=== PATIENT | female | born 1980 | race Caucasian/White ===

== ENCOUNTER → 2016-06-20 | Outpatient (CLI) | payer OTHER ==
--- NOTE | 2016-06-20 10:13 | ECHOS ---
DATE OF SERVICE: 06/20/2016 AGE: 35Y SEX: F HT: 65 WT: 220 lbs. Protocol Mt: X Others: Stress Echo Stage: IV Dur. of Exercise: 9:30 *Heart Rate Blood Pressure *Rest: 63 Rest: 116/68 * *Max. Achieved: 163 Maximum BP: 208/74 85% PMHR: ( ) 100% PMHR: 187 *METS: 10.9 INDICATIONS: CURRENT MEDICATIONS: None. CLINICAL INFORMATION: Screening for shortness of breath and family history of coronary artery disease, history of smoking 1/2 pack of cigarettes a day for 15 years. Allergic to BACTRIM and ERYTHROMYCIN. Resting ECG shows sinus rhythm, rate of 63 beats per minute, [place] interval 0.16, QRS of 0.08, normal ST-T waves. Utilizing a standard Mt protocol, a symptom limited treadmill test was performed. Patient exercised for total of 1-1/2 minutes, attained a peak heart rate of 163 beats per minute, which is approximately 87% of predicted maximum heart rate without any chest pain or pressure or ST segment deviations indicative of ischemia but the patient did have frequent PVCs at peak exertion without any symptoms. Baseline images show normal thickening and contractility. Post exercise images show improved contractility and thickening in all segments, consistent with normal study. 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 Normal stress echocardiogram. 2. Patient has average level of cardiopulmonary fitness as indicated by VO2 max and METs. 3. Patient did not report any symptoms throughout the study.
== END | disposition home or self-care (01) ==
LOC: RADNMMAIN 09:02
PROVIDERS: ATTEND Family Medicine
DX: R94.31 Abnormal electrocardiogram [ECG] [EKG] (principal)
CPT/HCPCS: 93017; 93350

== ENCOUNTER 2016-08-21 12:32 | Emergency (ER) | payer OTHER ==
[2016-08-21 13:40] VITALS: RESP 18
[2016-08-21] MEDS ORDERED: MORPHINE SULFATE 4 MG/ML SYRINGE IVP STA (14:45)
[2016-08-21] MEDS ORDERED: SODIUM CHLORIDE 0.9% 1,000 ML IV ONE (14:45)
[2016-08-21] MEDS ORDERED: KETOROLAC 30 MG/ML 1 ML VIAL IVP STA (14:45)
[2016-08-21] MEDS ORDERED: ONDANSETRON 4 MG/2 ML VIAL IVP STA (14:45)
--- NOTE | 2016-08-21 15:03 | ED ---
General Adult HPI - General Chief complaint: Abdominal Pain Stated complaint: Abd Pain Time Seen by Provider: 08/21/16 14:37 Source: patient, family, RN notes reviewed Mode of arrival: ambulatory Limitations: no limitations - History of Present Illness Initial comments: 36-year-old female with history of renal stones present in for left flank pain. Patient states left flank pain began 2 days ago and has been persistently worsening. She feels like there is some radiation to her left lower abdomen. She states pain feels similar to prior stones. She states her last kidney stone passed was about a year ago. She denies any other abdominal pain associated. She does have some nausea associated but no vomiting. She denies any diarrhea. She denies any fevers or chills. She denies any hematuria or dysuria at this time. - Related Data Home Medications Medication Instructions Recorded Confirmed HYDROcodone/APAP 7.5-325MG [[place] 1 tab PO DAILY PRN 08/21/16 08/21/16 7.5-325] Sertraline [Zoloft] 50 mg PO HS 08/21/16 08/21/16 Previous Rx's Medication Instructions Recorded HYDROcodone/APAP 5-325MG [[place] 1 tab PO Q6HR PRN #12 tab 08/21/16 5-325] Ibuprofen [Motrin] 800 mg PO Q8HR PRN #21 tab 08/21/16 Ondansetron Odt [Zofran Odt] 4 mg PO Q8HR PRN #12 tab 08/21/16 Tamsulosin HCl [Flomax] 0.4 mg PO DAILY #7 cap.er.24h 08/21/16 Allergies Allergy/AdvReac Type Severity Reaction Status Date / Time erythromycin base Allergy Unknown Verified 08/21/16 14:45 sulfamethoxazole Allergy Unknown Verified 08/21/16 14:45 [From Bactrim] trimethoprim [From Bactrim] Allergy Unknown Verified 08/21/16 14:45 Review of Systems ROS Statement: Those systems with pertinent positive or pertinent negative responses have been documented in the HPI. ROS Other: All systems not noted in ROS Statement are negative. Past Medical History Additional Past Medical History / Comment(s): KIDNEY STONES History of Any Multi-Drug Resistant Organisms: None Reported Past Surgical History: Section, Orthopedic Surgery, Tonsillectomy, Tubal Ligation Additional Past Surgical History / Comment(s): LEFT KNEE ARTHROSCOPY, CYSTOSCOPE , LITHOTRIPSY Past Psychological History: Depression Smoking Status: Current every day smoker Past Alcohol Use History: None Reported Past Drug Use History: Marijuana General Exam - General Exam Comments Initial Comments: General: Awake and Alert. No acute distress. Does not appear acutely ill. Obese.. Eyes: MONTEZ, EOM intact. No nystagmus. No scleral icterus. HENT: Atraumatic, normocephalic. Mucous membranes moist. Trachea midline. Neck: The neck is supple, there is no tenderness or JVD. Cardiovascular: Regular rate and rhythm. No murmur, rub, or gallop is appreciated. Distal pulses intact. Respiratory: Lungs are clear to auscultation bilaterally. No wheezes, rales, rhonchi. No respiratory distress. Gastrointestinal: Soft, Nontender. No rebound or guarding. Non-distended. No masses or organomegaly noted. Left CVA tenderness. Musculoskeletal: No tenderness. Normal ROM. No gross deformity. No strength deficits. Neurological: A&Ox3. CN II-XII grossly intact, There are no obvious motor or sensory deficits. Coordination appears grossly intact. Speech is normal. Skin: Skin is warm and dry and no rashes or lesions are noted. Psychiatric: Cooperative, appropriate mood & affect, normal judgment. Limitations: no limitations Course Vital Signs 08/21/16 08/21/16 13:37 16:47 Temperature 98.1 F 96.9 F L Pulse Rate 55 L 51 L Respiratory 18 18 Rate Blood Pressure 126/68 113/55 O2 Sat by Pulse 99 100 Oximetry Medical Decision Making - Medical Decision Making 36-year-old female presenting for left flank pain. History of renal stones. Start IV fluids and pain and nausea medication. CT results with small left nonobstructive ureteral stone. Lab work was stable CBC. Stable BMP. UA without evidence of infection Patient reevaluated and states she is feeling significantly improved after medications. Updated on results and imaging. Discussed plan for discharge home with urology follow-up. Rx for pain and nausea medication provided. Work note provided. Discussed concerning signs symptoms for immediate return to ED. Given follow-up information to Dr. Cullen upon request. Patient is agreeable with plan and discharge home. - Lab Data Result diagrams: 08/21/16 14:45 08/21/16 14:45 Lab Results 0308/21/16 08/21/16 Range/Units 14:45 14:45 14:45 WBC (3.8-10.6) k/uL RBC (3.80-5.40) m/uL Hgb (11.4-16.0) gm/dL Hct (34.0-46.0) % MCV (80.0-100.0) fL MCH (25.0-35.0) pg MCHC (31.0-37.0) g/dL RDW (11.5-15.5) % Plt Count (150-450) k/uL Neutrophils % % Lymphocytes % % Monocytes % % Eosinophils % % Basophils % % Neutrophils # (1.3-7.7) k/uL Lymphocytes # (1.0-4.8) k/uL Monocytes # (0-1.0) k/uL Eosinophils # (0-0.7) k/uL Basophils # (0-0.2) k/uL Sodium 140 (137-145) mmol/L Potassium 4.5 (3.5-5.1) mmol/L Chloride 109 H (98-107) mmol/L Carbon Dioxide 25 (22-30) mmol/L Anion Gap 6 mmol/L BUN 11 (7-17) mg/dL Creatinine 0.66 (0.52-1.04) mg/dL Est GFR (MDRD) Af Amer >60 (>60 ml/min/1.73 sqM) Est GFR (MDRD) Non-Af >60 (>60 ml/min/1.73 sqM) Glucose 88 (74-99) mg/dL Calcium 8.9 (8.4-10.2) mg/dL Urine Color Yellow Urine Appearance Clear (Clear) Urine pH 6.0 (5.0-8.0) Ur Specific [place] 1.016 (1.001-1.035) Urine Protein Negative (Negative) Urine Glucose (UA) Negative (Negative) Urine Ketones Negative (Negative) Urine Blood Moderate H (Negative) Urine Nitrite Negative (Negative) Urine Bilirubin Negative (Negative) Urine Urobilinogen <2.0 (<2.0) mg/dL Ur Leukocyte Esterase Negative (Negative) Urine RBC >182 H (0-5) /hpf Ur Squamous Epith Cells 1 (0-4) /hpf Urine HCG, Qual Not Detected (Not Detectd) 08/21/16 Range/Units 14:45 WBC 7.4 (3.8-10.6) k/uL RBC 4.99 (3.80-5.40) m/uL Hgb 14.8 (11.4-16.0) gm/dL Hct 44.1 (34.0-46.0) % MCV 88.4 (80.0-100.0) fL MCH 29.7 (25.0-35.0) pg MCHC 33.6 (31.0-37.0) g/dL RDW 13.7 (11.5-15.5) % Plt Count 185 (150-450) k/uL Neutrophils % 53 % Lymphocytes % 37 % Monocytes % 6 % Eosinophils % 2 % Basophils % 1 % Neutrophils # 3.9 (1.3-7.7) k/uL Lymphocytes # 2.7 (1.0-4.8) k/uL Monocytes # 0.4 (0-1.0) k/uL Eosinophils # 0.1 (0-0.7) k/uL Basophils # 0.0 (0-0.2) k/uL Sodium (137-145) mmol/L Potassium (3.5-5.1) mmol/L Chloride (98-107) mmol/L Carbon Dioxide (22-30) mmol/L Anion Gap mmol/L BUN (7-17) mg/dL Creatinine (0.52-1.04) mg/dL Est GFR (MDRD) Af Amer (>60 ml/min/1.73 sqM) Est GFR (MDRD) Non-Af (>60 ml/min/1.73 sqM) Glucose (74-99) mg/dL Calcium (8.4-10.2) mg/dL Urine Color Urine Appearance (Clear) Urine pH (5.0-8.0) Ur Specific [place] (1.001-1.035) Urine Protein (Negative) Urine Glucose (UA) (Negative) Urine Ketones (Negative) Urine Blood (Negative) Urine Nitrite (Negative) Urine Bilirubin (Negative) Urine Urobilinogen (<2.0) mg/dL Ur Leukocyte Esterase (Negative) Urine RBC (0-5) /hpf Ur Squamous Epith Cells (0-4) /hpf Urine HCG, Qual (Not Detectd) - Radiology Data Radiology results: report reviewed, image reviewed Disposition Clinical Impression: Flank pain, Left ureteral stone Disposition: HOME SELF-CARE Condition: Stable Instructions: Kidney Stones (ED), Abdominal Pain (ED) Prescriptions: HYDROcodone/APAP 5-325MG [[place] 5-325] 1 tab PO Q6HR PRN #12 tab PRN Reason: Pain Ibuprofen [Motrin] 800 mg PO Q8HR PRN #21 tab PRN Reason: Pain Ondansetron Odt [Zofran Odt] 4 mg PO Q8HR PRN #12 tab PRN Reason: Nausea Tamsulosin HCl [Flomax] 0.4 mg PO DAILY #7 cap.er.24h Referrals: Shawna Biswas MD [Primary Care Provider] - 1-2 days Luis Antonio Cullen MD [STAFF PHYSICIAN] - 1-2 days Time of Disposition: 16:09
[2016-08-21 15:11] LABS: Anion Gap 6 mmol/L; Blood Urea Nitrogen 11 mg/dL (7-17); Calcium 8.9 mg/dL (8.4-10.2); Carbon Dioxide 25 mmol/L (22-30); Chloride 109 mmol/L (98-107); Glucose 88 mg/dL (74-99); Non-African American GFR(MDRD) >60 (>60 ml/min/1.73 sqM); Potassium 4.5 mmol/L (3.5-5.1); Sodium 140 mmol/L (137-145)
[2016-08-21 15:13] LABS: Basophils % (A) 1 %; CH 29.2; CHCM 33.2; Eosinophils # (A) 0.1 k/uL (0-0.7); Eosinophils % (A) 2 %; HCT 44.1 % (34.0-46.0); HDW 2.43; HGB 14.8 gm/dL (11.4-16.0); Luc # (Auto) 0.16; Luc % (Auto) 2; Lymphocytes # (A) 2.7 k/uL (1.0-4.8); Lymphocytes % (A) 37 %; MCH 29.7 pg (25.0-35.0); MCHC 33.6 g/dL (31.0-37.0); MCV 88.4 fL (80.0-100.0); Mean Platelet Volume 6.6; Monocytes # (A) 0.4 k/uL (0-1.0); Monocytes % (A) 6 %; Neutrophils # (A) 3.9 k/uL (1.3-7.7); Neutrophils % (A) 53 %; RBC 4.99 m/uL (3.80-5.40); RDW 13.7 % (11.5-15.5); WBC 7.4 k/uL (3.8-10.6)
[2016-08-21 15:15] LABS: Appearance,Urine Clear (Clear); Bilirubin,Urine Negative (Negative); Glucose,Urine (UA) Negative (Negative); Ketones,Urine Negative (Negative); Leukocyte Esterase,Urine Negative (Negative); Nitrite,Urine Negative (Negative); Particle Count 1054; Protein,Urine Negative (Negative); RBC,Urine >182 /hpf (0-5); Specific Gravity,Urine 1.016 (1.001-1.035); Squamous Epithelial Cell,Urine 1 /hpf (0-4); UA Billing (MACRO vs. MICRO) MICRO; Urobilinogen,Urine <2.0 mg/dL (<2.0)
--- NOTE | 2016-08-21 15:54 | CT ---
EXAMINATION TYPE: CT abdomen pelvis wo con DATE OF EXAM: 08/21/2016 3:40 PM HISTORY: Left flank pain for couple days. CT DLP: 1040.20 mGycm. Automated Exposure Control for Dose Reduction was Utilized. TECHNIQUE: CT scan of the abdomen and pelvis is performed without oral or IV contrast. COMPARISON: CT abdomen and pelvis June 30, 2014 FINDINGS: Within the limitations of a non-contrast study, the following observations are made. LUNG BASES: No significant abnormality is appreciated. LIVER/GB: No significant abnormality is appreciated. PANCREAS: No significant abnormality is seen. SPLEEN: No significant abnormality is seen. ADRENALS: No significant abnormality is seen. KIDNEYS: There are 2-3 calculi measuring 2 mm scattered throughout the left kidney upper pole level s een best coronal images 67 through 69. No right-sided renal calculi are seen. There are stable pelvic phleboliths including 4 mm phlebolith on the left on axial image 139. No hydronephrosis or obstructi ng renal calculi are clearly seen bilaterally. No intraluminal calculi are seen in poorly distended b ladder. BOWEL: Low-lying cecum is present. There is no suspicious small or large bowel dilatation. Previously visualized nonopacified tubular structure in the right lower quadrant is not clearly identified on c urrent study. GENITAL ORGANS: No gross abnormality seen. LYMPH NODES: No greater than 1cm abdominal or pelvic lymph nodes are appreciated. OSSEOUS STRUCTURES: Bilateral pars defects L5 level redemonstrated without significant spondylolisthe sis. There is partially sacralized left L5 segment that shows some narrowing and sclerosis unchanged from prior. OTHER: No significant additional abnormality is seen. IMPRESSION: Tiny nonobstructing left-sided renal calculi. No hydronephrosis or obstructing renal calc alfreda clearly seen bilaterally. No significant new or acute finding is clearly seen to account for raquel ent's symptoms.
[2016-08-21 16:48] VITALS: BP 113/55; PULSE 51; TEMP 96.9
== END 2016-08-21 16:48 | disposition home or self-care (01) ==
LOC: EC 12:32
DX: N20.1 Calculus of ureter (principal); R11.0 Nausea; F17.200 Nicotine dependence, unspecified, uncomplicated; F32.9 Major depressive disorder, single episode, unspecified; Z79.899 Other long term (current) drug therapy; Z88.1 Allergy status to other antibiotic agents; Z88.2 Allergy status to sulfonamides; Z87.442 Personal history of urinary calculi
CPT/HCPCS: 99284; 96374; 96375 ×2; 96361; 36415; 80048; 85025; 81001; 81025; 74176; J2270; J2405; J1885

== ENCOUNTER 2016-08-23 12:50 | Emergency (ER) | payer OTHER ==
[2016-08-23] MEDS ORDERED: KETOROLAC 30 MG/ML 1 ML VIAL IVP STA (14:06)
[2016-08-23] MEDS ORDERED: SODIUM CHLORIDE 0.9% 1,000 ML IV ONE (14:06)
[2016-08-23] MEDS ORDERED: ONDANSETRON 4 MG/2 ML VIAL IVP STA (14:06)
[2016-08-23] MEDS ORDERED: MORPHINE SULFATE 4 MG/ML SYRINGE IVP STA (14:06)
[2016-08-23 14:17] LABS: Basophils % (A) 0 %; CH 29.2; CHCM 33.2; Eosinophils # (A) 0.1 k/uL (0-0.7); Eosinophils % (A) 2 %; HCT 40.8 % (34.0-46.0); HDW 2.44; HGB 13.5 gm/dL (11.4-16.0); Luc % (Auto) 2; Lymphocytes # (A) 2.1 k/uL (1.0-4.8); Lymphocytes % (A) 35 %; MCH 29.2 pg (25.0-35.0); MCHC 33.1 g/dL (31.0-37.0); MCV 88.3 fL (80.0-100.0); Mean Platelet Volume 6.9; Monocytes # (A) 0.4 k/uL (0-1.0); Monocytes % (A) 6 %; Neutrophils # (A) 3.3 k/uL (1.3-7.7); Neutrophils % (A) 55 %; RBC 4.62 m/uL (3.80-5.40); RDW 13.5 % (11.5-15.5); WBC 5.9 k/uL (3.8-10.6); WBC (Perox) 5.79
[2016-08-23 14:28] LABS: HCG,Qualitative Serum Not Detected
[2016-08-23 14:31] LABS: ALT 35 U/L (9-52); AST 20 U/L (14-36); Alkaline Phosphatase 46 U/L (38-126); Anion Gap 7 mmol/L; Blood Urea Nitrogen 12 mg/dL (7-17); Calcium 8.5 mg/dL (8.4-10.2); Carbon Dioxide 23 mmol/L (22-30); Chloride 112 mmol/L (98-107); Glucose 87 mg/dL (74-99); Non-African American GFR(MDRD) >60 (>60 ml/min/1.73 sqM); Potassium 4.2 mmol/L (3.5-5.1); Sodium 142 mmol/L (137-145); Total Bilirubin 0.4 mg/dL (0.2-1.3); Total Protein 6.2 g/dL (6.3-8.2)
[2016-08-23 14:46] LABS: Appearance,Urine Clear (Clear); Bacteria,Urine Rare /hpf; Bilirubin,Urine Negative (Negative); Glucose,Urine (UA) Negative (Negative); Ketones,Urine Negative (Negative); Leukocyte Esterase,Urine Trace (Negative); Mucus,Urine Rare /hpf; Nitrite,Urine Negative (Negative); Particle Count 1551; Protein,Urine Negative (Negative); RBC,Urine 4 /hpf (0-5); Specific Gravity,Urine 1.021 (1.001-1.035); Squamous Epithelial Cell,Urine 1 /hpf (0-4); UA Billing (MACRO vs. MICRO) MICRO; Urobilinogen,Urine <2.0 mg/dL (<2.0); WBC,Urine 5 /hpf (0-5)
--- NOTE | 2016-08-23 14:48 | US ---
EXAMINATION TYPE: US abdomen limited DATE OF EXAM: 08/23/2016 2:36 PM COMPARISON: CT in pacs CLINICAL HISTORY: Pain. Left kidney stones seen on recent CT, left flank pain EXAM MEASUREMENTS: Spleen: wnl Left Kidney: multiple small echogenic foci scattered throughout with largest measuring 0.5cm IMPRESSION: NONOBSTRUCTING LEFT-SIDED NEPHROLITHIASIS.
[2016-08-23] MEDS ORDERED: HYDROmorphone 1 MG/ML 1 ML SYRINGE IM STA (15:36)
[2016-08-23] MEDS ORDERED: HYDROmorphone 1 MG/ML 1 ML SYRINGE IVP STA (15:51)
--- NOTE | 2016-08-23 16:45 | ED ---
General Adult HPI - General Chief complaint: Abdominal Pain Stated complaint: revisit Kidney Stone Time Seen by Provider: 08/23/16 13:33 Source: patient Mode of arrival: ambulatory Limitations: no limitations - History of Present Illness Initial comments: 36-year-old female presented for evaluation of left flank pain radiating around to her left abdomen. She was seen at this facility 2 days ago and had a computed tomography scan that showed a nonobstructing kidney stones without hydronephrosis or hydroureter. Her pain is continued since then and she contacted her urologist who recommended that she come to this facility for further evaluation and management. She admits to vague urinary symptoms but denies any vaginal pain, bleeding, discharge. Mild associated nausea. Further denies shortness of breath chest pain fevers chills. - Related Data Home Medications Medication Instructions Recorded Confirmed Sertraline [Zoloft] 50 mg PO HS 08/21/16 08/23/16 Previous Rx's Medication Instructions Recorded HYDROcodone/APAP 5-325MG [[place] 1 tab PO Q6HR PRN #12 tab 08/21/16 5-325] Ibuprofen [Motrin] 800 mg PO Q8HR PRN #21 tab 08/21/16 Ondansetron Odt [Zofran Odt] 4 mg PO Q8HR PRN #12 tab 08/21/16 Tamsulosin HCl [Flomax] 0.4 mg PO DAILY #7 cap.er.24h 08/21/16 HYDROcodone/APAP 5-325MG [[place] 1 - 2 tab PO Q6HR PRN #14 tab 08/23/16 5-325] Ibuprofen [Motrin] 800 mg PO Q8HR PRN #20 tab 08/23/16 Allergies Allergy/AdvReac Type Severity Reaction Status Date / Time erythromycin base Allergy Unknown Verified 08/21/16 14:45 sulfamethoxazole Allergy Unknown Verified 08/21/16 14:45 [From Bactrim] trimethoprim [From Bactrim] Allergy Unknown Verified 08/21/16 14:45 Review of Systems ROS Statement: Those systems with pertinent positive or pertinent negative responses have been documented in the HPI. ROS Other: All systems not noted in ROS Statement are negative. Constitutional: Denies: fever, chills Eyes: Denies: eye pain, eye discharge, vision change ENT: Denies: ear pain, throat pain, dental pain Respiratory: Denies: cough, dyspnea, wheezes, hemoptysis Cardiovascular: Denies: chest pain, palpitations, dyspnea on exertion, orthopnea Endocrine: Denies: fatigue, polydipsia, polyuria Gastrointestinal: Reports: abdominal pain, nausea. Denies: vomiting, diarrhea, constipation, hematemesis, melena, hematochezia Genitourinary: Reports: urgency, frequency. Denies: dysuria, hematuria, discharge, abnormal menses, dyspareunia Musculoskeletal: Reports: back pain (Flank pain). Denies: myalgia Skin: Denies: rash, lesions Neurological: Denies: headache, weakness Psychiatric: Denies: anxiety, depression Past Medical History Additional Past Medical History / Comment(s): KIDNEY STONES History of Any Multi-Drug Resistant Organisms: None Reported Past Surgical History: Section, Orthopedic Surgery, Tonsillectomy, Tubal Ligation Additional Past Surgical History / Comment(s): LEFT KNEE ARTHROSCOPY, CYSTOSCOPE , LITHOTRIPSY Past Psychological History: Depression Smoking Status: Current every day smoker Past Alcohol Use History: None Reported Past Drug Use History: Marijuana General Exam Limitations: no limitations General appearance: alert, in distress Head exam: Present: atraumatic, normocephalic Eye exam: Present: normal appearance, PERRL, EOMI ENT exam: Present: normal exam, normal oropharynx Neck exam: Present: normal inspection, full ROM Respiratory exam: Present: normal lung sounds bilaterally. Absent: respiratory distress Cardiovascular Exam: Present: regular rate, normal rhythm GI/Abdominal exam: Present: soft. Absent: distended, tenderness Rectal exam: Present: deferred Extremities exam: Present: normal inspection, full ROM Back exam: Present: tenderness, CVA tenderness (L). Absent: normal inspection, full ROM, CVA tenderness (R) Neurological exam: Present: alert, oriented X3, CN II-XII intact, normal gait. Absent: altered Psychiatric exam: Present: normal affect, normal mood Skin exam: Present: warm, dry, intact Course Vital Signs 08/23/16 08/23/16 08/23/16 12:52 15:57 17:03 Temperature 98.1 F 97.8 F Pulse Rate 68 56 L 55 L Respiratory 17 20 16 Rate Blood Pressure 144/86 138/72 133/84 O2 Sat by Pulse 98 98 97 Oximetry Medical Decision Making - Medical Decision Making 36-year-old female with past medical history of kidney stones presenting for evaluation of left flank pain. She was evaluated at this facility 2 days ago and had nonobstructing left renal calculi without hydronephrosis or hydroureter. On physical examination the patient does seem mildly distressed and is holding her left side and states the pain radiates to her left lower quadrant abdomen. Abdomen is soft without peritoneal signs of rigidity, guarding, or rebound. There is left-sided CVA tenderness. Given her recent computed tomography scan will obtain a left-sided ultrasound for further evaluation. There is no pelvic pain and at this time there is no indication for a pelvic ultrasound. Labs revealed hematuria but otherwise no significant abnormalities. Ultrasound showed left renal calculi without hydronephrosis or hydroureter. The patient was reevaluated and had improvement in her pain. She was informed of these results and through shared decision making it was decided that she would be discharged with instructions to follow-up with her primary care physician and Dr. Grant her urologist. She is further advised to return to this facility if her symptoms should worsen or persist. She acknowledged an understanding of this information and agreed with this plan of care - Lab Data Result diagrams: 08/23/16 13:58 08/23/16 13:58 Lab Results 08/23/16 08/23/16 08/23/16 Range/Units 13:58 13:58 13:58 WBC 5.9 (3.8-10.6) k/uL RBC 4.62 (3.80-5.40) m/uL Hgb 13.5 (11.4-16.0) gm/dL Hct 40.8 (34.0-46.0) % MCV 88.3 (80.0-100.0) fL MCH 29.2 (25.0-35.0) pg MCHC 33.1 (31.0-37.0) g/dL RDW 13.5 (11.5-15.5) % Plt Count 170 (150-450) k/uL Neutrophils % 55 % Lymphocytes % 35 % Monocytes % 6 % Eosinophils % 2 % Basophils % 0 % Neutrophils # 3.3 (1.3-7.7) k/uL Lymphocytes # 2.1 (1.0-4.8) k/uL Monocytes # 0.4 (0-1.0) k/uL Eosinophils # 0.1 (0-0.7) k/uL Basophils # 0.0 (0-0.2) k/uL Sodium 142 (137-145) mmol/L Potassium 4.2 (3.5-5.1) mmol/L Chloride 112 H (98-107) mmol/L Carbon Dioxide 23 (22-30) mmol/L Anion Gap 7 mmol/L BUN 12 (7-17) mg/dL Creatinine 0.60 (0.52-1.04) mg/dL Est GFR (MDRD) Af Amer >60 (>60 ml/min/1.73 sqM) Est GFR (MDRD) Non-Af >60 (>60 ml/min/1.73 sqM) Glucose 87 (74-99) mg/dL Calcium 8.5 (8.4-10.2) mg/dL Total Bilirubin 0.4 (0.2-1.3) mg/dL AST 20 (14-36) U/L ALT 35 (9-52) U/L Alkaline Phosphatase 46 (38-126) U/L Total Protein 6.2 L (6.3-8.2) g/dL Albumin 3.5 (3.5-5.0) g/dL Lipase 65 (23-300) U/L HCG, Qual Not Detected Urine Color Yellow Urine Appearance Clear (Clear) Urine pH 6.0 (5.0-8.0) Ur Specific [place] 1.021 (1.001-1.035) Urine Protein Negative (Negative) Urine Glucose (UA) Negative (Negative) Urine Ketones Negative (Negative) Urine Blood Large H (Negative) Urine Nitrite Negative (Negative) Urine Bilirubin Negative (Negative) Urine Urobilinogen <2.0 (<2.0) mg/dL Ur Leukocyte Esterase Trace H (Negative) Urine RBC 4 (0-5) /hpf Urine WBC 5 (0-5) /hpf Ur Squamous Epith Cells 1 (0-4) /hpf Urine Bacteria Rare H (None) /hpf Urine Mucus Rare H (None) /hpf Disposition Clinical Impression: Flank pain, Hematuria Disposition: HOME SELF-CARE Condition: Stable Instructions: Abdominal Pain (ED), Kidney Stones (ED) Additional Instructions: Please use medication as discussed. Please follow up with family doctor if symptoms have not improved over the next two days. Please return to the emergency room if your symptoms increase or worsen or for any other concerns. Prescriptions: HYDROcodone/APAP 5-325MG [[place] 5-325] 1 - 2 tab PO Q6HR PRN #14 tab PRN Reason: Analgesia Ibuprofen [Motrin] 800 mg PO Q8HR PRN #20 tab PRN Reason: Analgesia Referrals: Shawna Biswas MD [Primary Care Provider] - 1-2 days Time of Disposition: 16:44
[2016-08-23 17:03] VITALS: BP 133/84; PULSE 55; RESP 16; TEMP 97.8
== END 2016-08-23 17:00 | disposition home or self-care (01) ==
LOC: EC 12:50
DX: R10.32 Left lower quadrant pain (principal); R31.9 Hematuria, unspecified; R11.0 Nausea; N20.0 Calculus of kidney; F32.9 Major depressive disorder, single episode, unspecified; F17.200 Nicotine dependence, unspecified, uncomplicated; Z98.51 Tubal ligation status; Z98.890 Other specified postprocedural states; Z79.899 Other long term (current) drug therapy; Z88.1 Allergy status to other antibiotic agents; Z88.2 Allergy status to sulfonamides
CPT/HCPCS: 99284; 96374; 96375 ×3; 96361; 36415; 80053; 83690; 85025; 81001; 84703; 76705; J2270; J2405; J1885; J1170

== ENCOUNTER 2016-10-13 21:07 | Emergency (ER) | payer OTHER ==
[2016-10-13] MEDS ORDERED: HYDROmorphone 1 MG/ML 1 ML SYRINGE IVP STA ×2 (22:31→23:40)
[2016-10-13] MEDS ORDERED: SODIUM CHLORIDE 0.9% 1,000 ML IV STA (22:31)
[2016-10-13] MEDS ORDERED: ONDANSETRON 4 MG/2 ML VIAL IVP STA (22:31)
[2016-10-13 22:51] LABS: Basophils # (A) 0.1 k/uL (0-0.2); Basophils % (A) 1 %; CH 29.5; CHCM 33.5; Eosinophils # (A) 0.2 k/uL (0-0.7); Eosinophils % (A) 2 %; HCT 43.1 % (34.0-46.0); HDW 2.37; HGB 14.5 gm/dL (11.4-16.0); Luc # (Auto) 0.18; Luc % (Auto) 2; Lymphocytes # (A) 3.1 k/uL (1.0-4.8); Lymphocytes % (A) 33 %; MCH 29.8 pg (25.0-35.0); MCHC 33.6 g/dL (31.0-37.0); MCV 88.5 fL (80.0-100.0); Mean Platelet Volume 7.1; Monocytes # (A) 0.7 k/uL (0-1.0); Monocytes % (A) 7 %; Neutrophils % (A) 55 %; RBC 4.87 m/uL (3.80-5.40); RDW 13.4 % (11.5-15.5); WBC 9.2 k/uL (3.8-10.6); WBC (Perox) 9.05
[2016-10-13 22:55] LABS: Appearance,Urine Cloudy (Clear); Bacteria,Urine Rare /hpf; Bilirubin,Urine Negative (Negative); Glucose,Urine (UA) Negative (Negative); Ketones,Urine Negative (Negative); Leukocyte Esterase,Urine Small (Negative); Mucus,Urine Rare /hpf; Nitrite,Urine Negative (Negative); PH, Urine 7.5 (5.0-8.0); Particle Count 1963; Protein,Urine Negative (Negative); RBC,Urine 2 /hpf (0-5); Specific Gravity,Urine 1.013 (1.001-1.035); Squamous Epithelial Cell,Urine 3 /hpf (0-4); UA Billing (MACRO vs. MICRO) MICRO; Urobilinogen,Urine <2.0 mg/dL (<2.0); WBC,Urine 2 /hpf (0-5)
[2016-10-13 23:03] LABS: ALT 32 U/L (9-52); AST 21 U/L (14-36); Alkaline Phosphatase 51 U/L (38-126); Amylase 62 U/L (30-110); Anion Gap 9 mmol/L; Blood Urea Nitrogen 14 mg/dL (7-17); Carbon Dioxide 21 mmol/L (22-30); Chloride 111 mmol/L (98-107); Glucose 82 mg/dL (74-99); Non-African American GFR(MDRD) >60 (>60 ml/min/1.73 sqM); Potassium 4.4 mmol/L (3.5-5.1); Sodium 141 mmol/L (137-145); Total Bilirubin 0.3 mg/dL (0.2-1.3); Total Protein 6.7 g/dL (6.3-8.2)
--- NOTE | 2016-10-13 23:15 | ED ---
Back Pain HPI - General Chief Complaint: Back Pain/Injury Stated Complaint: poss kidney stone Time Seen by Provider: 10/13/16 22:20 Source: patient, RN notes reviewed, old records reviewed - History of Present Illness Initial Comments: This is a 36-year-old female presents emergency Department with chief complaint of right flank pain. Patient reports that she has a history of kidney stones. She reports that she's had this pain for the past 3 days. Patient states she's been taking Motrin with little help. Denies any fever or chills. States the pain occasionally will radiate towards her right lower quadrant. Patient denies any diarrhea, nausea or vomiting. She states that she had a kidney stone 2 months ago on the left side. She reports that this pain feels similar to her previous ones. Patient states she's had no recent CAT scans. Patient denies any shortness breath or chest pain. - Related Data Home Medications Medication Instructions Recorded Confirmed Sertraline [Zoloft] 50 mg PO HS 08/21/16 10/13/16 rOPINIRole HCL [Requip] 0.5 mg PO HS 10/13/16 10/13/16 Previous Rx's Medication Instructions Recorded HYDROcodone/APAP 5-325MG [[place] 1 - 2 tab PO Q6HR PRN #14 tab 08/23/16 5-325] HYDROcodone/APAP 10-325MG [[place] 1 tab PO Q6H PRN #12 tab 10/14/16 10-325] Allergies Allergy/AdvReac Type Severity Reaction Status Date / Time erythromycin base Allergy Rash/Hives Verified 10/13/16 22:04 sulfamethoxazole Allergy Rash/Hives Verified 10/13/16 22:04 [From Bactrim] trimethoprim [From Bactrim] Allergy Rash/Hives Verified 10/13/16 22:04 Review of Systems ROS Statement: Those systems with pertinent positive or pertinent negative responses have been documented in the HPI. ROS Other: All systems not noted in ROS Statement are negative. Past Medical History Additional Past Medical History / Comment(s): KIDNEY STONES History of Any Multi-Drug Resistant Organisms: None Reported Past Surgical History: Section, Orthopedic Surgery, Tonsillectomy, Tubal Ligation Additional Past Surgical History / Comment(s): LEFT KNEE ARTHROSCOPY, CYSTOSCOPE , LITHOTRIPSY Past Psychological History: Depression Smoking Status: Current every day smoker Past Alcohol Use History: None Reported Past Drug Use History: Marijuana General Exam - General Exam Comments Initial Comments: Pleasant 36-year-old female. No distress. General appearance: alert, in no apparent distress Head exam: Present: atraumatic, normocephalic, normal inspection Eye exam: Present: normal appearance, PERRL, EOMI. Absent: scleral icterus, conjunctival injection, periorbital swelling ENT exam: Present: normal exam, mucous membranes moist Neck exam: Present: normal inspection. Absent: tenderness, meningismus, lymphadenopathy Respiratory exam: Present: normal lung sounds bilaterally. Absent: respiratory distress, wheezes, rales, rhonchi, stridor Cardiovascular Exam: Present: regular rate, normal rhythm, normal heart sounds. Absent: systolic murmur, diastolic murmur, rubs, gallop, clicks GI/Abdominal exam: Present: soft, tenderness ( RLQ and RUQ tenderness), normal bowel sounds. Absent: distended, guarding, rebound, rigid Extremities exam: Present: normal inspection, full ROM, normal capillary refill. Absent: tenderness, pedal edema, joint swelling, calf tenderness Back exam: Present: CVA tenderness (R) Neurological exam: Present: alert, oriented X3, CN II-XII intact Psychiatric exam: Present: normal affect, normal mood Skin exam: Present: warm, dry, intact, normal color. Absent: rash Course Vital Signs 10/13/16 10/13/16 10/14/16 21:43 23:52 02:12 Temperature 97.4 F L 98.3 F 97.2 F L Pulse Rate 54 L 57 L 55 L Respiratory 20 18 18 Rate Blood Pressure 128/71 140/89 155/81 O2 Sat by Pulse 99 97 98 Oximetry Medical Decision Making - Medical Decision Making This is a 36-year-old female presents emergency Department with chief complaint of right flank pain. Patient reports that she has a history of kidney stones. She reports that she's had this pain for the past 3 days. Patient states she's been taking Motrin with little help. Denies any fever or chills. Patient does have significant right upper quadrant right lower quadrant and right CVA tenderness. Patient reports that her pain feels very similar to her kidney stones. Lab work was reviewed urinalysis negative for any signs of blood or infection. Liver enzymes and white count were all normal. Patient continues to have significant tenderness despite pain medication. Patient will receive a CT abdomen and pelvis without contrast rule out appendicitis or kidney stone. CT abdomen and pelvis is negative for any acute process. Discussed the findings with the patient. Discussed that she may have to follow-up with GI for possible HIDA scan. Patient also advised to follow-up with her primary care provider tomorrow. Patient understands treatment plan will comply. Return parameters were discussed. - Lab Data Result diagrams: 10/13/16 22:10 10/13/16 22:10 Lab Results 10/13/16 10/13/16 10/13/16 Range/Units 22:10 22:10 22:10 WBC 9.2 (3.8-10.6) k/uL RBC 4.87 (3.80-5.40) m/uL Hgb 14.5 (11.4-16.0) gm/dL Hct 43.1 (34.0-46.0) % MCV 88.5 (80.0-100.0) fL MCH 29.8 (25.0-35.0) pg MCHC 33.6 (31.0-37.0) g/dL RDW 13.4 (11.5-15.5) % Plt Count 196 (150-450) k/uL Neutrophils % 55 % Lymphocytes % 33 % Monocytes % 7 % Eosinophils % 2 % Basophils % 1 % Neutrophils # 5.0 (1.3-7.7) k/uL Lymphocytes # 3.1 (1.0-4.8) k/uL Monocytes # 0.7 (0-1.0) k/uL Eosinophils # 0.2 (0-0.7) k/uL Basophils # 0.1 (0-0.2) k/uL Sodium 141 (137-145) mmol/L Potassium 4.4 (3.5-5.1) mmol/L Chloride 111 H (98-107) mmol/L Carbon Dioxide 21 L (22-30) mmol/L Anion Gap 9 mmol/L BUN 14 (7-17) mg/dL Creatinine 0.70 (0.52-1.04) mg/dL Est GFR (MDRD) Af Amer >60 (>60 ml/min/1.73 sqM) Est GFR (MDRD) Non-Af >60 (>60 ml/min/1.73 sqM) Glucose 82 (74-99) mg/dL Calcium 9.0 (8.4-10.2) mg/dL Total Bilirubin 0.3 (0.2-1.3) mg/dL AST 21 (14-36) U/L ALT 32 (9-52) U/L Alkaline Phosphatase 51 (38-126) U/L Total Protein 6.7 (6.3-8.2) g/dL Albumin 3.8 (3.5-5.0) g/dL Amylase 62 (30-110) U/L Lipase 156 (23-300) U/L Urine Color Light Yellow Urine Appearance Cloudy H (Clear) Urine pH 7.5 (5.0-8.0) Ur Specific [place] 1.013 (1.001-1.035) Urine Protein Negative (Negative) Urine Glucose (UA) Negative (Negative) Urine Ketones Negative (Negative) Urine Blood Negative (Negative) Urine Nitrite Negative (Negative) Urine Bilirubin Negative (Negative) Urine Urobilinogen <2.0 (<2.0) mg/dL Ur Leukocyte Esterase Small H (Negative) Urine RBC 2 (0-5) /hpf Urine WBC 2 (0-5) /hpf Ur Squamous Epith Cells 3 (0-4) /hpf Urine Bacteria Rare H (None) /hpf Urine Mucus Rare H (None) /hpf Urine Yeast (Budding) Rare H (None) /hpf - Radiology Data Radiology results: report reviewed [facility] x-rays negative for any acute process. CT abdomen and pelvis is negative for any significant acute process. Evidence of left renal colliculi. No evidence of any right-sided colliculi or hydronephrosis. Very small nonobstructing left renal comply. No evidence of acute abdominal pelvic disease. No evidence of appendicitis. No evidence of inflammatory changes or fluid collections identified. There are a few scattered colonic diverticula. No evidence of diverticulitis. Disposition Clinical Impression: Abdominal pain, Flank pain Disposition: HOME SELF-CARE Condition: Good Instructions: Abdominal Pain (ED), Flank Pain (ED) Additional Instructions: Patient is to rest, increase fluids. Take pain medication as described. Patient should follow up with your primary care provider tomorrow as well as GI specialist if symptoms continue to persist. Prescriptions: HYDROcodone/APAP 10-325MG [[place] 10-325] 1 tab PO Q6H PRN #12 tab PRN Reason: Pain Referrals: Shawna Biswas MD [Primary Care Provider] - 1-2 days Siomara Escoto MD [STAFF PHYSICIAN] - 1-2 days Time of Disposition: 01:48
--- NOTE | 2016-10-13 23:18 | XR ---
EXAM: XR Abdomen, 1 View CLINICAL HISTORY: Reason: abdominal pain TECHNIQUE: Frontal supine view of the abdomen/pelvis. COMPARISON: No relevant prior studies available. FINDINGS: Limitations: Limited Single erect abdominal radiograph includes the upper and mid abdomen. Lower abdomen and pelvis not included on current examination. Intraperitoneal space: Imaged bowel gas is unremarkable. No evidence of bowel obstruction or pneumoperitoneum. Gastrointestinal tract: No evidence of bowel obstruction. Organs: No radiopaque renal calculi or abnormal abdominal Secretions identified. Bones/joints: Imaged bony structures are unremarkable IMPRESSION: Limited abdominal radiograph. No radiographic evidence of acute abdominal disease or bowel obstruction.
[2016-10-13 23:53] VITALS: RESP 18
--- NOTE | 2016-10-14 01:22 | CT ---
EXAM: CT Abdomen and Pelvis Without Intravenous Contrast CLINICAL HISTORY: Reason: Pain TECHNIQUE: Axial computed tomography images of the abdomen and pelvis without intravenous contrast. CTDI is 21.5 mGy and DLP is 1022.4 mGy-cm This CT exam was performed using one or more of the following dose reduction techniques: automated exposure control, adjustment of the mA and/or kV according to patient size, and/or use of iterative reconstruction technique. COMPARISON: CT abdomen-pelvis 08/21/2016 FINDINGS: Lower thorax: Imaged lung bases are unremarkable. ABDOMEN: Liver: Liver is unremarkable. Gallbladder and bile ducts: Gallbladder is incompletely distended. No radiopaque gallstones or pericholecystic inflammatory changes. No ductal dilation. Pancreas: Pancreas is unremarkable. No ductal dilation. Spleen: Spleen is unremarkable. Adrenals: No adrenal masses Kidneys and ureters: Kidneys are normal size bilaterally. There are 2 small approximately 2 mm nonobstructing calculi mid zone left kidney. No evidence of hydronephrosis. No obstructing ureteral calculi identified. Stomach and bowel: No evidence of bowel obstruction or pneumoperitoneum. Appendix not clearly identified. No evidence of appendicitis. No abnormal inflammatory changes or fluid collections identified. There are a few scattered colonic diverticula. No evidence of diverticulitis. Appendix: See above. PELVIS: Bladder: Unremarkable. No stones. Reproductive: Unremarkable as visualized. ABDOMEN and PELVIS: Intraperitoneal space: See above. Bones/joints: No acute bony abnormalities identified. Soft tissues: Minimal fat-containing umbilical hernia. Vasculature: No abdominal aortic aneurysm. Lymph nodes: No abnormal masses or pathologically enlarged lymphadenopathy. IMPRESSION: Very small nonobstructing left renal calculi. No evidence of acute abdominal-pelvic disease.
[2016-10-14 02:14] VITALS: BP 155/81; PULSE 55; TEMP 97.2
== END 2016-10-14 02:12 | disposition home or self-care (01) ==
LOC: EC 21:07
DX: R10.31 Right lower quadrant pain (principal); R10.11 Right upper quadrant pain; F32.9 Major depressive disorder, single episode, unspecified; F17.200 Nicotine dependence, unspecified, uncomplicated; Z79.899 Other long term (current) drug therapy; Z88.1 Allergy status to other antibiotic agents; Z88.2 Allergy status to sulfonamides; Z87.442 Personal history of urinary calculi; Z98.890 Other specified postprocedural states
CPT/HCPCS: 36415; 80053; 82150; 83690; 85025; 81001; 74000; 74176; 99284; 96374; 96375; 96376; 96361; J2405; J1170

== ENCOUNTER 2016-10-18 19:53 | Emergency (ER) | payer OTHER ==
[2016-10-18 20:43] VITALS: RESP 18
[2016-10-18] MEDS ORDERED: SODIUM CHLORIDE 0.9% 1,000 ML IV ONE (22:43)
[2016-10-18] MEDS ORDERED: HYDROmorphone 1 MG/ML 1 ML SYRINGE IVP STA (23:10)
[2016-10-18] MEDS ORDERED: ONDANSETRON 4 MG/2 ML VIAL IVP STA (23:11)
[2016-10-18 23:19] LABS: Basophils # (A) 0.1 k/uL (0-0.2); Basophils % (A) 1 %; CH 29.7; CHCM 33.5; Eosinophils # (A) 0.3 k/uL (0-0.7); Eosinophils % (A) 3 %; HCT 45.4 % (34.0-46.0); HGB 15.3 gm/dL (11.4-16.0); Luc # (Auto) 0.16; Luc % (Auto) 2; Lymphocytes # (A) 3.4 k/uL (1.0-4.8); Lymphocytes % (A) 39 %; MCHC 33.8 g/dL (31.0-37.0); MCV 88.8 fL (80.0-100.0); Monocytes # (A) 0.5 k/uL (0-1.0); Monocytes % (A) 6 %; Neutrophils # (A) 4.3 k/uL (1.3-7.7); Neutrophils % (A) 49 %; RBC 5.12 m/uL (3.80-5.40); RDW 13.4 % (11.5-15.5); WBC 8.7 k/uL (3.8-10.6); WBC (Perox) 8.79
[2016-10-18 23:27] LABS: Appearance,Urine Cloudy (Clear); Bilirubin,Urine Negative (Negative); Glucose,Urine (UA) Negative (Negative); Ketones,Urine Negative (Negative); Leukocyte Esterase,Urine Moderate (Negative); Mucus,Urine Rare /hpf; Nitrite,Urine Negative (Negative); PH, Urine 5.5 (5.0-8.0); Particle Count 3086; Protein,Urine Trace (Negative); RBC,Urine >182 /hpf (0-5); Specific Gravity,Urine 1.021 (1.001-1.035); Squamous Epithelial Cell,Urine 2 /hpf (0-4); UA Billing (MACRO vs. MICRO) MICRO; Urobilinogen,Urine <2.0 mg/dL (<2.0); WBC,Urine 25 /hpf (0-5)
--- NOTE | 2016-10-18 23:30 | ED ---
Abdominal Pain HPI - General Chief Complaint: Abdominal Pain Stated Complaint: gall bladder issues Time Seen by Provider: 10/18/16 22:15 Source: patient, RN notes reviewed Mode of arrival: ambulatory Limitations: no limitations - History of Present Illness Initial Comments: patient is a 36-year-old female presents emergency room for evaluation abdominal pain. Patient states she was here a few days ago for what she thought was kidney stone pain. Patient states she had a CT done no kidney stones were found. patient states that she followed-up with a general surgeon this morning. patient states she was given a script to have ultrasound for her gallbladder today. patient states that she has not scheduled an appointment for an ultrasound yet. patient states that she had a chicken mariama earlier today and had increasing right upper quadrant pain. patient states the pain has not subsided. patient states she is having 10 out of 10 pain. patient states the pain is worse whenever she moves. patient is nauseous but denies vomiting. patient denies constipation or diarrhea. patient denies headache or dizziness. patient denies chest pain or shortness of breath. - Related Data Home Medications Medication Instructions Recorded Confirmed Sertraline [Zoloft] 50 mg PO HS 08/21/16 10/18/16 clonazePAM [KlonoPIN] 0.5 mg PO HS PRN 10/18/16 10/18/16 rOPINIRole HCL [Requip] 0.25 mg PO HS 10/18/16 10/18/16 Previous Rx's Medication Instructions Recorded HYDROcodone/APAP 5-325MG [[place] 1 tab PO Q6HR PRN #10 tab 10/19/16 5-325] Allergies Allergy/AdvReac Type Severity Reaction Status Date / Time erythromycin base Allergy Rash/Hives Verified 10/18/16 22:40 sulfamethoxazole Allergy Rash/Hives Verified 10/18/16 22:40 [From Bactrim] trimethoprim [From Bactrim] Allergy Rash/Hives Verified 10/18/16 22:40 Review of Systems ROS Statement: Those systems with pertinent positive or pertinent negative responses have been documented in the HPI. ROS Other: All systems not noted in ROS Statement are negative. Past Medical History Additional Past Medical History / Comment(s): KIDNEY STONES History of Any Multi-Drug Resistant Organisms: None Reported Past Surgical History: Section, Orthopedic Surgery, Tonsillectomy, Tubal Ligation Additional Past Surgical History / Comment(s): LEFT KNEE ARTHROSCOPY, CYSTOSCOPE , LITHOTRIPSY Past Psychological History: Depression Smoking Status: Current every day smoker Past Alcohol Use History: None Reported Past Drug Use History: Marijuana General Exam - General Exam Comments Initial Comments: sitting in exam room, no acute distress. Limitations: no limitations General appearance: alert, in no apparent distress Head exam: Present: atraumatic, normocephalic, normal inspection Eye exam: Present: normal appearance ENT exam: Present: normal exam Neck exam: Present: normal inspection Respiratory exam: Present: normal lung sounds bilaterally. Absent: respiratory distress Cardiovascular Exam: Present: regular rate, normal rhythm, normal heart sounds GI/Abdominal exam: Present: soft, tenderness (right upper quadrant), normal bowel sounds. Absent: distended, guarding, rebound, rigid Extremities exam: Present: normal inspection Back exam: Present: normal inspection Neurological exam: Present: alert, oriented X3, CN II-XII intact, normal gait Psychiatric exam: Present: normal affect, normal mood Skin exam: Present: warm, dry, intact, normal color. Absent: rash Course Vital Signs 10/18/16 20:40 Temperature 98.6 F Pulse Rate 55 L Respiratory 18 Rate Blood Pressure 126/71 O2 Sat by Pulse 99 Oximetry Medical Decision Making - Medical Decision Making patient is a 36-year-old female presents emergency room for reevaluation right upper quadrant pain. Labs show no concerning findings. Ultrasound significant for cholelithiasis. Advised patient to refrain from fatty foods. Will have patient follow-up with general surgeon. Patient states she understands everything that was discussed with her. Return parameters discussed. Case discussed with Dr. Burnett. - Lab Data Result diagrams: 10/18/16 23:00 10/18/16 23:00 Lab Results 10/18/16 10/18/16 10/18/16 Range/Units 22:50 22:50 23:00 WBC (3.8-10.6) k/uL RBC (3.80-5.40) m/uL Hgb (11.4-16.0) gm/dL Hct (34.0-46.0) % MCV (80.0-100.0) fL MCH (25.0-35.0) pg MCHC (31.0-37.0) g/dL RDW (11.5-15.5) % Plt Count (150-450) k/uL Neutrophils % % Lymphocytes % % Monocytes % % Eosinophils % % Basophils % % Neutrophils # (1.3-7.7) k/uL Lymphocytes # (1.0-4.8) k/uL Monocytes # (0-1.0) k/uL Eosinophils # (0-0.7) k/uL Basophils # (0-0.2) k/uL Sodium 140 (137-145) mmol/L Potassium 4.8 (3.5-5.1) mmol/L Chloride 110 H (98-107) mmol/L Carbon Dioxide 20 L (22-30) mmol/L Anion Gap 10 mmol/L BUN 12 (7-17) mg/dL Creatinine 0.60 (0.52-1.04) mg/dL Est GFR (MDRD) Af Amer >60 (>60 ml/min/1.73 sqM) Est GFR (MDRD) Non-Af >60 (>60 ml/min/1.73 sqM) Glucose 98 (74-99) mg/dL Calcium 9.3 (8.4-10.2) mg/dL Total Bilirubin 0.6 (0.2-1.3) mg/dL AST 33 (14-36) U/L ALT 29 (9-52) U/L Alkaline Phosphatase 47 (38-126) U/L Total Protein 7.5 (6.3-8.2) g/dL Albumin 4.4 (3.5-5.0) g/dL Amylase 75 (30-110) U/L Lipase 138 (23-300) U/L Urine Color Light Red Urine Appearance Cloudy H (Clear) Urine pH 5.5 (5.0-8.0) Ur Specific [place] 1.021 (1.001-1.035) Urine Protein Trace H (Negative) Urine Glucose (UA) Negative (Negative) Urine Ketones Negative (Negative) Urine Blood Large H (Negative) Urine Nitrite Negative (Negative) Urine Bilirubin Negative (Negative) Urine Urobilinogen <2.0 (<2.0) mg/dL Ur Leukocyte Esterase Moderate H (Negative) Urine RBC >182 H (0-5) /hpf Urine WBC 25 H (0-5) /hpf Ur Squamous Epith Cells 2 (0-4) /hpf Urine Mucus Rare H (None) /hpf Urine HCG, Qual Not Detected (Not Detectd) 10/18/16 Range/Units 23:00 WBC 8.7 (3.8-10.6) k/uL RBC 5.12 (3.80-5.40) m/uL Hgb 15.3 (11.4-16.0) gm/dL Hct 45.4 (34.0-46.0) % MCV 88.8 (80.0-100.0) fL MCH 30.0 (25.0-35.0) pg MCHC 33.8 (31.0-37.0) g/dL RDW 13.4 (11.5-15.5) % Plt Count 227 (150-450) k/uL Neutrophils % 49 % Lymphocytes % 39 % Monocytes % 6 % Eosinophils % 3 % Basophils % 1 % Neutrophils # 4.3 (1.3-7.7) k/uL Lymphocytes # 3.4 (1.0-4.8) k/uL Monocytes # 0.5 (0-1.0) k/uL Eosinophils # 0.3 (0-0.7) k/uL Basophils # 0.1 (0-0.2) k/uL Sodium (137-145) mmol/L Potassium (3.5-5.1) mmol/L Chloride (98-107) mmol/L Carbon Dioxide (22-30) mmol/L Anion Gap mmol/L BUN (7-17) mg/dL Creatinine (0.52-1.04) mg/dL Est GFR (MDRD) Af Amer (>60 ml/min/1.73 sqM) Est GFR (MDRD) Non-Af (>60 ml/min/1.73 sqM) Glucose (74-99) mg/dL Calcium (8.4-10.2) mg/dL Total Bilirubin (0.2-1.3) mg/dL AST (14-36) U/L ALT (9-52) U/L Alkaline Phosphatase (38-126) U/L Total Protein (6.3-8.2) g/dL Albumin (3.5-5.0) g/dL Amylase (30-110) U/L Lipase (23-300) U/L Urine Color Urine Appearance (Clear) Urine pH (5.0-8.0) Ur Specific [place] (1.001-1.035) Urine Protein (Negative) Urine Glucose (UA) (Negative) Urine Ketones (Negative) Urine Blood (Negative) Urine Nitrite (Negative) Urine Bilirubin (Negative) Urine Urobilinogen (<2.0) mg/dL Ur Leukocyte Esterase (Negative) Urine RBC (0-5) /hpf Urine WBC (0-5) /hpf Ur Squamous Epith Cells (0-4) /hpf Urine Mucus (None) /hpf Urine HCG, Qual (Not Detectd) - Radiology Data Radiology results: report reviewed, image reviewed Disposition Clinical Impression: Cholelithiasis Disposition: HOME SELF-CARE Condition: Good Instructions: Biliary Colic (ED), Gallstones (ED) Additional Instructions: Please follow up with general surgeon. Refrain from fatty foods. If any new symptom arises or symptoms worsen, return to ER as soon as possible. Prescriptions: HYDROcodone/APAP 5-325MG [[place] 5-325] 1 tab PO Q6HR PRN #10 tab PRN Reason: Pain Referrals: Shawna Biswas MD [Primary Care Provider] - 1-2 days Lindsay Law MD [STAFF PHYSICIAN] - 1-2 days Time of Disposition: 00:28
[2016-10-18 23:45] LABS: Amylase 75 U/L (30-110); Anion Gap 10 mmol/L; Calcium 9.3 mg/dL (8.4-10.2); Carbon Dioxide 20 mmol/L (22-30); Chloride 110 mmol/L (98-107); Glucose 98 mg/dL (74-99); Non-African American GFR(MDRD) >60 (>60 ml/min/1.73 sqM); Sodium 140 mmol/L (137-145); Total Bilirubin 0.6 mg/dL (0.2-1.3)
[2016-10-18 23:46] LABS: ALT 29 U/L (9-52); AST 33 U/L (14-36); Alkaline Phosphatase 47 U/L (38-126); Blood Urea Nitrogen 12 mg/dL (7-17); Potassium 4.8 mmol/L (3.5-5.1); Total Protein 7.5 g/dL (6.3-8.2)
--- NOTE | 2016-10-19 00:15 | US ---
EXAM: US ABDOMEN INDICATION: 36-year-old female with pain. TECHNIQUE: Real-time imaging of the abdomen is performed in transverse and longitudinal projections. COMPARISON: CT of the abdomen pelvis 10/13/2016.. FINDINGS: The liver is normal in size and echotexture. No focal mass lesions are seen. The gallbladder contains subcentimeter non-shadowing gallstone. No gallbladder wall thickening or pericholecystic fluid is present. The common bile duct is normal in caliber. The visualized portions of the pancreas are unremarkable. Right kidney is unremarkable. No free fluid is identified. Visualized segments of the aorta are unremarkable. IMPRESSION: Cholelithiasis with no sonographic evidence of acute cholecystitis.
[2016-10-19] MEDS ORDERED: HYDROmorphone 1 MG/ML 1 ML SYRINGE IVP STA (01:16)
[2016-10-19 01:31] VITALS: BP 121/67; PULSE 61; TEMP 98.1
== END 2016-10-19 01:45 | disposition home or self-care (01) ==
LOC: EC 19:53
DX: K80.20 Calculus of gallbladder without cholecystitis without obstruction (principal); R11.0 Nausea; F32.9 Major depressive disorder, single episode, unspecified; F17.200 Nicotine dependence, unspecified, uncomplicated; Z79.899 Other long term (current) drug therapy; Z88.2 Allergy status to sulfonamides; Z88.1 Allergy status to other antibiotic agents; Z87.442 Personal history of urinary calculi
CPT/HCPCS: 99284; 96374; 96375; 96376; 96361; 36415; 80053; 82150; 83690; 85025; 81001; 81025; 87086; 76705; J2405; J1170 ×2

== ENCOUNTER 2016-11-07 09:03 | Day surgery (SDC) | payer OTHER ==
[2016-11-04 15:59] VITALS: BMI 36.6
[~2016-11-07 09:03] MED LIST: DEXAMETHASONE SOD PHOSPHATE 10 MG/ML 1 ML VIAL IV ONE; HEPARIN SODIUM,PORCINE 5,000 UNIT/ML 1 ML VIAL SQ ONE; LACTATED RINGERS 1,000 ML IV SCH; MIDAZOLAM 2 MG/2 ML VIAL IV PRN; ONDANSETRON 4 MG/2 ML VIAL IVP ONE; ceFAZolin 2 GM in SODIUM CHLORIDE 0.9% 100 ML IVPB ONE
[2016-11-07] MEDS ORDERED: LIDOCAINE 1% 20 ML VIAL (10MG/ML) FOR IV START INTRADERMA ONE (09:55)
[2016-11-07] MEDS ORDERED: HYDROmorphone (PF) 1 MG/ML ONE (10:16)
[2016-11-07] MEDS ORDERED: fentaNYL (PF) 50 MCG/ML 2 ML AMP ONE (10:16)
[2016-11-07] MEDS ORDERED: SUCCINYLCHOLINE CHLORIDE 100 MG/5 ML SYR IV ONE (10:16)
[2016-11-07] MEDS ORDERED: KETOROLAC 30 MG/ML 1 ML VIAL ONE (10:16)
[2016-11-07] MEDS ORDERED: MEPERIDINE 50 MG/ML SYRINGE ONE (10:16)
[2016-11-07] MEDS ORDERED: LIDOCAINE 1% INJ 10MG/ML (20 ML MDV) ONE (10:16)
[2016-11-07] MEDS ORDERED: MIDAZOLAM 2 MG/2 ML VIAL ONE (10:16)
[2016-11-07] MEDS ORDERED: NEOSTIGMINE 1 MG/ML 10 ML VIAL ONE (10:16)
[2016-11-07] MEDS ORDERED: ROCURONIUM BROMIDE 10 MG/ML 10 ML VIAL IV ONE (10:16)
[2016-11-07] MEDS ORDERED: GLYCOPYRROLATE 0.2 MG/ML 2 ML VIAL ONE (10:16)
[2016-11-07] MEDS ORDERED: PROPOFOL 10 MG/ML 20 ML VIAL IV ONE (10:16)
[2016-11-07] MEDS ORDERED: diphenhydrAMINE 50 MG/ML 1 ML VIAL ONE (10:16)
[2016-11-07] MEDS ORDERED: BUPIVACAIN-EPI 0.25%-1:200,000 30 ML VIAL SQ ONE (10:37)
[2016-11-07 12:01] VITALS: TEMP 97
--- NOTE | 2016-11-07 12:03 | P.OP ---
Date of Procedure: 11/07/16 Preoperative Diagnosis: Chronic choelcystitis Postoperative Diagnosis: Chronic choelcystitis Procedure(s) Performed: Robot assisted laparoscopic choelcystectomy Implants: Anesthesia: ADAMA Surgeon: Ousmane Dao Estimated Blood Loss (ml): 5 Pathology: other Condition: stable Disposition: PACU Indications for Procedure: Pain in RUQ , food intolerance, cholithiaisis Operative Findings: CHronic inflammatory adhesions with the gall bladder Fatty liver with large left lobe of the live Description of Procedure: Patient is a 36-year-old female who presented with right upper quadrant pain and a clinical diagnosis of chronic cholecystitis was made. After appropriate informed consent and answering all the patient's questions patient taken the operating placement position and given general anesthesia with endotracheal intubation. After prepping and draping the patient in the usual sterile surgical fashion appropriate timeout was called. Left upper quadrant was identified and using the Optiview technique abdomen was entered and abdomen was insufflated to 15 mmHg. The camera was introduced was noted that the port itself was underneath the omentum and obscuring the view of the gallbladder was then withdrawn a bit blind omentum to fall down and giving including view of the gallbladder. Three 8 mm ports were then placed for the robot in the left upper quadrant and right upper quadrant. 12 mm port was placed supraumbilically and a 5 mm assist port was placed in the left lower quadrant. Once ports were then placed the patient was placed in appropriate position of left side down and reverse Trendelenburg. The robot was docked and Prograsp was taken in arm 3, cardiere in arm 2. Camera was through the 12 mm umbilical port site. And a hook cautery was taken in the arm 1. Gallbladder was retracted cephalad and superiorly. Inflammatory adhesions were taken down with the help of electrocautery. Appropriate critical view was obtained in cystic duct and artery were isolated. 2 clips proximally and 1 distally were plced in the artery and cystic duct and then and transected sharply with the help of scissors. The gallbladder was then taken off the gallbladder fossa with the help of electrocautery. Gallbladder was then placed in Endo Catch bag and removed through 12 port site after undocking the robot. Abdomen was then again visualized and completely irrigated and sucked dry. 12 mm port site was closed with the help of a Emerson Doll under direct laparoscopic view using 0 Vicryl. At this point the procedure was terminated and all ports were removed. Local anesthesia infiltrated into the incisions skin was closed with 4-0 Monocryl and Dermabond was applied. Patient is tolerated the porcedure well with no complications. She was extubated and taken to recovery room in stable condition.
[2016-11-07] MEDS: HYDROmorphone 1 MG/ML 1 ML SYRINGE IVP PRN ×2 (12:30→12:40)
[2016-11-07 13:42] VITALS: RESP 18
[2016-11-07] MEDS ORDERED: LACTATED RINGERS 1,000 ML IV ONE (13:55)
[2016-11-07 14:20] VITALS: BP 114/77; PULSE 53
== END 2016-11-07 14:56 | disposition home or self-care (01) ==
LOC: OR 09:03
PROVIDERS: ATTEND Surgery
DX: K80.10 Calculus of gallbladder with chronic cholecystitis without obstruction (principal); K82.8 Other specified diseases of gallbladder; K76.0 Fatty (change of) liver, not elsewhere classified; J45.909 Unspecified asthma, uncomplicated; E66.9 Obesity, unspecified; Z68.37 Body mass index [BMI] 37.0-37.9, adult; F17.200 Nicotine dependence, unspecified, uncomplicated; Z79.899 Other long term (current) drug therapy; Z88.1 Allergy status to other antibiotic agents; Z88.2 Allergy status to sulfonamides
CPT/HCPCS: 81025; 88304; 47562; J2250; J1200; J1644; J1100; J2710; J2175; J0690; J2405; J2001; J3010; J1885; J1170; J0330; J2704

== ENCOUNTER → 2017-02-04 | Outpatient (CLI) | payer OTHER ==
--- NOTE | 2017-02-04 12:46 | P.CNPUL ---
History of Present Illness Consult date: 02/04/17 Reason for consult: obstructive sleep apnea, other (insomnia) History of present illness: This is a pleasant 36-year-old female patient who is coming in to the sleep center with chief complaint of difficulties in falling sleep along with sleep fragmentation and frequent nocturnal arousals that has been affecting her quality of life. The patient tells that she had chronic problems with insomnia since the age of 17. Currently she is living with her boyfriend. She is working at [employer] in [place]. The patient goes to bed at around 1 AM and she gets out of bed at around 9 AM. Sometimes takes it up to 2 hours to fall asleep. She gets racing thoughts, worries a lot, yet stressed-out, thinks about her family, friends, work, financial issues and all this things with affect her ability to initiate sleep. After falling sleep, she wakes up frequently and the exact reason for that is unknown. Her boyfriend who sleeps in the same room tells me that she snores and at times she quits breathing. The patient gets to work at around 9 AM and she works still 5 PM. She feels very fatigued. She does not fall asleep however. She doesn't fall asleep was driving a car. She has never fall asleep while talking to somebody. She has no nocturia. No grinding of the teeth. No sleepwalking or sleep talking. She has chronic depression for which she was given Zoloft and she's been taken 100 mg of Zoloft for the past several years. She has tried various sleep medications [id number] without much help. No panic attack. No palpitations. No nocturnal heartburn. She was suspected to have some restless leg syndrome for which she was started on Requip by her primary care physician. Her weight has been stable over the past 1 year however she has gained more than 35-40 pounds over the past 5 years. She drinks 3 cans of Coke throughout the day and sometimes more. She smokes cigarettes. No substance abuse. No alcoholism. No head trauma. Her current [place] scores of 0. No body aches. No respiratory distress. No seizure activity. Review of Systems A 12 point review of system was done and the positive findings are almost above in history of present illness Constitutional: Reports fatigue, Reports weight gain Eyes: denies blurred vision, denies bulging eye, denies decreased vision Ears: deny: decreased hearing, ear discharge, earache Ears, nose, mouth and throat: Denies headache, Denies sore throat Cardiovascular: Denies chest pain, Denies shortness of breath Respiratory: Denies cough Gastrointestinal: Denies abdominal pain, Denies diarrhea, Denies nausea, Denies vomiting Genitourinary: Denies dysuria, Denies hematuria Musculoskeletal: Denies myalgias Musculoskeletal: absent: ankle pain, ankle stiffness, ankle swelling Neurological: Denies numbness, Denies weakness Psychiatric: Reports anxiety, Reports sleep disturbances Past Medical History Additional Past Medical History / Comment(s): Depression, history of nephrolithiasis, obesity, questionable restlessness in the lower extremities History of Any Multi-Drug Resistant Organisms: None Reported Past Surgical History: Section, Orthopedic Surgery, Tonsillectomy, Tubal Ligation Additional Past Surgical History / Comment(s): LEFT KNEE ARTHROSCOPY, CYSTOSCOPE , LITHOTRIPSY Past Anesthesia/Blood Transfusion Reactions: Postoperative Nausea & Vomiting ( PONV) Smoking Status: Current every day smoker - Past Family History Mother Family Medical History: No Reported History Medications and Allergies Home Medications Medication Instructions Recorded Confirmed Type Sertraline [Zoloft] 50 mg PO HS 08/21/16 11/07/16 History rOPINIRole HCL [Requip] 0.25 mg PO HS 10/18/16 11/07/16 History Hydrocodone/Acetaminophen [[place] 1 each PO Q4H PRN #15 tablet 11/07/16 Rx 5-325 Tablet] Ondansetron Odt [Zofran Odt] 8 mg PO Q12HR PRN #5 tab 11/07/16 Rx Allergies Allergy/AdvReac Type Severity Reaction Status Date / Time erythromycin base Allergy Rash/Hives Verified 11/07/16 09:37 sulfamethoxazole Allergy Rash/Hives Verified 11/07/16 09:37 [From Bactrim] trimethoprim [From Bactrim] Allergy Rash/Hives Verified 11/07/16 09:37 Physical Exam Vitals: Left pressure is 118/76, pulse is 49, respirations 16, temperature 97.7, saturation 96% on room air, weight is 240, height is 65 inches, Neck 16 inches, [place] score is 0 and BMI 39.9. Head exam was generally normal. There was no scleral icterus or corneal arcus. Mucous membranes were moist. Neck is short and supple and the patient has a Mallampati class IV and there is no goiter or neck masses.Lungs were clear to auscultation and percussion, and with normal diaphragmatic excursion. No wheezes or rales were noted. Cardiac exam revealed the PMI to be normally situated and sized. The rhythm was regular and no extrasystoles were noted during several minutes of auscultation. The first and second heart sounds were normal and physiologic splitting of the second heart sound was noted. There were no murmurs, rubs, clicks, or gallops.Abdominal exam revealed normal bowel sounds. The abdomen was soft, non-tender, and without masses, organomegaly, or appreciable enlargement of the abdominal aorta.Examination of the extremities revealed easily palpable radial, femoral and pedal pulses. There was no cyanosis , clubbing or edema. Assessment and Plan Plan: Assessment 1 excessive daytime fatigue with limited sleepiness 2 chronic insomnia with difficulties in sleep induction and maintenance. This seems to be a chronic chronic problem, partly related to poor sleep hygiene measures and partly related to chronic anxiety/depression. At the same time, the possibility of sleep apnea needs to be entertained knowing that the patient has the typical anatomic features and sleep apnea could be potentially exacerbating this patient's chronic insomnia. 3 obesity BMI of 39.9 4 depression maintained on Zoloft Plan We will encourage weight loss. We will encourage improving sleep hygiene measures and this has been explained at length to the patient. Obviously caffeine drinking in any form needs to be eliminated. The patient is to go to bed at scheduled times awake up at the scheduled time and she needs to the greater sleep-wake cycle. To help her with sleep induction, I gave her a trial of Xanax 1 mg to be taken at bedtime and this should help her elevated anxiety and promote sleep. We'll try to avoid any hypnotic agents for now. Continue Zoloft. Sleep study at a later stage was the patient is able to initiate sleep more effectively. We'll continue to follow. I already scheduled this patient underwent sleep study and April. Meanwhile she'll see him back in a month time to discuss the results and the response to Xanax at bedtime along with the conservative measures that were given to help with her sleep quality.
== END ==
LOC: SLEEP 10:44
PROVIDERS: ATTEND Internal Medicine Critical Care Medicine
DX: G47.00 Insomnia, unspecified (principal); G47.10 Hypersomnia, unspecified; E66.9 Obesity, unspecified; F32.9 Major depressive disorder, single episode, unspecified; F17.200 Nicotine dependence, unspecified, uncomplicated; Z68.39 Body mass index [BMI] 39.0-39.9, adult; Z79.899 Other long term (current) drug therapy; Z88.1 Allergy status to other antibiotic agents; Z88.2 Allergy status to sulfonamides
CPT/HCPCS: 99211

== ENCOUNTER 2017-03-06 17:31 | Emergency (ER) | payer OTHER ==
[2017-03-06 17:42] VITALS: TEMP 97.9
[2017-03-06] MEDS ORDERED: ONDANSETRON 4 MG/2 ML VIAL IVP STA (17:51)
[2017-03-06] MEDS ORDERED: SODIUM CHLORIDE 0.9% 1,000 ML IV STA ×2 (17:51)
[2017-03-06] MEDS ORDERED: KETOROLAC 30 MG/ML 1 ML VIAL IVP STA (17:51)
--- NOTE | 2017-03-06 17:57 | ED ---
Abdominal Pain HPI - General Chief Complaint: Abdominal Pain Stated Complaint: Abd Pain Time Seen by Provider: 03/06/17 17:43 Source: patient, RN notes reviewed, old records reviewed Mode of arrival: ambulatory Limitations: no limitations - History of Present Illness Initial Comments: This is a 36-year-old female presents emergency Department chief complaint of abdominal pain of the right lower quadrant abdominal pain for the past 3 days. Patient reports it started in the umbilicus patient started to radiate towards the right side towards her back as well. She has a history of kidney stones. She states this pain feels somewhat different to her kidney stone pain. Patient states that she's had no blood in her urine. Denies any dysuria. She states she's had diarrhea but she reports that that is been frequent since her gallbladder removed 3 months ago. Patient states she's had chills but denies any fever. - Related Data Home Medications Medication Instructions Recorded Confirmed Sertraline [Zoloft] 50 mg PO HS 08/21/16 03/06/17 ALPRAZolam [Xanax] 1 mg PO HS 03/06/17 03/06/17 Ibuprofen [Motrin] 1,200 mg PO DAILY PRN 03/06/17 03/06/17 rOPINIRole HCL [Requip] 0.5 mg PO HS 03/06/17 03/06/17 Previous Rx's Medication Instructions Recorded Ciprofloxacin HCl [Cipro] 500 mg PO Q12HR 10 Days 03/06/17 HYDROcodone/APAP 5-325MG [[place] 1 tab PO Q6HR PRN #10 tab 03/06/17 5-325] metroNIDAZOLE [Flagyl] 500 mg PO TID #10 tab 03/06/17 Allergies Allergy/AdvReac Type Severity Reaction Status Date / Time erythromycin base Allergy Rash/Hives Verified 03/06/17 18:54 sulfamethoxazole Allergy Rash/Hives Verified 03/06/17 18:54 [From Bactrim] trimethoprim [From Bactrim] Allergy Rash/Hives Verified 03/06/17 18:54 Review of Systems ROS Statement: Those systems with pertinent positive or pertinent negative responses have been documented in the HPI. ROS Other: All systems not noted in ROS Statement are negative. Past Medical History Additional Past Medical History / Comment(s): Depression, history of nephrolithiasis, obesity, questionable restlessness in the lower extremities History of Any Multi-Drug Resistant Organisms: None Reported Past Surgical History: Section, Orthopedic Surgery, Tonsillectomy, Tubal Ligation Additional Past Surgical History / Comment(s): LEFT KNEE ARTHROSCOPY, CYSTOSCOPE , LITHOTRIPSY Past Anesthesia/Blood Transfusion Reactions: Postoperative Nausea & Vomiting ( PONV) Past Psychological History: Anxiety, Depression Smoking Status: Current every day smoker Past Alcohol Use History: None Reported Past Drug Use History: Marijuana - Past Family History Mother Family Medical History: No Reported History General Exam - General Exam Comments Initial Comments: This is a 36-year-old female. No acute distress. Limitations: no limitations General appearance: alert, in no apparent distress Head exam: Present: atraumatic, normocephalic, normal inspection Eye exam: Present: normal appearance, PERRL, EOMI. Absent: scleral icterus, conjunctival injection, periorbital swelling ENT exam: Present: normal exam, mucous membranes moist Neck exam: Present: normal inspection. Absent: tenderness, meningismus, lymphadenopathy Respiratory exam: Present: normal lung sounds bilaterally. Absent: respiratory distress, wheezes, rales, rhonchi, stridor Cardiovascular Exam: Present: regular rate, normal rhythm, normal heart sounds. Absent: systolic murmur, diastolic murmur, rubs, gallop, clicks GI/Abdominal exam: Present: soft, tenderness (RLQ tenderness ), normal bowel sounds. Absent: distended, rebound, rigid Extremities exam: Present: normal inspection, full ROM, normal capillary refill. Absent: tenderness, pedal edema, joint swelling, calf tenderness Back exam: Present: normal inspection Neurological exam: Present: alert, oriented X3, CN II-XII intact Psychiatric exam: Present: normal affect, normal mood Skin exam: Present: warm, dry, intact, normal color. Absent: rash Course Vital Signs 03/06/17 03/06/17 17:39 19:00 Temperature 97.9 F Pulse Rate 62 48 L Respiratory 18 20 Rate Blood Pressure 120/82 131/79 O2 Sat by Pulse 97 97 Oximetry - Reevaluation(s) Reevaluation #1: 03/06/17 18:48 Patient is reevaluated this time. She reports that she still having some right lower quadrant abdominal pain. Discussed that although it is appearing relatively normal since a few red blood cells at this time. Patient continues to complain of some right lower quadrant tenderness. CT abdomen and pelvis addresses ordered with contrast to CARINA zavala Medical Decision Making - Medical Decision Making Review a chief complaint of 3 days of abdominal pain rating from her umbilicus towards her right lower quadrant. Patient reports she's had no nausea or vomiting. No changes in bowel movements besides diarrhea. Reported diarrhea has been chronic since she had her call her removed 3 months ago. This time patient is rolled over in pain. Patient was given IV fluids lab work obtained. Patient's labwork was reviewed and unremarkable. She still complaining significant tenderness. CT abdomen and pelvis with contrast performed. There is evidence of colitis. Patient will be started on Cipro and Flagyl. Discussed that she needs to follow-up with a GI specialist. Discussed return to emergency department if any alarming signs or symptoms occur. Patient understands treatment plan will comply. - Lab Data Result diagrams: 03/06/17 18:11 03/06/17 18:11 Lab Results 03/06/17 03/06/17 03/06/17 Range/Units 18:11 18:11 18:11 WBC 9.0 (3.8-10.6) k/uL RBC 4.73 (3.80-5.40) m/uL Hgb 14.0 (11.4-16.0) gm/dL Hct 43.3 (34.0-46.0) % MCV 91.6 (80.0-100.0) fL MCH 29.7 (25.0-35.0) pg MCHC 32.4 (31.0-37.0) g/dL RDW 13.7 (11.5-15.5) % Plt Count 242 (150-450) k/uL Neutrophils % 56 % Lymphocytes % 34 % Monocytes % 7 % Eosinophils % 2 % Basophils % 1 % Neutrophils # 5.0 (1.3-7.7) k/uL Lymphocytes # 3.1 (1.0-4.8) k/uL Monocytes # 0.6 (0-1.0) k/uL Eosinophils # 0.2 (0-0.7) k/uL Basophils # 0.1 (0-0.2) k/uL PT 10.4 (9.0-12.0) sec INR 1.0 (<1.2) APTT 23.3 (22.0-30.0) sec Sodium 141 (137-145) mmol/L Potassium 3.9 (3.5-5.1) mmol/L Chloride 110 H (98-107) mmol/L Carbon Dioxide 20 L (22-30) mmol/L Anion Gap 11 mmol/L BUN 9 (7-17) mg/dL Creatinine 0.70 (0.52-1.04) mg/dL Est GFR (MDRD) Af Amer >60 (>60 ml/min/1.73 sqM) Est GFR (MDRD) Non-Af >60 (>60 ml/min/1.73 sqM) Glucose 104 H (74-99) mg/dL Calcium 9.1 (8.4-10.2) mg/dL Total Bilirubin 0.4 (0.2-1.3) mg/dL AST 24 (14-36) U/L ALT 36 (9-52) U/L Alkaline Phosphatase 58 (38-126) U/L Total Protein 6.8 (6.3-8.2) g/dL Albumin 3.9 (3.5-5.0) g/dL Amylase 53 (30-110) U/L Lipase 72 (23-300) U/L Urine Color Urine Appearance (Clear) Urine pH (5.0-8.0) Ur Specific [place] (1.001-1.035) Urine Protein (Negative) Urine Glucose (UA) (Negative) Urine Ketones (Negative) Urine Blood (Negative) Urine Nitrite (Negative) Urine Bilirubin (Negative) Urine Urobilinogen (<2.0) mg/dL Ur Leukocyte Esterase (Negative) Urine RBC (0-5) /hpf Urine WBC (0-5) /hpf Ur Squamous Epith Cells (0-4) /hpf Urine Bacteria (None) /hpf Urine Mucus (None) /hpf Urine Yeast (Budding) (None) /hpf Urine HCG, Qual (Not Detectd) 03/06/17 03/06/17 Range/Units 18:20 18:20 WBC (3.8-10.6) k/uL RBC (3.80-5.40) m/uL Hgb (11.4-16.0) gm/dL Hct (34.0-46.0) % MCV (80.0-100.0) fL MCH (25.0-35.0) pg MCHC (31.0-37.0) g/dL RDW (11.5-15.5) % Plt Count (150-450) k/uL Neutrophils % % Lymphocytes % % Monocytes % % Eosinophils % % Basophils % % Neutrophils # (1.3-7.7) k/uL Lymphocytes # (1.0-4.8) k/uL Monocytes # (0-1.0) k/uL Eosinophils # (0-0.7) k/uL Basophils # (0-0.2) k/uL PT (9.0-12.0) sec INR (<1.2) APTT (22.0-30.0) sec Sodium (137-145) mmol/L Potassium (3.5-5.1) mmol/L Chloride (98-107) mmol/L Carbon Dioxide (22-30) mmol/L Anion Gap mmol/L BUN (7-17) mg/dL Creatinine (0.52-1.04) mg/dL Est GFR (MDRD) Af Amer (>60 ml/min/1.73 sqM) Est GFR (MDRD) Non-Af (>60 ml/min/1.73 sqM) Glucose (74-99) mg/dL Calcium (8.4-10.2) mg/dL Total Bilirubin (0.2-1.3) mg/dL AST (14-36) U/L ALT (9-52) U/L Alkaline Phosphatase (38-126) U/L Total Protein (6.3-8.2) g/dL Albumin (3.5-5.0) g/dL Amylase (30-110) U/L Lipase (23-300) U/L Urine Color Yellow Urine Appearance Cloudy H (Clear) Urine pH 5.5 (5.0-8.0) Ur Specific [place] 1.020 (1.001-1.035) Urine Protein Trace H (Negative) Urine Glucose (UA) Negative (Negative) Urine Ketones Negative (Negative) Urine Blood Negative (Negative) Urine Nitrite Negative (Negative) Urine Bilirubin Negative (Negative) Urine Urobilinogen <2.0 (<2.0) mg/dL Ur Leukocyte Esterase Large H (Negative) Urine RBC 7 H (0-5) /hpf Urine WBC 5 (0-5) /hpf Ur Squamous Epith Cells 8 H (0-4) /hpf Urine Bacteria Occasional H (None) /hpf Urine Mucus Rare H (None) /hpf Urine Yeast (Budding) Occasional H (None) /hpf Urine HCG, Qual Not Detected (Not Detectd) - Radiology Data Radiology results: report reviewed Thickening of the left side of the colon please correlate for colitis. Nonvisualization of the next. There is no pericecal inflammatory change. Tiny nonobstructing left renal Cyst. Family. Simple appearing left renal cyst. Disposition Clinical Impression: Colitis Disposition: HOME SELF-CARE Condition: Good Instructions: Colitis (ED) Additional Instructions: Patient is to rest, increase fluids. Complete her antibiotic prescription. Follow-up with her primary care provider within the next 1-2 days. Return to the emergency department if any alarming signs or symptoms occur. Prescriptions: Ciprofloxacin HCl [Cipro] 500 mg PO Q12HR 10 Days HYDROcodone/APAP 5-325MG [[place] 5-325] 1 tab PO Q6HR PRN #10 tab PRN Reason: Pain metroNIDAZOLE [Flagyl] 500 mg PO TID #10 tab Referrals: Shawna Biswas MD [Primary Care Provider] - 1-2 days Time of Disposition: 19:49
[2017-03-06] MEDS ORDERED: DICYCLOMINE 10 MG/ML 2 ML AMP IM STA (18:09)
[2017-03-06 18:24] LABS: Basophils # (A) 0.1 k/uL (0-0.2); Basophils % (A) 1 %; Eosinophils # (A) 0.2 k/uL (0-0.7); Eosinophils % (A) 2 %; HCT 43.3 % (34.0-46.0); HDW 2.38; Luc # (Auto) 0.09; Luc % (Auto) 1; Lymphocytes # (A) 3.1 k/uL (1.0-4.8); Lymphocytes % (A) 34 %; MCH 29.7 pg (25.0-35.0); MCHC 32.4 g/dL (31.0-37.0); MCV 91.6 fL (80.0-100.0); Mean Platelet Volume 7.6; Monocytes # (A) 0.6 k/uL (0-1.0); Monocytes % (A) 7 %; Neutrophils % (A) 56 %; RBC 4.73 m/uL (3.80-5.40); RDW 13.7 % (11.5-15.5); WBC (Perox) 8.95
[2017-03-06 18:32] LABS: Partial Thromboplastin Time 23.3 sec (22.0-30.0); Prothrombin Time 10.4 sec (9.0-12.0)
[2017-03-06 18:36] LABS: ALT 36 U/L (9-52); AST 24 U/L (14-36); Alkaline Phosphatase 58 U/L (38-126); Amylase 53 U/L (30-110); Anion Gap 11 mmol/L; Blood Urea Nitrogen 9 mg/dL (7-17); Calcium 9.1 mg/dL (8.4-10.2); Carbon Dioxide 20 mmol/L (22-30); Chloride 110 mmol/L (98-107); Glucose 104 mg/dL (74-99); Non-African American GFR(MDRD) >60 (>60 ml/min/1.73 sqM); Potassium 3.9 mmol/L (3.5-5.1); Sodium 141 mmol/L (137-145); Total Bilirubin 0.4 mg/dL (0.2-1.3); Total Protein 6.8 g/dL (6.3-8.2)
[2017-03-06] MEDS ORDERED: RX INFO: IV CONTRAST WAS GIVEN 1 EACH MISC MISCELLANE PRN (18:41)
[2017-03-06 18:46] LABS: Appearance,Urine Cloudy (Clear); Bacteria,Urine Occasional /hpf; Bilirubin,Urine Negative (Negative); Glucose,Urine (UA) Negative (Negative); Ketones,Urine Negative (Negative); Leukocyte Esterase,Urine Large (Negative); Mucus,Urine Rare /hpf; Nitrite,Urine Negative (Negative); PH, Urine 5.5 (5.0-8.0); Particle Count 16646; Protein,Urine Trace (Negative); RBC,Urine 7 /hpf (0-5); Squamous Epithelial Cell,Urine 8 /hpf (0-4); UA Billing (MACRO vs. MICRO) MICRO; Urobilinogen,Urine <2.0 mg/dL (<2.0); WBC,Urine 5 /hpf (0-5)
[2017-03-06] MEDS ORDERED: MORPHINE SULFATE 4 MG/ML SYRINGE IVP STA (18:48)
[2017-03-06 19:18] VITALS: BP 131/79
--- NOTE | 2017-03-06 19:25 | CT ---
EXAMINATION TYPE: CT abdomen pelvis w con DATE OF EXAM: 03/06/2017 REFERENCE: Previous study dated 10/13/2016 HISTORY: RLQ pain HISTORY: RLQ pain with chills and nausea for 3 days. REFERENCE: NONE CT DLP: 1731.6 mGy Automated exposure control for dose reduction was used. TECHNIQUE: Helical acquisition through the abdomen and pelvis was obtained following the oral ingesti on of without Oral Contrast and following intravenous administration of 100 mL of Omnipaque 300. The data was reformatted in axial, coronal and sagittal projections. FINDINGS: Visualized portions of the lungs are clear. There is no pleural or pericardial fluid. The heart is upper limits of normal in size. Within the abdomen, the liver is enlarged measuring 20 cm. The spleen is unremarkable. The gallbladde r is not identified. Both adrenal glands are normal. There is a 1 to 2 mm, nonobstructing calculus in the anterior middle pole calyx of the left kidney. T here is a simple appearing 8.1 mm cyst in the mid polar region of the left kidney. The right kidney i s unremarkable. The pancreas is unremarkable. There is no significant retroperitoneal, iliac or inguinal adenopathy. The bladder is not distended. The uterus and ovaries appear normal. There is mucosal thickening throughout the left side of the colon. The appendix is not visualized. Th ere is no pericecal inflammatory change. There is no free fluid and no free air. No bony destructive lesion is seen. IMPRESSION: 1. THICKENING OF THE LEFT SIDE OF THE COLON. PLEASE CORRELATE FOR COLITIS. 2. NONVISUALIZATION OF THE APPENDIX. THERE IS NO PERICECAL INFLAMMATORY CHANGE. 3. TINY, NONOBSTRUCTING LEFT RENAL CALCULUS. 4. HEPATOMEGALY. 5. SIMPLE APPEARING LEFT RENAL CYST.
[2017-03-06] MEDS ORDERED: CIPROFLOXACIN HCL 500 MG TAB PO STA (19:51)
[2017-03-06] MEDS ORDERED: metroNIDAZOLE 500 MG TAB PO STA (19:51)
[2017-03-06 20:17] VITALS: PULSE 64; RESP 16
[2017-03-06] MEDS ORDERED: ACET/COD 300 MG/30 MG STARTER PACK 6 TAB BTL PO STA (20:17)
== END 2017-03-06 20:25 | disposition home or self-care (01) ==
LOC: EC 17:31
DX: K52.9 Noninfective gastroenteritis and colitis, unspecified (principal); N28.1 Cyst of kidney, acquired; M54.9 Dorsalgia, unspecified; F32.9 Major depressive disorder, single episode, unspecified; F41.9 Anxiety disorder, unspecified; E66.9 Obesity, unspecified; F17.200 Nicotine dependence, unspecified, uncomplicated; Z79.899 Other long term (current) drug therapy; Z88.1 Allergy status to other antibiotic agents; Z90.49 Acquired absence of other specified parts of digestive tract; Z68.35 Body mass index [BMI] 35.0-35.9, adult
CPT/HCPCS: 99285 ×2; 96374 ×2; 96375 ×3; 96361 ×3; 96372 ×2; 36415; 80053; 82150; 83690; 85025; 85610; 85730; 81001; 81025; 74177; J2270; J0500; J2405; J1885; Q9967

== ENCOUNTER 2017-03-07 17:17 | Emergency (ER) | payer OTHER ==
[2017-03-07] MEDS ORDERED: ONDANSETRON 4 MG/2 ML VIAL IVP STA ×2 (18:14→20:42)
[2017-03-07] MEDS ORDERED: DICYCLOMINE 10 MG/ML 2 ML AMP IM STA (18:14)
[2017-03-07] MEDS ORDERED: SODIUM CHLORIDE 0.9% 1,000 ML IV STA (18:14)
[2017-03-07] MEDS ORDERED: FAMOTIDINE 20 MG/2 ML VIAL IV STA (18:15)
--- NOTE | 2017-03-07 18:22 | ED ---
General Adult HPI - General Chief complaint: Abdominal Pain Stated complaint: colitis/pain Time Seen by Provider: 03/07/17 17:55 Source: patient, RN notes reviewed Mode of arrival: ambulatory Limitations: no limitations - History of Present Illness Initial comments: 36 yo female presents to the ER with abdominal pain. Patient states she was seen here last and diagnosed with colitis and was told if her pain got worse return. Patient states she is continuing to have the cramping than she had nausea vomiting she was concerned. Patient does admit to history of a cholecystectomy. Patient denies increased urination. Patient states that her abdominal pain does seem to worsen so she thought that she should be reevaluated. Patient states that she is not currently having any other symptoms at this time. Patient denies any significant health history. Patient denies any significant history of this similar episode. Patient denies any recent fever, chills, shortness of breath, chest pain, back pain, numbness or tingling, dysuria or hematuria, constipation or diarrhea, headaches or visual changes, or any other current symptoms. - Related Data Home Medications Medication Instructions Recorded Confirmed Sertraline [Zoloft] 50 mg PO HS 08/21/16 03/07/17 ALPRAZolam [Xanax] 1 mg PO HS 03/06/17 03/07/17 Ibuprofen [Motrin] 1,200 mg PO DAILY PRN 03/06/17 03/07/17 rOPINIRole HCL [Requip] 0.5 mg PO HS 03/06/17 03/07/17 Previous Rx's Medication Instructions Recorded Ciprofloxacin HCl [Cipro] 500 mg PO Q12HR 10 Days 03/06/17 HYDROcodone/APAP 5-325MG [[place] 1 tab PO Q6HR PRN #10 tab 03/06/17 5-325] metroNIDAZOLE [Flagyl] 500 mg PO TID #10 tab 03/06/17 Allergies Allergy/AdvReac Type Severity Reaction Status Date / Time erythromycin base Allergy Rash/Hives Verified 03/07/17 19:07 sulfamethoxazole Allergy Rash/Hives Verified 03/07/17 19:07 [From Bactrim] trimethoprim [From Bactrim] Allergy Rash/Hives Verified 03/07/17 19:07 Review of Systems ROS Statement: Those systems with pertinent positive or pertinent negative responses have been documented in the HPI. ROS Other: All systems not noted in ROS Statement are negative. Past Medical History Additional Past Medical History / Comment(s): Depression, history of nephrolithiasis, obesity, questionable restlessness in the lower extremities History of Any Multi-Drug Resistant Organisms: None Reported Past Surgical History: Section, Orthopedic Surgery, Tonsillectomy, Tubal Ligation Additional Past Surgical History / Comment(s): LEFT KNEE ARTHROSCOPY, CYSTOSCOPE , LITHOTRIPSY Past Anesthesia/Blood Transfusion Reactions: Postoperative Nausea & Vomiting ( PONV) Past Psychological History: Anxiety, Depression Smoking Status: Current every day smoker Past Alcohol Use History: None Reported Past Drug Use History: Marijuana - Past Family History Mother Family Medical History: No Reported History General Exam - General Exam Comments Initial Comments: General: The patient is awake and alert, in no distress, and does not appear acutely ill. Eye: Pupils are equal, round and reactive to light, extra-ocular movements are intact; there is normal conjunctiva bilaterally. No signs of icterus. Ears, nose, mouth and throat: There are moist mucous membranes and no oral lesions. Neck: The neck is supple, there is no tenderness. Cardiovascular: There is a regular rate and rhythm. No murmur, rub or gallop is appreciated. Respiratory: Lungs are clear to auscultation, respirations are non-labored, breath sounds are equal. No wheezes, stridor, rales, or rhonchi. Gastrointestinal: Soft, non-distended, non-tender abdomen without masses or organomegaly noted. There is no rebound or guarding present. No CVA tenderness. Bowel sounds are unremarkable. Back: There is no tenderness to palpation in the midline. There is no obvious deformity. No rashes noted. Musculoskeletal: Normal ROM, no tenderness, There is no pedal edema. There is no calf tenderness or swelling. Sensation intact. Pulses equal bilaterally 2+. Neurological: CN II-XII intact, There are no obvious motor or sensory deficits. Coordination appears grossly intact. Speech is normal. Skin: Skin is warm and dry and no rashes or lesions are noted. Psychiatric: Cooperative, appropriate mood & affect, normal judgment. Limitations: no limitations Course Vital Signs 03/07/17 03/07/17 17:48 19:57 Temperature 97 F L Pulse Rate 55 L 82 Respiratory 18 16 Rate Blood Pressure 127/86 128/79 O2 Sat by Pulse 100 99 Oximetry Medical Decision Making - Medical Decision Making 36-year-old female presents with chief complaint abdominal pain. At this time patient's liver enzymes were mildly elevated ultrasound of the liver does show an enlarged liver. At this time, stable vital signs are stable. The patient does appear to be UTI however she is early on Cipro but she is only taken 1 dose thus far. This and we discussed custodial. We discussed follow-up return parameters. Patient stated she understood her pain has improved. She will be discharged. - Lab Data Result diagrams: 03/07/17 18:30 03/07/17 18:30 Lab Results 03/07/17 03/07/17 03/07/17 Range/Units 18:30 18:30 18:30 WBC 6.9 (3.8-10.6) k/uL RBC 4.83 (3.80-5.40) m/uL Hgb 14.6 (11.4-16.0) gm/dL Hct 44.7 (34.0-46.0) % MCV 92.5 (80.0-100.0) fL MCH 30.1 (25.0-35.0) pg MCHC 32.5 (31.0-37.0) g/dL RDW 12.9 (11.5-15.5) % Plt Count 218 (150-450) k/uL Neutrophils % 66 % Lymphocytes % 25 % Monocytes % 6 % Eosinophils % 2 % Basophils % 0 % Neutrophils # 4.5 (1.3-7.7) k/uL Lymphocytes # 1.7 (1.0-4.8) k/uL Monocytes # 0.4 (0-1.0) k/uL Eosinophils # 0.1 (0-0.7) k/uL Basophils # 0.0 (0-0.2) k/uL Sodium 139 (137-145) mmol/L Potassium 4.3 (3.5-5.1) mmol/L Chloride 108 H (98-107) mmol/L Carbon Dioxide 23 (22-30) mmol/L Anion Gap 8 mmol/L BUN 6 L (7-17) mg/dL Creatinine 0.70 (0.52-1.04) mg/dL Est GFR (MDRD) Af Amer >60 (>60 ml/min/1.73 sqM) Est GFR (MDRD) Non-Af >60 (>60 ml/min/1.73 sqM) Glucose 81 (74-99) mg/dL Calcium 8.7 (8.4-10.2) mg/dL Total Bilirubin 0.6 (0.2-1.3) mg/dL AST 142 H (14-36) U/L ALT 220 H (9-52) U/L Alkaline Phosphatase 90 (38-126) U/L Total Protein 6.6 (6.3-8.2) g/dL Albumin 3.9 (3.5-5.0) g/dL Amylase 42 (30-110) U/L Lipase 72 (23-300) U/L Urine Color Yellow Urine Appearance Cloudy H (Clear) Urine pH 5.5 (5.0-8.0) Ur Specific [place] 1.014 (1.001-1.035) Urine Protein Negative (Negative) Urine Glucose (UA) Negative (Negative) Urine Ketones Trace H (Negative) Urine Blood Negative (Negative) Urine Nitrite Negative (Negative) Urine Bilirubin Negative (Negative) Urine Urobilinogen <2.0 (<2.0) mg/dL Ur Leukocyte Esterase Large H (Negative) Urine RBC 4 (0-5) /hpf Urine WBC 10 H (0-5) /hpf Ur Squamous Epith Cells 13 H (0-4) /hpf Urine Bacteria Rare H (None) /hpf Urine Mucus Rare H (None) /hpf Disposition Clinical Impression: Abdominal pain, Elevated liver enzymes Disposition: HOME SELF-CARE Condition: Stable Instructions: Abdominal Pain (ED) Additional Instructions: Please use medication as discussed. Please follow up with family doctor if symptoms have not improved over the next two days. Please return to the emergency room if your symptoms increase or worsen or for any other concerns. Referrals: Shawna Biswas MD [Primary Care Provider] - 1-2 days Time of Disposition: 20:00
[2017-03-07 18:48] LABS: Basophils % (A) 0 %; CH 30.1; CHCM 32.6; Eosinophils # (A) 0.1 k/uL (0-0.7); Eosinophils % (A) 2 %; HCT 44.7 % (34.0-46.0); HDW 2.37; HGB 14.6 gm/dL (11.4-16.0); Luc # (Auto) 0.09; Luc % (Auto) 1; Lymphocytes # (A) 1.7 k/uL (1.0-4.8); Lymphocytes % (A) 25 %; MCH 30.1 pg (25.0-35.0); MCHC 32.5 g/dL (31.0-37.0); MCV 92.5 fL (80.0-100.0); Mean Platelet Volume 7.5; Monocytes # (A) 0.4 k/uL (0-1.0); Monocytes % (A) 6 %; Neutrophils # (A) 4.5 k/uL (1.3-7.7); Neutrophils % (A) 66 %; RBC 4.83 m/uL (3.80-5.40); RDW 12.9 % (11.5-15.5); WBC 6.9 k/uL (3.8-10.6); WBC (Perox) 6.91
[2017-03-07 18:50] LABS: Appearance,Urine Cloudy (Clear); Bacteria,Urine Rare /hpf; Bilirubin,Urine Negative (Negative); Glucose,Urine (UA) Negative (Negative); Ketones,Urine Trace (Negative); Leukocyte Esterase,Urine Large (Negative); Mucus,Urine Rare /hpf; Nitrite,Urine Negative (Negative); PH, Urine 5.5 (5.0-8.0); Particle Count 5852; Protein,Urine Negative (Negative); RBC,Urine 4 /hpf (0-5); Specific Gravity,Urine 1.014 (1.001-1.035); Squamous Epithelial Cell,Urine 13 /hpf (0-4); UA Billing (MACRO vs. MICRO) MICRO; Urobilinogen,Urine <2.0 mg/dL (<2.0); WBC,Urine 10 /hpf (0-5)
[2017-03-07 19:06] LABS: ALT 220 U/L (9-52); AST 142 U/L (14-36); Alkaline Phosphatase 90 U/L (38-126); Amylase 42 U/L (30-110); Anion Gap 8 mmol/L; Blood Urea Nitrogen 6 mg/dL (7-17); Calcium 8.7 mg/dL (8.4-10.2); Carbon Dioxide 23 mmol/L (22-30); Chloride 108 mmol/L (98-107); Glucose 81 mg/dL (74-99); Non-African American GFR(MDRD) >60 (>60 ml/min/1.73 sqM); Potassium 4.3 mmol/L (3.5-5.1); Sodium 139 mmol/L (137-145); Total Bilirubin 0.6 mg/dL (0.2-1.3); Total Protein 6.6 g/dL (6.3-8.2)
[2017-03-07] MEDS ORDERED: HYDROmorphone 1 MG/ML 1 ML SYRINGE IVP STA ×2 (19:14→20:00)
--- NOTE | 2017-03-07 19:50 | US ---
EXAMINATION TYPE: US abdomen limited DATE OF EXAM: 03/07/2017 COMPARISON: CLINICAL HISTORY: RUQ . ML lower pain, GB removed 3 months ago EXAM MEASUREMENTS: Liver Length: 19.1 cm CBD: 0.7 cm Right Kidney: 10.9 x 5.0 x 4.6 cm Pancreas: Appears slightly hyperechoic, Tail obscured by overlying bowel gas Liver: enlarged Gallbladder: Surgically absent Evidence for sonographic Bhatt's sign: neg CHD: wnl Right Kidney: wnl IMPRESSION: Cholecystectomy. No dilated ducts.
[2017-03-07 19:57] VITALS: RESP 16
[2017-03-07 20:50] VITALS: BP 125/70; PULSE 68; TEMP 98.1
== END 2017-03-07 20:49 | disposition home or self-care (01) ==
LOC: EC 17:17
DX: R94.5 Abnormal results of liver function studies (principal); R10.9 Unspecified abdominal pain; F32.9 Major depressive disorder, single episode, unspecified; F41.9 Anxiety disorder, unspecified; F17.200 Nicotine dependence, unspecified, uncomplicated; E66.9 Obesity, unspecified; Z68.35 Body mass index [BMI] 35.0-35.9, adult; Z98.51 Tubal ligation status; Z90.49 Acquired absence of other specified parts of digestive tract; Z79.899 Other long term (current) drug therapy; Z88.1 Allergy status to other antibiotic agents; Z88.2 Allergy status to sulfonamides; Z53.20 Procedure and treatment not carried out because of patient's decision for unspecified reasons
CPT/HCPCS: 99284 ×2; 96374 ×2; 96375 ×3; 96376 ×3; 96361 ×3; 36415; 80053; 80074; 82150; 83690; 85025; 81001; 76705; J2405; J1170

== ENCOUNTER 2017-07-31 16:26 | Emergency (ER) | payer OTHER ==
[2017-07-31 16:31] VITALS: RESP 18
[2017-07-31] MEDS ORDERED: KETOROLAC 30 MG/ML 1 ML VIAL IVP STA (16:42)
[2017-07-31] MEDS ORDERED: ONDANSETRON 4 MG/2 ML VIAL IVP STA (16:42)
[2017-07-31] MEDS ORDERED: SODIUM CHLORIDE 0.9% 1,000 ML IV STA (16:42)
--- NOTE | 2017-07-31 16:45 | ED ---
General Adult HPI - General Chief complaint: Abdominal Pain Stated complaint: Abd Pain Time Seen by Provider: 07/31/17 16:32 Source: patient, RN notes reviewed Mode of arrival: ambulatory Limitations: no limitations - History of Present Illness Initial comments: 37 yo female presents to the ER with cc of left flank pain. Patient admits to history of kidney stones in the past. She denies any burning or stinging with urination. She states the pain started last night this morning it's in the left side wrapping around her left abdomen. She hasn't had a nausea vomiting. She states she does a lot of discomfort. Dr. Rascon has been her urologist in the past. She has had stones removed in the past. She states that no other symptoms at this time.Patient denies any recent fever, chills, shortness of breath, chest pain, nausea vomiting, numbness or tingling, dysuria or hematuria , constipation or diarrhea, headaches or visual changes, or any other current symptoms. - Related Data Home Medications Medication Instructions Recorded Confirmed rOPINIRole HCL [Requip] 0.5 mg PO HS 03/06/17 07/31/17 Sertraline [Zoloft] 50 mg PO HS 07/31/17 07/31/17 clonazePAM [KlonoPIN] 0.5 mg PO HS 07/31/17 07/31/17 Previous Rx's Medication Instructions Recorded Hydrocodone/Acetaminophen [[place] 1 each PO Q6HR PRN #20 tab 07/31/17 5-325] Ketorolac [Toradol] 10 mg PO Q6HR #20 tab 07/31/17 Ondansetron Odt [Zofran ODT] 4 mg PO Q8HR PRN #20 tab 07/31/17 Tamsulosin [Flomax] 0.4 mg PO DAILY #5 cap 07/31/17 Allergies Allergy/AdvReac Type Severity Reaction Status Date / Time erythromycin base Allergy Rash/Hives Verified 07/31/17 17:02 sulfamethoxazole Allergy Rash/Hives Verified 07/31/17 17:02 [From Bactrim] trimethoprim [From Bactrim] Allergy Rash/Hives Verified 07/31/17 17:02 Review of Systems ROS Statement: Those systems with pertinent positive or pertinent negative responses have been documented in the HPI. ROS Other: All systems not noted in ROS Statement are negative. Past Medical History Additional Past Medical History / Comment(s): Depression, history of nephrolithiasis, obesity, questionable restlessness in the lower extremities History of Any Multi-Drug Resistant Organisms: None Reported Past Surgical History: Section, Orthopedic Surgery, Tonsillectomy, Tubal Ligation Additional Past Surgical History / Comment(s): LEFT KNEE ARTHROSCOPY, CYSTOSCOPE , LITHOTRIPSY Past Anesthesia/Blood Transfusion Reactions: Postoperative Nausea & Vomiting ( PONV) Past Psychological History: Anxiety, Depression Smoking Status: Current every day smoker Past Alcohol Use History: None Reported Past Drug Use History: Marijuana - Past Family History Mother Family Medical History: No Reported History General Exam - General Exam Comments Initial Comments: General: The patient is awake and alert, in no distress, and does not appear acutely ill. Eye: Pupils are equal, round and reactive to light, extra-ocular movements are intact; there is normal conjunctiva bilaterally. No signs of icterus. Ears, nose, mouth and throat: There are moist mucous membranes. Neck: The neck is supple, there is no tenderness. Cardiovascular: There is a regular rate and rhythm. No murmur, rub or gallop is appreciated. Respiratory: Lungs are clear to auscultation, respirations are non-labored, breath sounds are equal. No wheezes, stridor, rales, or rhonchi. Gastrointestinal: Soft, non-distended, non-tender abdomen without masses or organomegaly noted. There is no rebound or guarding present. No CVA tenderness. Bowel sounds are unremarkable. Back: There is no tenderness to palpation in the midline. There is no obvious deformity. No rashes noted. Musculoskeletal: Normal ROM, no tenderness, There is no pedal edema. There is no calf tenderness or swelling. Sensation intact. Pulses equal bilaterally 2+. Neurological: CN II-XII intact, There are no obvious motor or sensory deficits. Coordination appears grossly intact. Speech is normal. Skin: Skin is warm and dry and no rashes or lesions are noted. Psychiatric: Cooperative, appropriate mood & affect, normal judgment. Limitations: no limitations Course Vital Signs 07/31/17 16:29 Temperature 96.8 F L Pulse Rate 55 L Respiratory 18 Rate Blood Pressure 128/88 O2 Sat by Pulse 99 Oximetry Medical Decision Making - Medical Decision Making 37-year-old female presents emergency department with a chief complaint of left flank pain. This time CT is reviewed. At this time there does not appear to be a stone. This time there is blood in the urine however there is suspicion for stone. We will treat accordingly. We did discuss follow-up with urology. We discussed return parameters all questions. Patient stated that she understood and she is. This plan. She'll be discharged home. - Lab Data Result diagrams: 07/31/17 17:00 07/31/17 17:00 Lab Results 07/31/17 07/31/17 07/31/17 Range/Units 17:00 17:00 17:00 WBC 8.6 (3.8-10.6) k/uL RBC 4.82 (3.80-5.40) m/uL Hgb 14.0 (11.4-16.0) gm/dL Hct 43.0 (34.0-46.0) % MCV 89.2 (80.0-100.0) fL MCH 29.0 (25.0-35.0) pg MCHC 32.6 (31.0-37.0) g/dL RDW 13.1 (11.5-15.5) % Plt Count 228 (150-450) k/uL Neutrophils % 56 % Lymphocytes % 35 % Monocytes % 5 % Eosinophils % 2 % Basophils % 1 % Neutrophils # 4.8 (1.3-7.7) k/uL Lymphocytes # 3.0 (1.0-4.8) k/uL Monocytes # 0.5 (0-1.0) k/uL Eosinophils # 0.2 (0-0.7) k/uL Basophils # 0.1 (0-0.2) k/uL Sodium 142 (137-145) mmol/L Potassium 4.2 (3.5-5.1) mmol/L Chloride 109 H (98-107) mmol/L Carbon Dioxide 23 (22-30) mmol/L Anion Gap 10 mmol/L BUN 12 (7-17) mg/dL Creatinine 0.62 (0.52-1.04) mg/dL Est GFR (MDRD) Af Amer >60 (>60 ml/min/1.73 sqM) Est GFR (MDRD) Non-Af >60 (>60 ml/min/1.73 sqM) Glucose 78 (74-99) mg/dL Calcium 9.1 (8.4-10.2) mg/dL Total Bilirubin 0.2 (0.2-1.3) mg/dL AST 24 (14-36) U/L ALT 33 (9-52) U/L Alkaline Phosphatase 59 (38-126) U/L Total Protein 6.7 (6.3-8.2) g/dL Albumin 3.8 (3.5-5.0) g/dL HCG, Quant <2.4 mIU/mL Urine Color Yellow Urine Appearance Clear (Clear) Urine pH 6.0 (5.0-8.0) Ur Specific [place] 1.029 (1.001-1.035) Urine Protein 1+ H (Negative) Urine Glucose (UA) Negative (Negative) Urine Ketones Negative (Negative) Urine Blood Large H (Negative) Urine Nitrite Negative (Negative) Urine Bilirubin Negative (Negative) Urine Urobilinogen <2.0 (<2.0) mg/dL Ur Leukocyte Esterase Negative (Negative) Urine RBC 119 H (0-5) /hpf Urine WBC 3 (0-5) /hpf Ur Squamous Epith Cells 2 (0-4) /hpf Urine Bacteria Rare H (None) /hpf Urine Mucus Occasional H (None) /hpf - Radiology Data Radiology results: report reviewed, image reviewed Disposition Clinical Impression: Hematuria, Left flank pain Disposition: HOME SELF-CARE Condition: Stable Instructions: Flank Pain (ED) Additional Instructions: Please use medication as discussed. Please follow up with family doctor if symptoms have not improved over the next two days. Please return to the emergency room if your symptoms increase or worsen or for any other concerns. Prescriptions: Hydrocodone/Acetaminophen [[place] 5-325] 1 each PO Q6HR PRN #20 tab PRN Reason: Pain Ketorolac [Toradol] 10 mg PO Q6HR #20 tab Ondansetron Odt [Zofran ODT] 4 mg PO Q8HR PRN #20 tab PRN Reason: Nausea Tamsulosin [Flomax] 0.4 mg PO DAILY #5 cap Referrals: Shawna Biswas MD [Primary Care Provider] - 1-2 days Time of Disposition: 17:56
[2017-07-31 17:10] LABS: Basophils # (A) 0.1 k/uL (0-0.2); Basophils % (A) 1 %; Eosinophils # (A) 0.2 k/uL (0-0.7); Eosinophils % (A) 2 %; Lymphocytes % (A) 35 %; MCHC 32.6 g/dL (31.0-37.0); MCV 89.2 fL (80.0-100.0); Mean Platelet Volume 6.9; Monocytes # (A) 0.5 k/uL (0-1.0); Monocytes % (A) 5 %; Neutrophils # (A) 4.8 k/uL (1.3-7.7); Neutrophils % (A) 56 %; Platelet Count 228 k/uL (150-450); RBC 4.82 m/uL (3.80-5.40); RDW 13.1 % (11.5-15.5); WBC 8.6 k/uL (3.8-10.6)
[2017-07-31 17:19] LABS: Appearance,Urine Clear (Clear); Bacteria,Urine Rare /hpf; Bilirubin,Urine Negative (Negative); Blood,Urine Large (Negative); Color,Urine Yellow; Glucose,Urine (UA) Negative (Negative); Ketones,Urine Negative (Negative); Leukocyte Esterase,Urine Negative (Negative); Mucus,Urine Occasional /hpf; Protein,Urine 1+ (Negative); RBC,Urine 119 /hpf (0-5); Specific Gravity,Urine 1.029 (1.001-1.035); Squamous Epithelial Cell,Urine 2 /hpf (0-4); Urobilinogen,Urine <2.0 mg/dL (<2.0); WBC,Urine 3 /hpf (0-5)
[2017-07-31] MEDS ORDERED: MORPHINE SULFATE 4 MG/ML SYRINGE IV STA (17:25)
[2017-07-31 17:26] LABS: ALT 33 U/L (9-52); AST 24 U/L (14-36); Albumin 3.8 g/dL (3.5-5.0); Alkaline Phosphatase 59 U/L (38-126); Anion Gap 10 mmol/L; Blood Urea Nitrogen 12 mg/dL (7-17); Calcium 9.1 mg/dL (8.4-10.2); Carbon Dioxide 23 mmol/L (22-30); Chloride 109 mmol/L (98-107); Glucose 78 mg/dL (74-99); Potassium 4.2 mmol/L (3.5-5.1); Sodium 142 mmol/L (137-145); Total Bilirubin 0.2 mg/dL (0.2-1.3); Total Protein 6.7 g/dL (6.3-8.2)
[2017-07-31 17:42] LABS: HCG,Quantitative Serum <2.4 mIU/mL
--- NOTE | 2017-07-31 17:54 | CT ---
EXAMINATION TYPE: CT abdomen pelvis wo con DATE OF EXAM: 07/31/2017 COMPARISON: 03/06/2017 HISTORY: Left side abdominal pain. CT DLP: 1748 mGycm Automated exposure control for dose reduction was used. TECHNIQUE: Helical acquisition of images was performed from the lung bases through the pelvis. The IV contrast was Omnipaque 100 mL. FINDINGS: Lung bases are clear of infiltrate. There is no pleural effusion. There is no pericardial effusion. T here is probably a 7 mm cyst in the superior right lobe of the liver. Spleen appears normal. There is no pancreatic mass. Gallbladder is not seen. Bile ducts are not dilat ed. There is no adrenal mass. Kidneys show satisfactory contrast opacification. There is no hydronephrosi s. There is no retroperitoneal adenopathy. There is no ascites. There is a 4 cm thin-walled cyst in the right adnexal region. Uterus appears normal. Bladder is almost empty. There is no free fluid in the p paxton. I see no intestinal wall thickening. There are no dilated loops. The bony structures appear in tact. IMPRESSION: NEGATIVE CT SCAN OF THE ABDOMEN AND PELVIS. I DO NOT SEE A CAUSE FOR LEFT SIDE ABDOMINAL PAIN. THERE IS A NEW CYST ON THE RIGHT OVARY COMPARED TO OLD EXAM. APPENDIX IS NOT SEEN. CHOLECYSTECTOMY NOTED.
[2017-07-31] MEDS ORDERED: MORPHINE SULFATE 4 MG/ML SYRINGE IVP STA (18:12)
[2017-07-31 18:45] VITALS: BP 166/85; PULSE 98; TEMP 98.6
== END 2017-07-31 18:42 | disposition home or self-care (01) ==
LOC: EC 16:26
DX: R10.9 Unspecified abdominal pain (principal); R31.9 Hematuria, unspecified; F32.9 Major depressive disorder, single episode, unspecified; F41.9 Anxiety disorder, unspecified; F17.200 Nicotine dependence, unspecified, uncomplicated; E66.9 Obesity, unspecified; Z68.38 Body mass index [BMI] 38.0-38.9, adult; Z87.442 Personal history of urinary calculi; Z98.51 Tubal ligation status; Z79.899 Other long term (current) drug therapy; Z88.1 Allergy status to other antibiotic agents; Z88.2 Allergy status to sulfonamides
CPT/HCPCS: 36415; 80053; 85025; 81001; 84702; 87086; 74176; 99284; 96374; 96375 ×2; 96376; 96361; J2270; J2405; J1885; Q9967

== ENCOUNTER → 2017-08-19 | Outpatient (CLI) | payer OTHER ==
--- NOTE | 2017-08-19 17:56 | PN ---
PROGRESS NOTE A 37-year-old female patient coming in for a followup. The patient initially was referred to me for symptoms of chronic insomnia. The patient underwent a screening polysomnogram and she was not found to have any significant sleep breathing disorder. Insomnia was not fully supported and the patient had a component of sleep misconception. Nevertheless, she had sleep fragmentation and she also had diminished REM and over-representation of stage II sleep. She was quite anxious and she had a stressful job. She is out on chronic anxiety and panic. She was on a combination of Zoloft and Xanax. Based on that, I increased her Zoloft to 100 mg. I switched her from Xanax to Klonopin 0.5 mg p.o. daily. Currently, she is doing much better. She is able to initiate and maintain sleep without any major difficulty. She goes to bed around midnight and she wakes up at 6:45 am in the morning. During the day, she is able to function and work without any major hypersomnia or sleepiness. Her weight is stable. She is working between 9:00 a.m. and 7:00 p.m. She is quite tired during after she comes back from work, yet her symptoms of fatigue and sleepiness have pretty much recovered. No side effects to the above-mentioned treatment. On a separate note, the patient was complaining of sore throat and cough and congestion. She has a kid with flu and another kid with soft strep throat. On examination, she has erythema of the posterior pharynx. She is post tonsillectomy. BP is 112/69, pulse 74, respirations 16, temperature 97.6, saturation 95% on room air. Weight is 248. Height is 5 feet 5 inches, BMI is 41.2. GENERAL APPEARANCE: Calm, comfortable. Head is atraumatic, normocephalic. There is crowding of posterior pharynx bilaterally. There is also some erythema of the posterior pharynx. LUNGS: Clear to auscultation. Heart sounds regular rhythm. Normal S1, S2. No murmurs. ABDOMEN: Soft, nontender. No organomegaly. EXTREMITIES: No edema. No cyanosis or clubbing. NEUROLOGIC: Alert and oriented x3. There are no focal neurological deficits. Psychiatric is positive for increased anxiety which is well-treated. For now, no history of depression. IMPRESSION: 1. There is chronic anxiety with a mild component of insomnia. 2. Insomnia versus sleep misconception. 3. Sleep fragmentation improved with the above-mentioned treatment, which includes a combination of Zoloft and Klonopin. 4. Restless leg syndrome, currently on Requip, well-treated. PLAN: 1. Continue Zoloft and Klonopin and 6 months' supply will be given at the same doses, which will be Zoloft 100 mg Klonopin 0.5 mg. 2. Encourage weight loss. 3. Smoking cessation. 4. The patient has some sore throat and possibly some acute streptococcal infection. She will be given Augmentin 875 mg for the next 5 days. 5. See me back in 6 months' time in followup. MMODL / IJN: [id number] /
== END | disposition home or self-care (01) ==
LOC: SLEEP 16:52
PROVIDERS: ATTEND Internal Medicine Critical Care Medicine
DX: G47.00 Insomnia, unspecified (principal); F41.9 Anxiety disorder, unspecified; G89.29 Other chronic pain; G47.8 Other sleep disorders; G25.81 Restless legs syndrome; Z79.899 Other long term (current) drug therapy

== ENCOUNTER 2017-09-04 22:50 | Emergency (ER) | payer OTHER ==
[2017-09-05] MEDS ORDERED: CLINDAMYCIN 150 MG CAP PO STA (00:08)
[2017-09-05] MEDS ORDERED: predniSONE 20 MG TAB PO STA (00:08)
--- NOTE | 2017-09-05 00:11 | ED ---
ENT HPI - General Chief complaint: ENT Stated complaint: ear ache Time Seen by Provider: 09/04/17 23:01 Source: patient Mode of arrival: ambulatory Limitations: no limitations - History of Present Illness Initial comments: 37-year-old female presenting for evaluation of right earache. She states that for the last 3 weeks she's been having pharyngitis symptoms which is now progressed into her right ear. This is acutely worsened over the last 2- 3 days and she states feels like a fullness between her ear and her oropharynx. She was initially diagnosed at her primary care physician's office and given a prescription for Augmentin. Since then she is followed up in medical rest 2 times and each time turned away been told that she has a viral pharyngitis that will resolve on its own. She states the sore throat may have improved slightly however the worsening of her pain to her ear has caused her discomfort. She denies any discharge from the ear, fevers, chills, nausea, vomiting. There is no oropharyngeal swelling that she states that there is no neck swelling however she does have tender lymphadenopathy. - Related Data Home Medications Medication Instructions Recorded Confirmed rOPINIRole HCL [Requip] 0.5 mg PO HS 03/06/17 09/04/17 clonazePAM [KlonoPIN] 0.5 mg PO HS 07/31/17 09/04/17 Sertraline [Zoloft] 100 mg PO HS 09/04/17 09/04/17 Previous Rx's Medication Instructions Recorded Clindamycin HCl [Cleocin] 300 mg PO Q8H #29 cap 09/05/17 predniSONE 50 mg PO DAILY #4 tablet 09/05/17 Allergies Allergy/AdvReac Type Severity Reaction Status Date / Time erythromycin base Allergy Rash/Hives Verified 09/04/17 23:13 sulfamethoxazole Allergy Rash/Hives Verified 09/04/17 23:13 [From Bactrim] trimethoprim [From Bactrim] Allergy Rash/Hives Verified 09/04/17 23:13 Review of Systems ROS Statement: Those systems with pertinent positive or pertinent negative responses have been documented in the HPI. ROS Other: All systems not noted in ROS Statement are negative. Constitutional: Denies: fever, chills Eyes: Denies: eye pain, eye discharge, vision change ENT: Reports: ear pain, throat pain. Denies: dental pain, congestion Respiratory: Denies: cough, dyspnea Cardiovascular: Denies: chest pain, palpitations Endocrine: Denies: fatigue, polydipsia, polyuria Skin: Denies: rash, lesions Past Medical History Additional Past Medical History / Comment(s): Depression, history of nephrolithiasis, obesity, questionable restlessness in the lower extremities History of Any Multi-Drug Resistant Organisms: None Reported Past Surgical History: Section, Orthopedic Surgery, Tonsillectomy, Tubal Ligation Additional Past Surgical History / Comment(s): LEFT KNEE ARTHROSCOPY, CYSTOSCOPE , LITHOTRIPSY Past Anesthesia/Blood Transfusion Reactions: Postoperative Nausea & Vomiting ( PONV) Past Psychological History: Anxiety, Depression Smoking Status: Current every day smoker Past Alcohol Use History: None Reported Past Drug Use History: Marijuana - Past Family History Mother Family Medical History: No Reported History General Exam Limitations: no limitations General appearance: alert, in no apparent distress Head exam: Present: atraumatic, normocephalic Eye exam: Present: normal appearance, PERRL, EOMI. Absent: scleral icterus, conjunctival injection ENT exam: Present: mucous membranes moist, other (Posterior oropharynx mildly erythematous without petechia or tonsillar exudate. There is no enlarged peritonsillar soft tissue swelling. Tympanic membrane on the right mildly erythematous and slightly bulging without effusion.) Neck exam: Present: tenderness, full ROM, lymphadenopathy Respiratory exam: Present: normal lung sounds bilaterally. Absent: respiratory distress, wheezes, rales, rhonchi, stridor Cardiovascular Exam: Present: regular rate, normal rhythm GI/Abdominal exam: Present: soft. Absent: distended, tenderness, guarding, rebound, rigid Rectal exam: Present: deferred Neurological exam: Present: alert, oriented X3 Psychiatric exam: Present: normal affect, normal mood Skin exam: Present: warm, dry, intact Course Vital Signs 09/04/17 09/05/17 22:52 00:22 Temperature 98.5 F 98.6 F Pulse Rate 78 81 Respiratory 18 16 Rate Blood Pressure 144/86 129/80 O2 Sat by Pulse 98 98 Oximetry Medical Decision Making - Medical Decision Making 37-year-old female with 3 weeks of pharyngitis symptoms and a completed course of Augmentin presented for evaluation of continued throat pain as well as discomfort to the right ear. Physical examination she appears to be in no apparent distress and vitals signs are stable. Right ear is mild avulsion and she continues to have erythema in the posterior oropharynx. There is tender lymphadenopathy to the right submandibular lymph nodes however there is no neck masses or peritonsillar swelling to indicate peritonsillar abscess. Discussed potential treatment therapies and patient agreed to trial a course of clindamycin with prednisone and a follow-up as an outpatient. She was given strict return instructions and advised to make an appointment with her primary care physician for next week but to return to this ED over the weekend if her symptoms should worsen or persist. The patient acknowledged an understanding of all information provided and agreed with this plan of care. Disposition Clinical Impression: Pharyngitis, Lymphadenitis Disposition: HOME SELF-CARE Condition: Stable Instructions: Earache (ED) Additional Instructions: Please use medication as discussed. Please follow up with family doctor if symptoms have not improved over the next two days. Please return to the emergency room if your symptoms increase or worsen or for any other concerns. Prescriptions: Clindamycin HCl [Cleocin] 300 mg PO Q8H #29 cap predniSONE 50 mg PO DAILY #4 tablet Referrals: Shawna Biswas MD [Primary Care Provider] - 1-2 days Time of Disposition: 00:11
[2017-09-05 00:23] VITALS: BP 129/80; PULSE 81; RESP 16; TEMP 98.6
== END 2017-09-05 00:22 | disposition home or self-care (01) ==
LOC: EC 22:50
DX: J02.9 Acute pharyngitis, unspecified (principal); I88.9 Nonspecific lymphadenitis, unspecified; H92.01 Otalgia, right ear; F32.9 Major depressive disorder, single episode, unspecified; F41.9 Anxiety disorder, unspecified; E66.9 Obesity, unspecified; Z68.39 Body mass index [BMI] 39.0-39.9, adult; F17.200 Nicotine dependence, unspecified, uncomplicated; Z79.899 Other long term (current) drug therapy; Z88.1 Allergy status to other antibiotic agents; Z88.2 Allergy status to sulfonamides
CPT/HCPCS: 99282; J7512

== ENCOUNTER 2018-01-20 18:45 | Emergency (ER) | payer OTHER ==
[2018-01-20 19:28] VITALS: RESP 18
[2018-01-20 20:28] LABS: Appearance,Urine Cloudy (Clear); Bacteria,Urine Rare /hpf; Bilirubin,Urine Negative (Negative); Blood,Urine Small (Negative); Color,Urine Yellow; Glucose,Urine (UA) Negative (Negative); Hyaline Casts,Urine 3 /lpf (0-2); Ketones,Urine Trace (Negative); Leukocyte Esterase,Urine Small (Negative); Mucus,Urine Few /hpf; Nitrite,Urine Negative (Negative); Protein,Urine 1+ (Negative); RBC,Urine 2 /hpf (0-5); Squamous Epithelial Cell,Urine 20 /hpf (0-4); Urobilinogen,Urine <2.0 mg/dL (<2.0); WBC,Urine 3 /hpf (0-5)
[2018-01-20 20:29] LABS: ALT 50 U/L (9-52); AST 31 U/L (14-36); Alkaline Phosphatase 59 U/L (38-126); Amylase 51 U/L (30-110); Anion Gap 9 mmol/L; Blood Urea Nitrogen 10 mg/dL (7-17); Calcium 9.4 mg/dL (8.4-10.2); Carbon Dioxide 22 mmol/L (22-30); Chloride 109 mmol/L (98-107); Glucose 96 mg/dL (74-99); Lipase 56 U/L (23-300); Potassium 4.3 mmol/L (3.5-5.1); Sodium 140 mmol/L (137-145); Total Bilirubin 0.3 mg/dL (0.2-1.3)
[2018-01-20 20:37] LABS: Basophils % (A) 0 %; Eosinophils # (A) 0.2 k/uL (0-0.7); Eosinophils % (A) 2 %; HCT 47.7 % (34.0-46.0); HGB 15.3 gm/dL (11.4-16.0); Lymphocytes # (A) 2.3 k/uL (1.0-4.8); Lymphocytes % (A) 25 %; MCH 28.4 pg (25.0-35.0); MCHC 32.1 g/dL (31.0-37.0); MCV 88.4 fL (80.0-100.0); Mean Platelet Volume 6.8; Monocytes # (A) 0.4 k/uL (0-1.0); Monocytes % (A) 5 %; Neutrophils # (A) 6.1 k/uL (1.3-7.7); Neutrophils % (A) 67 %; Platelet Count 227 k/uL (150-450); RBC 5.39 m/uL (3.80-5.40); RDW 12.9 % (11.5-15.5)
[2018-01-20] MEDS ORDERED: MAG HYDROX/AL HYDROX/SIMETH 30 ML, HYOSCYAMINE ELIXIR 10 ML, CIMETIDINE HCL 300 MG, LID... PO STA ×4 (21:15)
[2018-01-20] MEDS ORDERED: ONDANSETRON 4 MG/2 ML VIAL IVP STA (21:15)
[2018-01-20] MEDS ORDERED: SODIUM CHLORIDE 0.9% 1,000 ML IV ONE (21:15)
[2018-01-20] MEDS ORDERED: FAMOTIDINE 20 MG/2 ML VIAL IV STA (21:15)
--- NOTE | 2018-01-20 21:18 | ED ---
Abdominal Pain HPI - General Chief Complaint: Abdominal Pain Stated Complaint: Stomach/rib pain Time Seen by Provider: 01/20/18 21:09 Source: patient Mode of arrival: ambulatory Limitations: no limitations - History of Present Illness Initial Comments: 37-year-old female patient presents to the emergency department today for complaints of midepigastric abdominal pain that radiates to both the right and left upper quadrants beneath her ribs. Patient states the pain does radiate through to her back. She describes the pain as an aching cramping pain. States that she has been nauseated for the last 2 days and did have an episode of vomiting yesterday. Denies any fevers or chills. States that she has had diarrhea since having her gallbladder out over a year ago. Denies any hematochezia or melena. Denies any chance of . Denies any ingestion of questionable foods, recent travel, or sick contacts. Denies any hematuria, dysuria, urinary frequency, urinary urgency. Patient denies any recent rash, shortness breath, chest pain, numbness, tingling, dizziness, weakness, headache , visual changes, or any other complaints. - Related Data Home Medications Medication Instructions Recorded Confirmed rOPINIRole HCL [Requip] 0.5 mg PO HS 03/06/17 09/04/17 clonazePAM [KlonoPIN] 0.5 mg PO HS 07/31/17 09/04/17 Sertraline [Zoloft] 100 mg PO HS 09/04/17 09/04/17 Previous Rx's Medication Instructions Recorded Clindamycin HCl [Cleocin] 300 mg PO Q8H #29 cap 09/05/17 predniSONE 50 mg PO DAILY #4 tablet 09/05/17 Famotidine [Pepcid] 20 mg PO DAILY #5 tablet 01/21/18 Allergies Allergy/AdvReac Type Severity Reaction Status Date / Time erythromycin base Allergy Rash/Hives Verified 01/20/18 19:28 sulfamethoxazole Allergy Rash/Hives Verified 01/20/18 19:28 [From Bactrim] trimethoprim [From Bactrim] Allergy Rash/Hives Verified 01/20/18 19:28 Review of Systems ROS Statement: Those systems with pertinent positive or pertinent negative responses have been documented in the HPI. ROS Other: All systems not noted in ROS Statement are negative. Past Medical History Past Medical History: No Reported History Additional Past Medical History / Comment(s): Depression, history of nephrolithiasis, obesity, questionable restlessness in the lower extremities History of Any Multi-Drug Resistant Organisms: None Reported Past Surgical History: Section, Orthopedic Surgery, Tonsillectomy, Tubal Ligation Additional Past Surgical History / Comment(s): LEFT KNEE ARTHROSCOPY, CYSTOSCOPE , LITHOTRIPSY Past Anesthesia/Blood Transfusion Reactions: Postoperative Nausea & Vomiting ( PONV) Past Psychological History: Anxiety, Depression Smoking Status: Former smoker Past Alcohol Use History: None Reported Past Drug Use History: Marijuana - Past Family History Mother Family Medical History: No Reported History General Exam Limitations: no limitations General appearance: alert, in no apparent distress, other (This is a well- developed, well-nourished adult female patient in no acute distress. Vital signs upon presentation are temperature 97.8F, pulse 59, respirations 18, blood pressure 144/93, pulse ox 98% on room air.) Eye exam: Present: normal appearance, PERRL, EOMI. Absent: scleral icterus, conjunctival injection, periorbital swelling ENT exam: Present: normal exam, normal oropharynx, mucous membranes moist Respiratory exam: Present: normal lung sounds bilaterally. Absent: respiratory distress, wheezes, rales, rhonchi, stridor Cardiovascular Exam: Present: regular rate, normal rhythm, normal heart sounds. Absent: systolic murmur, diastolic murmur, rubs, gallop, clicks GI/Abdominal exam: Present: soft, tenderness (Midepigastric tenderness), normal bowel sounds. Absent: distended, guarding, rebound, rigid Back exam: Present: normal inspection. Absent: CVA tenderness (R), CVA tenderness (L) Neurological exam: Present: alert, oriented X3, CN II-XII intact Psychiatric exam: Present: normal affect, normal mood Skin exam: Present: warm, dry, intact, normal color. Absent: rash Course Vital Signs 01/20/18 01/20/18 01/21/18 19:25 22:35 00:42 Temperature 97.8 F 98.0 F 98.4 F Pulse Rate 59 L 49 L 55 L Respiratory 18 18 18 Rate Blood Pressure 144/93 158/78 130/69 O2 Sat by Pulse 98 99 98 Oximetry Medical Decision Making - Medical Decision Making 37-year-old female patient presented to the emergency department today for evaluation of midepigastric abdominal pain and nausea. Physical examination did reveal midepigastric tenderness. Labs reviewed and were unremarkable. Amylase and lipase were normal. Normal bilirubin. Patient is status post cholecystectomy. Did give patient GI cocktail and Pepcid, no relief in symptoms I did add morphine. Patient continued to have abdominal pains I did perform computed tomography scan of the abdomen and pelvis, this is normal. I did discuss findings and results with the patient. We did discuss gastritis versus peptic ulcer disease as a cause for her symptoms. She is instructed to take Pepcid as directed. She is instructed to follow-up with her primary care physician and to make an appointment with Dr. Escoto. Return parameters were discussed in detail. She verbalizes understanding and agrees with this plan. - Lab Data Result diagrams: 01/20/18 20:09 01/20/18 20:09 Lab Results 01/20/18 01/20/18 01/20/18 Range/Units 20:09 20:09 20:09 WBC 9.0 (3.8-10.6) k/uL RBC 5.39 (3.80-5.40) m/uL Hgb 15.3 (11.4-16.0) gm/dL Hct 47.7 H (34.0-46.0) % MCV 88.4 (80.0-100.0) fL MCH 28.4 (25.0-35.0) pg MCHC 32.1 (31.0-37.0) g/dL RDW 12.9 (11.5-15.5) % Plt Count 227 (150-450) k/uL Neutrophils % 67 % Lymphocytes % 25 % Monocytes % 5 % Eosinophils % 2 % Basophils % 0 % Neutrophils # 6.1 (1.3-7.7) k/uL Lymphocytes # 2.3 (1.0-4.8) k/uL Monocytes # 0.4 (0-1.0) k/uL Eosinophils # 0.2 (0-0.7) k/uL Basophils # 0.0 (0-0.2) k/uL Sodium 140 (137-145) mmol/L Potassium 4.3 (3.5-5.1) mmol/L Chloride 109 H (98-107) mmol/L Carbon Dioxide 22 (22-30) mmol/L Anion Gap 9 mmol/L BUN 10 (7-17) mg/dL Creatinine 0.70 (0.52-1.04) mg/dL Est GFR (CKD-EPI)AfAm >90 (>60 ml/min/1.73 sqM) Est GFR (CKD-EPI)NonAf >90 (>60 ml/min/1.73 sqM) Glucose 96 (74-99) mg/dL Calcium 9.4 (8.4-10.2) mg/dL Total Bilirubin 0.3 (0.2-1.3) mg/dL AST 31 (14-36) U/L ALT 50 (9-52) U/L Alkaline Phosphatase 59 (38-126) U/L Total Protein 7.0 (6.3-8.2) g/dL Albumin 4.0 (3.5-5.0) g/dL Amylase 51 (30-110) U/L Lipase 56 (23-300) U/L Urine Color Urine Appearance (Clear) Urine pH (5.0-8.0) Ur Specific Heber (1.001-1.035) Urine Protein (Negative) Urine Glucose (UA) (Negative) Urine Ketones (Negative) Urine Blood (Negative) Urine Nitrite (Negative) Urine Bilirubin (Negative) Urine Urobilinogen (<2.0) mg/dL Ur Leukocyte Esterase (Negative) Urine RBC (0-5) /hpf Urine WBC (0-5) /hpf Ur Squamous Epith Cells (0-4) /hpf Urine Bacteria (None) /hpf Hyaline Casts (0-2) /lpf Urine Mucus (None) /hpf Urine HCG, Qual Not Detected (Not Detectd) 01/20/18 Range/Units 20:09 WBC (3.8-10.6) k/uL RBC (3.80-5.40) m/uL Hgb (11.4-16.0) gm/dL Hct (34.0-46.0) % MCV (80.0-100.0) fL MCH (25.0-35.0) pg MCHC (31.0-37.0) g/dL RDW (11.5-15.5) % Plt Count (150-450) k/uL Neutrophils % % Lymphocytes % % Monocytes % % Eosinophils % % Basophils % % Neutrophils # (1.3-7.7) k/uL Lymphocytes # (1.0-4.8) k/uL Monocytes # (0-1.0) k/uL Eosinophils # (0-0.7) k/uL Basophils # (0-0.2) k/uL Sodium (137-145) mmol/L Potassium (3.5-5.1) mmol/L Chloride (98-107) mmol/L Carbon Dioxide (22-30) mmol/L Anion Gap mmol/L BUN (7-17) mg/dL Creatinine (0.52-1.04) mg/dL Est GFR (CKD-EPI)AfAm (>60 ml/min/1.73 sqM) Est GFR (CKD-EPI)NonAf (>60 ml/min/1.73 sqM) Glucose (74-99) mg/dL Calcium (8.4-10.2) mg/dL Total Bilirubin (0.2-1.3) mg/dL AST (14-36) U/L ALT (9-52) U/L Alkaline Phosphatase (38-126) U/L Total Protein (6.3-8.2) g/dL Albumin (3.5-5.0) g/dL Amylase (30-110) U/L Lipase (23-300) U/L Urine Color Yellow Urine Appearance Cloudy H (Clear) Urine pH 6.0 (5.0-8.0) Ur Specific Heber 1.030 (1.001-1.035) Urine Protein 1+ H (Negative) Urine Glucose (UA) Negative (Negative) Urine Ketones Trace H (Negative) Urine Blood Small H (Negative) Urine Nitrite Negative (Negative) Urine Bilirubin Negative (Negative) Urine Urobilinogen <2.0 (<2.0) mg/dL Ur Leukocyte Esterase Small H (Negative) Urine RBC 2 (0-5) /hpf Urine WBC 3 (0-5) /hpf Ur Squamous Epith Cells 20 H (0-4) /hpf Urine Bacteria Rare H (None) /hpf Hyaline Casts 3 H (0-2) /lpf Urine Mucus Few H (None) /hpf Urine HCG, Qual (Not Detectd) - EKG Data -: EKG Interpreted by Ga EKG Comments: EKG obtained at 2235 shows sinus bradycardia with sinus arrhythmia. Ventricular rate is 47, TX interval 180, QR adventist 100, QTC 462, QTc 408. No evidence of ST elevation or depression. - Radiology Data Radiology results: report reviewed, image reviewed Two-view x-ray of the abdomen is obtained. There is no sign of intestinal obstruction or pneumoperitoneum. Fecal pattern is normal. Lung bases are clear. There are no pathologic calcifications over the kidneys. Impression by Dr. Mackenzie shows nonacute abdomen no change. CT abdomen and pelvis with contrast was obtained. Report was reviewed in its entirety. Impression by Dr. Mackenzie shows negative computed tomography scan of the abdomen and pelvis. No adverse change compared to old exam. Appendix is not seen. There is clearing of right ovary and cyst compared to old exam. Do not see across her epigastric pain. Disposition Clinical Impression: Midepigastric pain, Gastritis Disposition: ADMITTED IP TO THIS HOSP Condition: Good Instructions: Gastritis (ED), Diet for Stomach Ulcers and Gastritis (ED), Abdominal Pain (ED) Additional Instructions: Follow diet instructions in the discharge instructions. Avoid fatty or greasy foods. Avoid spicy foods. Take medications as directed. Follow-up with your primary care physician as well as Dr. Escoto reevaluation as soon as possible. Return here immediately for any new, worsening, or concerning symptoms. Prescriptions: Famotidine [Pepcid] 20 mg PO DAILY #5 tablet Is patient prescribed a controlled substance at d/c from ED?: No Referrals: Shawna Biswas MD [Primary Care Provider] - 1-2 days Siomara Escoto MD [STAFF PHYSICIAN] - 1-2 days
[2018-01-20] MEDS ORDERED: MORPHINE SULFATE 4 MG/ML SYRINGE IVP STA (21:58)
--- NOTE | 2018-01-20 22:12 | XR ---
EXAMINATION TYPE: XR KUB DATE OF EXAM: 01/20/2018 COMPARISON: 10/13/2016 HISTORY: Abdominal pain TECHNIQUE: 2 views FINDINGS: There is no sign of intestinal obstruction or pneumoperitoneum. Fecal pattern is normal. Jodee ng bases are clear. There are no pathologic ossifications over the kidneys. IMPRESSION: Nonacute abdomen. No change.
--- NOTE | 2018-01-21 00:05 | CT ---
EXAMINATION TYPE: CT abdomen pelvis w con DATE OF EXAM: 01/20/2018 COMPARISON: 07/31/2017 HISTORY: Epigastric pain. CT DLP: 1752.3 mGycm Automated exposure control for dose reduction was used. TECHNIQUE: Helical acquisition of images was performed from the lung bases through the pelvis. CONTRAST: Performed without Oral Contrast and with IV Contrast, patient injected with 100ml mL of Isovue 300. FINDINGS: Lung bases are clear. There is no pleural effusion. There is no pericardial effusion. Liver spleen pancreas appear normal. Bile ducts are not dilated. Gallbladder is absent. There is no adrenal mass. Kidneys show satisfactory contrast opacification. There is no hydronephrosi s. Bladder distends smoothly. Uterus is anteverted. Bony structures are intact. Appendix is not seen. I see no sign of appendicitis. The ureters are not dilated. There is no retrope ritoneal adenopathy. There is no ascites. There is no sign of free air. The stomach appears normal. Duodenum appears normal. IMPRESSION: NEGATIVE CT SCAN OF THE ABDOMEN AND PELVIS. NO ADVERSE CHANGE COMPARED TO OLD EXAM. APPENDIX IS NOT S EEN. THERE IS CLEARING OF RIGHT OVARY AND CYST COMPARED TO OLD EXAM. I DO NOT SEE A CAUSE FOR EPIGAST DHEERAJ PAIN.
[2018-01-21 00:43] VITALS: BP 130/69; PULSE 55; TEMP 98.4
== END 2018-01-21 00:42 | disposition other institution (70) ==
LOC: EC 18:45
DX: K29.70 Gastritis, unspecified, without bleeding (principal); E66.9 Obesity, unspecified; Z68.37 Body mass index [BMI] 37.0-37.9, adult; F32.9 Major depressive disorder, single episode, unspecified; F41.9 Anxiety disorder, unspecified; Z87.891 Personal history of nicotine dependence; Z79.899 Other long term (current) drug therapy; Z88.1 Allergy status to other antibiotic agents; Z88.2 Allergy status to sulfonamides; Z96.652 Presence of left artificial knee joint
CPT/HCPCS: 36415; 93005; 80053; 82150; 83690; 85025; 81001; 81025; 87086; 74018; 74177; 99284; 96374; 96375 ×2; 96361; J2270; J2405; Q9967

== ENCOUNTER 2018-01-28 08:16 | Day surgery (SDC) | payer OTHER ==
[2018-01-23 14:03] VITALS: BMI 37.1
[~2018-01-28 08:16] MED LIST changes: -DEXAMETHASONE SOD PHOSPHATE 10 MG/ML 1 ML VIAL IV ONE; -HEPARIN SODIUM,PORCINE 5,000 UNIT/ML 1 ML VIAL SQ ONE; -MIDAZOLAM 2 MG/2 ML VIAL IV PRN; -ONDANSETRON 4 MG/2 ML VIAL IVP ONE; -ceFAZolin 2 GM in SODIUM CHLORIDE 0.9% 100 ML IVPB ONE
[2018-01-28 08:54] VITALS: RESP 18; TEMP 97.2
[2018-01-28] MEDS ORDERED: LACTATED RINGERS 1,000 ML IV ONE (09:01)
[2018-01-28] MEDS ORDERED: LIDOCAINE 1% 20 ML VIAL (10MG/ML) FOR IV START INTRADERMA ONE (09:02)
[2018-01-28] MEDS ORDERED: PROPOFOL 10 MG/ML 20 ML VIAL IV ONE (09:25)
[2018-01-28] MEDS ORDERED: LIDOCAINE 1% INJ 10MG/ML (20 ML MDV) ONE (09:25)
--- NOTE | 2018-01-28 09:34 | P.PCN ---
Date of Procedure: 01/28/18 Procedure(s) Performed: BRIEF HISTORY: Patient is a 37-year-old, pleasant, . white female, scheduled for an upper endoscopy as a part of value should of severe epigastric pain and chest pain for the last 2 weeks' duration. PROCEDURE PERFORMED: Esophagogastroduodenoscopy with biopsy PREOPERATIVE DIAGNOSIS: Epigastric pain and chest pain of 2 weeks duration IV sedation per anesthesia. PROCEDURE: After informed consent was obtained, the patient was brought into the endoscopy unit. IV sedation was administered by Anesthesia under continuous monitoring. Initially the Olympus GIF-140 video endoscope was inserted into the mouth. Esophagus intubated without any difficulty. It was gradually advanced into the stomach and duodenum and carefully examined. The bulb and the second part of the duodenum appeared normal. The scope at this time was withdrawn to the stomach, adequately insufflated with air, and upon careful examination, mucosa of the antrum, @scattered erosions and biopsies were done from this area. The body, cardia and the fundus appeared normal. The scope was then withdrawn into the esophagus. The GE junction was located at 39 cm from the incthere were 2 superficial erosions at the GE junction consistent with LA grade B reflux esophagitis. Rest of the esophagus appeared normal and the patient tolerated the procedure well. IMPRESSION: 1. Mild antral gastritis. 2. LA grade B reflux esophagitis. RECOMMENDATIONS: The findings of this examination were discussed with the patient as well as her family. She will follow with the biopsy results. She was advised to continue with Protonix 40 mg daily and Pepcid and dinnertime and follow antireflux measures..
[2018-01-28 10:07] VITALS: BP 122/64; PULSE 79
== END 2018-01-28 10:14 | disposition home or self-care (01) ==
LOC: ORWHC2ENDO 08:16
PROVIDERS: ATTEND Internal Medicine Gastroenterology
DX: K29.60 Other gastritis without bleeding (principal); K21.0 Gastro-esophageal reflux disease with esophagitis; K29.50 Unspecified chronic gastritis without bleeding; Z88.1 Allergy status to other antibiotic agents; Z88.2 Allergy status to sulfonamides; Z88.8 Allergy status to other drugs, medicaments and biological substances; F32.9 Major depressive disorder, single episode, unspecified; G47.00 Insomnia, unspecified; Z79.899 Other long term (current) drug therapy
CPT/HCPCS: 88305; 43239; J2001; J2704

== ENCOUNTER 2018-05-13 08:59 | Emergency (ER) | payer OTHER ==
[2018-05-13 09:06] VITALS: TEMP 97.8
[2018-05-13] MEDS ORDERED: MAG HYDROX/AL HYDROX/SIMETH 30 ML, HYOSCYAMINE ELIXIR 10 ML, CIMETIDINE HCL 300 MG, LID... PO STA ×4 (09:39)
[2018-05-13] MEDS ORDERED: ONDANSETRON 4 MG/2 ML VIAL IVP STA (09:39)
--- NOTE | 2018-05-13 09:42 | ED ---
General Adult HPI - General Chief complaint: Abdominal Pain Stated complaint: Abd Pain Time Seen by Provider: 05/13/18 09:31 Source: patient, RN notes reviewed Mode of arrival: ambulatory Limitations: no limitations - History of Present Illness Initial comments: Patient 37-year-old female presented to the emergency room today with chief complaint of epigastric pain that started yesterday afternoon. She does admit that she's had similar symptoms in the past with some acid reflux singed her Pepcid. She states she's not been any difference with the symptoms. States the pain seems to be higher. She does admit that she had a EGD performed a few months ago. She states that the pain radiates up into the chest. She denies any other complaints or symptoms at this time. Patient denies any recent fever, chills, shortness of breath, chest pain, back pain, numbness or tingling, dysuria or hematuria, constipation or diarrhea, headaches or visual changes, or any other complaints. - Related Data Home Medications Medication Instructions Recorded Confirmed rOPINIRole HCL [Requip] 0.5 mg PO HS 03/06/17 05/13/18 clonazePAM [KlonoPIN] 0.5 mg PO HS 07/31/17 05/13/18 Sertraline [Zoloft] 100 mg PO HS 09/04/17 05/13/18 Allergies Allergy/AdvReac Type Severity Reaction Status Date / Time erythromycin base Allergy Rash/Hives Verified 05/13/18 09:26 sulfamethoxazole Allergy Rash/Hives Verified 05/13/18 09:26 [From Bactrim] trimethoprim [From Bactrim] Allergy Rash/Hives Verified 05/13/18 09:26 Review of Systems ROS Statement: Those systems with pertinent positive or pertinent negative responses have been documented in the HPI. ROS Other: All systems not noted in ROS Statement are negative. Past Medical History Past Medical History: Asthma, GERD/Reflux, Skin Disorder Additional Past Medical History / Comment(s): childhood asthma, heartburn and epigastric pain, eczema, kidney stones History of Any Multi-Drug Resistant Organisms: None Reported Past Surgical History: Section, Cholecystectomy, Orthopedic Surgery, Tonsillectomy, Tubal Ligation Additional Past Surgical History / Comment(s): LEFT KNEE ARTHROSCOPY, CYSTOSCOPY , LITHOTRIPSY Past Anesthesia/Blood Transfusion Reactions: Previous Problems w/ Anesthesia, Postoperative Nausea & Vomiting (PONV) Additional Past Anesthesia/Blood Transfusion Reaction / Comment(s): woke up crying one time Past Psychological History: Anxiety, Depression Smoking Status: Former smoker Past Alcohol Use History: None Reported Past Drug Use History: None Reported - Past Family History Mother Family Medical History: Cancer General Exam - General Exam Comments Initial Comments: General: The patient is awake and alert, in no distress, and does not appear acutely ill. Eye: There is normal conjunctiva bilaterally. No signs of icterus. Ears, nose, mouth and throat: There are moist mucous membranes and no oral lesions. Neck: The neck is supple, there is no tenderness or JVD. Cardiovascular: There is a regular rate and rhythm. No murmur, rub or gallop is appreciated. Respiratory: Lungs are clear to auscultation, respirations are non-labored, breath sounds are equal. No wheezes, stridor, rales, or rhonchi. Gastrointestinal: Abdomen soft on palpation. Patient does have tenderness epigastric. Mild tenderness in both left and right upper quadrants. No rebound , guarding or CVA tenderness. Musculoskeletal: Normal ROM, no tenderness. Neurological: A&O x 3. CN II-XII intact, There are no obvious motor or sensory deficits. Coordination appears grossly intact. Speech is normal. Skin: Skin is warm and dry and no rashes or lesions are noted. Psychiatric: Cooperative, appropriate mood & affect, normal judgment. Limitations: no limitations Course Vital Signs 05/13/18 09:04 Temperature 97.8 F Pulse Rate 56 L Respiratory 20 Rate Blood Pressure 137/85 O2 Sat by Pulse 97 Oximetry EKG Findings - EKG Comments: EKG Findings:: EKG performed at 1007: Shows normal sinus rhythm at 65 bpm. MD interval is 180. QRS 86. QT/QTc 410/426. No acute ST changes. Medical Decision Making - Medical Decision Making Patient reexamined at this time shows no signs acute distress. EKG showed normal sinus rhythm. Troponin was negative. Patient's pain was epigastric radiating up. She states that is similar to symptoms that she's had in the past. She did have an EGD performed showed esophagitis. Patient was given GI cocktail had little relief. She was given Protonix and Pepcid IV and is feeling better at this time. She is denying any complaints of pain currently. Patient states she has these medications at home that she can continue. She is advised to follow-up with her GI doctor. Advised return if symptoms increase or worsen. - Lab Data Result diagrams: 05/13/18 10:00 05/13/18 10:00 Lab Results 05/13/18 05/13/18 05/13/18 Range/Units 10:00 10:00 10:00 WBC 7.7 (3.8-10.6) k/uL RBC 5.14 (3.80-5.40) m/uL Hgb 14.8 (11.4-16.0) gm/dL Hct 44.7 (34.0-46.0) % MCV 86.9 (80.0-100.0) fL MCH 28.7 (25.0-35.0) pg MCHC 33.1 (31.0-37.0) g/dL RDW 12.8 (11.5-15.5) % Plt Count 251 (150-450) k/uL Neutrophils % 61 % Lymphocytes % 28 % Monocytes % 5 % Eosinophils % 4 % Basophils % 1 % Neutrophils # 4.7 (1.3-7.7) k/uL Lymphocytes # 2.2 (1.0-4.8) k/uL Monocytes # 0.4 (0-1.0) k/uL Eosinophils # 0.3 (0-0.7) k/uL Basophils # 0.1 (0-0.2) k/uL Sodium 142 (137-145) mmol/L Potassium 4.7 (3.5-5.1) mmol/L Chloride 111 H (98-107) mmol/L Carbon Dioxide 22 (22-30) mmol/L Anion Gap 9 mmol/L BUN 11 (7-17) mg/dL Creatinine 0.70 (0.52-1.04) mg/dL Est GFR (CKD-EPI)AfAm >90 (>60 ml/min/1.73 sqM) Est GFR (CKD-EPI)NonAf >90 (>60 ml/min/1.73 sqM) Glucose 105 H (74-99) mg/dL Calcium 9.0 (8.4-10.2) mg/dL Total Bilirubin 0.4 (0.2-1.3) mg/dL AST 28 (14-36) U/L ALT 39 (9-52) U/L Alkaline Phosphatase 56 (38-126) U/L Troponin I (0.000-0.034) ng/mL Total Protein 7.4 (6.3-8.2) g/dL Albumin 4.0 (3.5-5.0) g/dL Amylase 51 (30-110) U/L Lipase 57 (23-300) U/L Urine Color Urine Appearance (Clear) Urine pH (5.0-8.0) Ur Specific [place] (1.001-1.035) Urine Protein (Negative) Urine Glucose (UA) (Negative) Urine Ketones (Negative) Urine Blood (Negative) Urine Nitrite (Negative) Urine Bilirubin (Negative) Urine Urobilinogen (<2.0) mg/dL Ur Leukocyte Esterase (Negative) Urine RBC (0-5) /hpf Urine WBC (0-5) /hpf Ur Squamous Epith Cells (0-4) /hpf Urine Mucus (None) /hpf Urine HCG, Qual Not Detected (Not Detectd) 05/13/18 05/13/18 Range/Units 10:00 10:00 WBC (3.8-10.6) k/uL RBC (3.80-5.40) m/uL Hgb (11.4-16.0) gm/dL Hct (34.0-46.0) % MCV (80.0-100.0) fL MCH (25.0-35.0) pg MCHC (31.0-37.0) g/dL RDW (11.5-15.5) % Plt Count (150-450) k/uL Neutrophils % % Lymphocytes % % Monocytes % % Eosinophils % % Basophils % % Neutrophils # (1.3-7.7) k/uL Lymphocytes # (1.0-4.8) k/uL Monocytes # (0-1.0) k/uL Eosinophils # (0-0.7) k/uL Basophils # (0-0.2) k/uL Sodium (137-145) mmol/L Potassium (3.5-5.1) mmol/L Chloride (98-107) mmol/L Carbon Dioxide (22-30) mmol/L Anion Gap mmol/L BUN (7-17) mg/dL Creatinine (0.52-1.04) mg/dL Est GFR (CKD-EPI)AfAm (>60 ml/min/1.73 sqM) Est GFR (CKD-EPI)NonAf (>60 ml/min/1.73 sqM) Glucose (74-99) mg/dL Calcium (8.4-10.2) mg/dL Total Bilirubin (0.2-1.3) mg/dL AST (14-36) U/L ALT (9-52) U/L Alkaline Phosphatase (38-126) U/L Troponin I <0.012 (0.000-0.034) ng/mL Total Protein (6.3-8.2) g/dL Albumin (3.5-5.0) g/dL Amylase (30-110) U/L Lipase (23-300) U/L Urine Color Yellow Urine Appearance Cloudy H (Clear) Urine pH 6.0 (5.0-8.0) Ur Specific [place] 1.023 (1.001-1.035) Urine Protein Trace H (Negative) Urine Glucose (UA) Negative (Negative) Urine Ketones Negative (Negative) Urine Blood Large H (Negative) Urine Nitrite Negative (Negative) Urine Bilirubin Negative (Negative) Urine Urobilinogen <2.0 (<2.0) mg/dL Ur Leukocyte Esterase Negative (Negative) Urine RBC >182 H (0-5) /hpf Urine WBC 11 H (0-5) /hpf Ur Squamous Epith Cells 6 H (0-4) /hpf Urine Mucus Rare H (None) /hpf Urine HCG, Qual (Not Detectd) Disposition Clinical Impression: Abdominal pain Disposition: HOME SELF-CARE Condition: Good Instructions: Abdominal Pain (ED) Additional Instructions: Please use medication as discussed. Please follow-up with GI/family doctor in the next 2 days of symptoms have not improved. Please return to emergency room if the symptoms increase or worsen or for any other concerns. Is patient prescribed a controlled substance at d/c from ED?: No Referrals: Shawna Biswas MD [Primary Care Provider] - 1-2 days Time of Disposition: 12:29
[2018-05-13 10:17] LABS: Basophils # (A) 0.1 k/uL (0-0.2); Basophils % (A) 1 %; Eosinophils # (A) 0.3 k/uL (0-0.7); Eosinophils % (A) 4 %; HCT 44.7 % (34.0-46.0); HGB 14.8 gm/dL (11.4-16.0); Lymphocytes # (A) 2.2 k/uL (1.0-4.8); Lymphocytes % (A) 28 %; MCH 28.7 pg (25.0-35.0); MCHC 33.1 g/dL (31.0-37.0); MCV 86.9 fL (80.0-100.0); Monocytes # (A) 0.4 k/uL (0-1.0); Monocytes % (A) 5 %; Neutrophils # (A) 4.7 k/uL (1.3-7.7); Neutrophils % (A) 61 %; Platelet Count 251 k/uL (150-450); RBC 5.14 m/uL (3.80-5.40); RDW 12.8 % (11.5-15.5); WBC 7.7 k/uL (3.8-10.6)
--- NOTE | 2018-05-13 10:28 | XR ---
EXAMINATION TYPE: XR chest 2V DATE OF EXAM: 05/13/2018 COMPARISON: NONE HISTORY: Chest pain TECHNIQUE: Frontal and lateral views of the chest are obtained. FINDINGS: There is no focal air space opacity, pleural effusion, or pneumothorax seen. The cardiac silhouette size is within normal limits. The osseous structures are intact. IMPRESSION: No acute cardiopulmonary process.
[2018-05-13 10:34] LABS: Appearance,Urine Cloudy (Clear); Bilirubin,Urine Negative (Negative); Blood,Urine Large (Negative); Color,Urine Yellow; Glucose,Urine (UA) Negative (Negative); Ketones,Urine Negative (Negative); Leukocyte Esterase,Urine Negative (Negative); Mucus,Urine Rare /hpf; Nitrite,Urine Negative (Negative); Protein,Urine Trace (Negative); RBC,Urine >182 /hpf (0-5); Specific Gravity,Urine 1.023 (1.001-1.035); Squamous Epithelial Cell,Urine 6 /hpf (0-4); Urobilinogen,Urine <2.0 mg/dL (<2.0); WBC,Urine 11 /hpf (0-5)
[2018-05-13 10:46] LABS: ALT 39 U/L (9-52); AST 28 U/L (14-36); Alkaline Phosphatase 56 U/L (38-126); Amylase 51 U/L (30-110); Anion Gap 9 mmol/L; Blood Urea Nitrogen 11 mg/dL (7-17); Carbon Dioxide 22 mmol/L (22-30); Chloride 111 mmol/L (98-107); Glucose 105 mg/dL (74-99); Lipase 57 U/L (23-300); Potassium 4.7 mmol/L (3.5-5.1); Sodium 142 mmol/L (137-145); Total Bilirubin 0.4 mg/dL (0.2-1.3); Total Protein 7.4 g/dL (6.3-8.2)
[2018-05-13] MEDS ORDERED: FAMOTIDINE 20 MG/2 ML VIAL IV STA (11:13)
[2018-05-13] MEDS ORDERED: PANTOPRAZOLE 40 MG/10 ML VIAL IVP STA (11:13)
[2018-05-13] MEDS ORDERED: METOCLOPRAMIDE 5 MG/ML 2 ML VIAL IVP STA (11:17)
[2018-05-13 12:44] VITALS: BP 116/76; PULSE 60; RESP 16
== END 2018-05-13 12:40 | disposition home or self-care (01) ==
LOC: EC 08:59
DX: R10.13 Epigastric pain (principal); R10.11 Right upper quadrant pain; R10.12 Left upper quadrant pain; K20.9 Esophagitis, unspecified; K21.9 Gastro-esophageal reflux disease without esophagitis; F41.9 Anxiety disorder, unspecified; F32.9 Major depressive disorder, single episode, unspecified; Z87.891 Personal history of nicotine dependence; Z79.899 Other long term (current) drug therapy; Z88.1 Allergy status to other antibiotic agents; Z88.2 Allergy status to sulfonamides; Z90.49 Acquired absence of other specified parts of digestive tract
CPT/HCPCS: 36415; 93005; 80053; 82150; 83690; 84484; 85025; 81001; 81025; 71046; 99284; 96374; 96375 ×3; J2765; J2405; C9113

== ENCOUNTER 2018-10-10 18:13 | Emergency (ER) | payer OTHER ==
[2018-10-10] MEDS ORDERED: KETOROLAC 60 MG/2 ML VIAL IM STA (19:12)
--- NOTE | 2018-10-10 19:32 | ED ---
Female Urogenital HPI - General Chief complaint: Urogenital Stated complaint: abdominal pain Time Seen by Provider: 10/10/18 18:32 Source: patient Mode of arrival: ambulatory - History of Present Illness Initial comments: Patient is a 38-year-old female with history of kidney stones is presenting to the emergency department with suprapubic pain. Patient states that the pain st arted today and is progressively gotten worse. Patient states that she had previous case of kidney stones 3 years ago and the pain is very similar to that one. Patient denies fever, headache, nausea, vomiting, diarrhea. Patient reports the pain is a 10 and constant. Patient states that the pain is located mostly in the suprapubic region without any radiation. Patient denies any vaginal discharge, dysuria, hematuria or hematochezia. Patient does report increased urgency. Patient appears to have difficulty finding a comfortable position on the bed. Patient reports no concern of because she has to tubal ligation. Last Menstrual Period: 09/14/18 - Related Data Home Medications Medication Instructions Recorded Confirmed rOPINIRole HCL [Requip] 0.5 mg PO HS 03/06/17 05/13/18 clonazePAM [KlonoPIN] 0.5 mg PO HS 07/31/17 05/13/18 Sertraline [Zoloft] 100 mg PO HS 09/04/17 05/13/18 Previous Rx's Medication Instructions Recorded HYDROcodone/APAP 7.5-325MG [[place] 1 tab PO Q6HR PRN 3 Days #12 tab 10/10/18 7.5-325] Tamsulosin [Flomax] 0.4 mg PO DAILY #7 cap 10/10/18 Allergies Allergy/AdvReac Type Severity Reaction Status Date / Time erythromycin base Allergy Rash/Hives Verified 05/13/18 09:26 sulfamethoxazole Allergy Rash/Hives Verified 05/13/18 09:26 [From Bactrim] trimethoprim [From Bactrim] Allergy Rash/Hives Verified 05/13/18 09:26 Review of Systems ROS Statement: Those systems with pertinent positive or pertinent negative responses have been documented in the HPI. ROS Other: All systems not noted in ROS Statement are negative. Past Medical History Past Medical History: Asthma, GERD/Reflux, Skin Disorder Additional Past Medical History / Comment(s): childhood asthma, heartburn and epigastric pain, eczema, kidney stones History of Any Multi-Drug Resistant Organisms: None Reported Past Surgical History: Section, Cholecystectomy, Orthopedic Surgery, Tonsillectomy, Tubal Ligation Additional Past Surgical History / Comment(s): LEFT KNEE ARTHROSCOPY, CYSTOSCOPY, LITHOTRIPSY Past Anesthesia/Blood Transfusion Reactions: Previous Problems w/ Anesthesia, Postoperative Nausea & Vomiting (PONV) Additional Past Anesthesia/Blood Transfusion Reaction / Comment(s): woke up crying one time Past Psychological History: Anxiety, Depression Smoking Status: Former smoker Past Alcohol Use History: None Reported Past Drug Use History: None Reported, Marijuana - Past Family History Mother Family Medical History: Cancer General Exam Limitations: no limitations, language barrier General appearance: alert, in no apparent distress Head exam: Present: atraumatic, normocephalic, normal inspection Eye exam: Present: normal appearance, PERRL, EOMI Pupils: Present: normal accommodation Neck exam: Present: normal inspection Respiratory exam: Present: normal lung sounds bilaterally Cardiovascular Exam: Present: regular rate, normal rhythm, normal heart sounds GI/Abdominal exam: Present: soft, tenderness (Moderate to severe tenderness generalized suprapubic region.), normal bowel sounds. Absent: rebound Back exam: Present: normal inspection. Absent: tenderness, CVA tenderness (R), CVA tenderness (L) Neurological exam: Present: alert, oriented X3 Psychiatric exam: Present: normal affect, normal mood Skin exam: Present: warm, normal color Course Vital Signs 10/10/18 18:23 Temperature 97.5 F L Pulse Rate 69 Respiratory 18 Rate Blood Pressure 139/87 O2 Sat by Pulse 98 Oximetry Medical Decision Making - Medical Decision Making Patient is a 38-year-old female presenting to the emergency department with suprapubic pain. UA and urine beta Quant were obtained. Patient was given Toradol to control pain. I'm suspecting nephrolithiasis based on history and physical presentation. Patient was sent for CT without contrast with no lares spicion of due to tubal ligation. Her pain wasn't controlled with Toradol so she was given [place]. CT revealed three 3 mm stones in the left kidney and UVJ. UA is negative for hematuria. Patient will be discharged with a 3 day course of [place] 5 and Flomax. Patient advised to follow-up with urology. Patient advised to return to the emergency department if symptoms worsen. Case discussed with physician. - Lab Data Lab Results 10/10/18 10/10/18 Range/Units 19:15 19:15 Urine Color Yellow Urine Appearance Cloudy H (Clear) Urine pH 7.0 (5.0-8.0) Ur Specific [place] 1.023 (1.001-1.035) Urine Protein Trace H (Negative) Urine Glucose (UA) Negative (Negative) Urine Ketones Negative (Negative) Urine Blood Negative (Negative) Urine Nitrite Negative (Negative) Urine Bilirubin Negative (Negative) Urine Urobilinogen <2.0 (<2.0) mg/dL Ur Leukocyte Esterase Trace H (Negative) Urine RBC 1 (0-5) /hpf Urine WBC 2 (0-5) /hpf Ur Squamous Epith Cells 8 H (0-4) /hpf Urine Mucus Rare H (None) /hpf Urine HCG, Qual Not Detected (Not Detectd) Disposition Clinical Impression: Nephrolithiasis Disposition: HOME SELF-CARE Condition: Stable Instructions (If sedation given, give patient instructions): Kidney Stones (ED) Additional Instructions: Please take prescribed medication as directed. Please follow-up with urology. Please return to emergency department if symptoms worsen. Is patient prescribed a controlled substance at d/c from ED?: Yes If prescribed controlled substance>3 days was MAPS reviewed?: Prescribed <3 Days Referrals: Shawna Biswas MD [Primary Care Provider] - 1-2 days
[2018-10-10 19:35] LABS: Appearance,Urine Cloudy (Clear); Bilirubin,Urine Negative (Negative); Blood,Urine Negative (Negative); Color,Urine Yellow; Glucose,Urine (UA) Negative (Negative); Ketones,Urine Negative (Negative); Leukocyte Esterase,Urine Trace (Negative); Mucus,Urine Rare /hpf; Nitrite,Urine Negative (Negative); Protein,Urine Trace (Negative); RBC,Urine 1 /hpf (0-5); Specific Gravity,Urine 1.023 (1.001-1.035); Squamous Epithelial Cell,Urine 8 /hpf (0-4); Urobilinogen,Urine <2.0 mg/dL (<2.0); WBC,Urine 2 /hpf (0-5)
--- NOTE | 2018-10-10 19:53 | CT ---
EXAMINATION TYPE: CT abdomen pelvis wo con DATE OF EXAM: 10/10/2018 COMPARISON: 01/20/2018 HISTORY: 38-year-old female with bilateral flank pain, hx of stones CT DLP: 1392.4 mGycm. Automated exposure control for dose reduction was used. TECHNIQUE: Contiguous axial scanning of the abdomen and pelvis without IV contrast. Coronal and sagit laura reconstructions performed. FINDINGS: Heart normal size without pericardial effusion. Some minimal subpleural groundglass densities probabl y represent areas of atelectasis. No pleural effusion. Liver enlarged at 21.7 cm. Slightly low attenuation of the hepatic parenchyma. Gallbladder not visual ized, possibly surgically absent. Noncontrast appearance of the adrenal glands and kidney, spleen, and pancreas show no gross abnormali ty. A few punctate 3 mm nonobstructive left renal calculi. No hydronephrosis on either side However, there is a punctate 3 mm calcification in the region of the left UVJ not seen on the patient 's 01/20/2018 exam. A tiny UVJ calculus is not excluded. No dilated small bowel, free fluid, or free air. No mesenteric or retroperitoneal lymphadenopathy. Mild stool burden. No pericolonic inflammatory change. Bladder partially distended. Uterus and ovaries are visualized. Pelvic phlebolith. No abnormal fluid collection in the pelvis. A few prominent but nonenlarged right inguinal lymph nodes measuring up to 1.2 cm short axis. Bones: Left L5 hemisacralization. There is some degenerative changes at the assimilation joint. There is also some degenerative change above at L4-L5 with moderate left neuroforaminal stenosis. IMPRESSION: 1. Findings suspicious for a 3 mm left UVJ calculus. No significant obstructive uropathy identified. 2. A few additional 3 mm nonobstructive left renal calculi. 3. Hepatomegaly (21.7 cm) with underlying fatty infiltration of the liver. 4. Degenerative changes at the left L5 assimilation joint with the sacrum
[2018-10-10] MEDS ORDERED: HYDROcodone/APAP 5-325MG 1 EACH TAB PO STA (20:04)
[2018-10-10] MEDS ORDERED: HYDROcodone/APAP 10-325MG 1 EACH TAB PO ONE (20:27)
[2018-10-10 20:54] VITALS: BP 130/85; PULSE 77; RESP 16; TEMP 97.9
== END 2018-10-10 21:01 | disposition home or self-care (01) ==
LOC: EC 18:13
DX: N20.0 Calculus of kidney (principal); F32.9 Major depressive disorder, single episode, unspecified; F41.9 Anxiety disorder, unspecified; Z87.891 Personal history of nicotine dependence; Z79.899 Other long term (current) drug therapy; Z88.1 Allergy status to other antibiotic agents; Z88.2 Allergy status to sulfonamides; Z53.8 Procedure and treatment not carried out for other reasons
CPT/HCPCS: 81001; 81025; 74176; 99284; 96372; J1885

== ENCOUNTER 2019-01-09 20:50 | Emergency (ER) | payer OTHER ==
[2019-01-09] MEDS ORDERED: MORPHINE SULFATE 4 MG/ML SYRINGE IV STA ×2 (21:23→23:35)
[2019-01-09] MEDS ORDERED: SODIUM CHLORIDE 0.9% 1,000 ML IV STA (21:24)
[2019-01-09 21:31] LABS: Appearance,Urine Cloudy (Clear); Bacteria,Urine Occasional /hpf; Bilirubin,Urine Negative (Negative); Blood,Urine Trace (Negative); Color,Urine Yellow; Glucose,Urine (UA) Negative (Negative); Hyaline Casts,Urine 1 /lpf (0-2); Ketones,Urine Negative (Negative); Leukocyte Esterase,Urine Moderate (Negative); Mucus,Urine Rare /hpf; Nitrite,Urine Negative (Negative); PH, Urine 5.5 (5.0-8.0); Protein,Urine Trace (Negative); RBC,Urine 4 /hpf (0-5); Specific Gravity,Urine 1.019 (1.001-1.035); Squamous Epithelial Cell,Urine 27 /hpf (0-4); Urobilinogen,Urine <2.0 mg/dL (<2.0); WBC,Urine 18 /hpf (0-5)
[2019-01-09 21:42] LABS: Basophils # (A) 0.1 k/uL (0-0.2); Basophils % (A) 1 %; Eosinophils # (A) 0.3 k/uL (0-0.7); Eosinophils % (A) 3 %; HCT 43.4 % (34.0-46.0); HGB 14.1 gm/dL (11.4-16.0); Lymphocytes # (A) 3.2 k/uL (1.0-4.8); Lymphocytes % (A) 35 %; MCH 28.2 pg (25.0-35.0); MCHC 32.6 g/dL (31.0-37.0); MCV 86.7 fL (80.0-100.0); Mean Platelet Volume 7.2; Monocytes # (A) 0.5 k/uL (0-1.0); Monocytes % (A) 5 %; Neutrophils # (A) 5.1 k/uL (1.3-7.7); Neutrophils % (A) 55 %; Platelet Count 268 k/uL (150-450); RBC 5.01 m/uL (3.80-5.40); WBC 9.3 k/uL (3.8-10.6)
[2019-01-09] MEDS ORDERED: ONDANSETRON 4 MG/2 ML VIAL IVP STA (21:47)
[2019-01-09 21:50] LABS: ALT 47 U/L (9-52); AST 34 U/L (14-36); African American GFR (CKD) >90 (>60 ml/min/1.73 sqM); Alkaline Phosphatase 63 U/L (38-126); Anion Gap 10 mmol/L; Blood Urea Nitrogen 10 mg/dL (7-17); Calcium 8.9 mg/dL (8.4-10.2); Carbon Dioxide 23 mmol/L (22-30); Chloride 109 mmol/L (98-107); Glucose 123 mg/dL (74-99); Potassium 3.4 mmol/L (3.5-5.1); Sodium 142 mmol/L (137-145); Total Bilirubin 0.2 mg/dL (0.2-1.3)
[2019-01-09] MEDS ORDERED: KETOROLAC 30 MG/ML 1 ML VIAL IVP STA (22:37)
--- NOTE | 2019-01-09 22:39 | US ---
EXAM: US Retroperitoneal Limited, Renal CLINICAL HISTORY: ITS.REASON US Reason: Pain TECHNIQUE: Real-time ultrasound of the retroperitoneum (limited) with image documentation. COMPARISON: 10/10/18 CT abdomen FINDINGS: Right kidney: 10 cm. No stones. Echogenic foci. No solid mass. No hydronephrosis. Left kidney: 12 cm the No stones. Echogenic foci. No solid mass. No hydronephrosis. Bladder: Unremarkable. No jets are seen. IMPRESSION: Nonobstructive stones bilaterally. No hydronephrosis.
--- NOTE | 2019-01-09 23:19 | ED ---
General Adult HPI - General Chief complaint: Urogenital Stated complaint: Flank pain Time Seen by Provider: 01/09/19 21:05 Source: patient, RN notes reviewed, old records reviewed Mode of arrival: ambulatory Limitations: no limitations - History of Present Illness Initial comments: 38-year-old female patient presents to ED with 3 days of right flank pain. Patient reports that she had kidney stones approximately 3 months ago and this feels identical. Reports nausea without emesis. Denies any complaints at this time. Patient states she cannot be secondary to tubal ligation. Systemic: Pt denies fatigue, fever/chills, rash. Pt denies weakness, night sweats, weight loss. Neuro: Pt denies headache, visual disturbances, syncope or pre-syncope. HEENT: Pt denies ocular discharge or irritation, otalgia, rhinorrhea, pharyngitis or notable lymphadenopathy. Cardiopulmonary: Pt denies chest pain, SOB, heart palpitations, dyspnea on exertion. Abdominal/GI: Pt denies abdominal pain, n/v/d. : Pt denies dysuria, burning w/ urination, frequency/urgency. Denies new onset urinary or bowel incontinence. MSK: Pt denies myalgia, loss of strength or function in extremities. Neuro: Pt denies new onset weakness, paresthesias. - Related Data Home Medications Medication Instructions Recorded Confirmed rOPINIRole HCL [Requip] 0.5 mg PO HS 03/06/17 05/13/18 clonazePAM [KlonoPIN] 0.5 mg PO HS 07/31/17 05/13/18 Sertraline [Zoloft] 100 mg PO HS 09/04/17 05/13/18 Previous Rx's Medication Instructions Recorded HYDROcodone/APAP 7.5-325MG [[place] 1 tab PO Q6HR PRN 3 Days #12 tab 10/10/18 7.5-325] Tamsulosin [Flomax] 0.4 mg PO DAILY #7 cap 10/10/18 Tamsulosin [Flomax] 0.4 mg PO DAILY #10 cap 01/09/19 Allergies Allergy/AdvReac Type Severity Reaction Status Date / Time erythromycin base Allergy Rash/Hives Verified 01/09/19 21:00 sulfamethoxazole Allergy Rash/Hives Verified 01/09/19 21:00 [From Bactrim] trimethoprim [From Bactrim] Allergy Rash/Hives Verified 01/09/19 21:00 Review of Systems ROS Statement: Those systems with pertinent positive or pertinent negative responses have been documented in the HPI. ROS Other: All systems not noted in ROS Statement are negative. Past Medical History Past Medical History: Asthma, GERD/Reflux, Skin Disorder Additional Past Medical History / Comment(s): childhood asthma, heartburn and epigastric pain, eczema, kidney stones History of Any Multi-Drug Resistant Organisms: None Reported Past Surgical History: Section, Cholecystectomy, Orthopedic Surgery, Tonsillectomy, Tubal Ligation Additional Past Surgical History / Comment(s): LEFT KNEE ARTHROSCOPY, CYSTOSCOPY, LITHOTRIPSY Past Anesthesia/Blood Transfusion Reactions: Previous Problems w/ Anesthesia, Postoperative Nausea & Vomiting (PONV) Additional Past Anesthesia/Blood Transfusion Reaction / Comment(s): woke up crying one time Past Psychological History: Anxiety, Depression Smoking Status: Former smoker Past Alcohol Use History: None Reported Past Drug Use History: None Reported, Marijuana - Past Family History Mother Family Medical History: Cancer General Exam - General Exam Comments Initial Comments: Constitutional: NAD, AOX3, Pt has pleasant affect. HEENT: NC/AT, trachea midline, neck supple, no lymphadenopathy. Posterior pharynx non erythematous, without exudates. External ears appear normal, without discharge. Mucous membranes moist. Eyes PERRLA, EOM intact. There is no scleral icterus. No pallor noted. Cardiopulmonary: RRR, no murmurs, rubs or gallops, no JVD noted. Lungs CTAB in anterior and posterior wang. No peripheral edema. Abdominal exam: Abdomen soft and non-distended. Abdomen non-tender to palpation in all 4 quadrants. Bowel sounds active in LLQ. No hepatosplenomegaly. No ecchymosis no CVA tenderness. Neuro: CN II-XII grossly intact. No nuchal rigidity. No raccon eyes, no corrales sign, no hemotympanum. No cervical spinal tenderness. MSK: No posterior calf tenderness bilaterally, homans sign negative bilaterally. Posterior tibialis and radial pulse +2 bilaterally. Sensation intact in upper and lower extremities. Full active ROM in upper and lower extremities, 5/5 stregnth. Limitations: no limitations Course Vital Signs 01/09/19 21:00 Temperature 97.3 F L Pulse Rate 68 Respiratory 16 Rate Blood Pressure 144/83 O2 Sat by Pulse 98 Oximetry Medical Decision Making - Medical Decision Making 38 year old female patient presents to ED with right flank pain 3 days, states it feels identical to kidney stones she had approximately 3 months ago. Denies any complaints. Patient vital signs stable, afebrile. Physical exam displayed no acute pathology. Laboratory investigations noncompressive, urine contaminated. Tender renals displayed no hydronephrosis, nonobstructive stones. Patient patient's clinical history she'll be prescribed Flomax and will follow up with urology. Patient declined CT due to radiation burning. Case discussed with Dr. Rosario. - Lab Data Result diagrams: 01/09/19 21:28 01/09/19 21:28 Lab Results 01/09/19 01/09/19 01/09/19 Range/Units 21:12 21:12 21:28 WBC 9.3 (3.8-10.6) k/uL RBC 5.01 (3.80-5.40) m/uL Hgb 14.1 (11.4-16.0) gm/dL Hct 43.4 (34.0-46.0) % MCV 86.7 (80.0-100.0) fL MCH 28.2 (25.0-35.0) pg MCHC 32.6 (31.0-37.0) g/dL RDW 15.0 (11.5-15.5) % Plt Count 268 (150-450) k/uL Neutrophils % 55 % Lymphocytes % 35 % Monocytes % 5 % Eosinophils % 3 % Basophils % 1 % Neutrophils # 5.1 (1.3-7.7) k/uL Lymphocytes # 3.2 (1.0-4.8) k/uL Monocytes # 0.5 (0-1.0) k/uL Eosinophils # 0.3 (0-0.7) k/uL Basophils # 0.1 (0-0.2) k/uL Sodium (137-145) mmol/L Potassium (3.5-5.1) mmol/L Chloride (98-107) mmol/L Carbon Dioxide (22-30) mmol/L Anion Gap mmol/L BUN (7-17) mg/dL Creatinine (0.52-1.04) mg/dL Est GFR (CKD-EPI)AfAm (>60 ml/min/1.73 sqM) Est GFR (CKD-EPI)NonAf (>60 ml/min/1.73 sqM) Glucose (74-99) mg/dL Calcium (8.4-10.2) mg/dL Total Bilirubin (0.2-1.3) mg/dL AST (14-36) U/L ALT (9-52) U/L Alkaline Phosphatase (38-126) U/L Total Protein (6.3-8.2) g/dL Albumin (3.5-5.0) g/dL Urine Color Yellow Urine Appearance Cloudy H (Clear) Urine pH 5.5 (5.0-8.0) Ur Specific [place] 1.019 (1.001-1.035) Urine Protein Trace H (Negative) Urine Glucose (UA) Negative (Negative) Urine Ketones Negative (Negative) Urine Blood Trace H (Negative) Urine Nitrite Negative (Negative) Urine Bilirubin Negative (Negative) Urine Urobilinogen <2.0 (<2.0) mg/dL Ur Leukocyte Esterase Moderate H (Negative) Urine RBC 4 (0-5) /hpf Urine WBC 18 H (0-5) /hpf Ur Squamous Epith Cells 27 H (0-4) /hpf Urine Bacteria Occasional H (None) /hpf Hyaline Casts 1 (0-2) /lpf Urine Mucus Rare H (None) /hpf Urine HCG, Qual Not Detected (Not Detectd) 01/09/19 Range/Units 21:28 WBC (3.8-10.6) k/uL RBC (3.80-5.40) m/uL Hgb (11.4-16.0) gm/dL Hct (34.0-46.0) % MCV (80.0-100.0) fL MCH (25.0-35.0) pg MCHC (31.0-37.0) g/dL RDW (11.5-15.5) % Plt Count (150-450) k/uL Neutrophils % % Lymphocytes % % Monocytes % % Eosinophils % % Basophils % % Neutrophils # (1.3-7.7) k/uL Lymphocytes # (1.0-4.8) k/uL Monocytes # (0-1.0) k/uL Eosinophils # (0-0.7) k/uL Basophils # (0-0.2) k/uL Sodium 142 (137-145) mmol/L Potassium 3.4 L (3.5-5.1) mmol/L Chloride 109 H (98-107) mmol/L Carbon Dioxide 23 (22-30) mmol/L Anion Gap 10 mmol/L BUN 10 (7-17) mg/dL Creatinine 0.68 (0.52-1.04) mg/dL Est GFR (CKD-EPI)AfAm >90 (>60 ml/min/1.73 sqM) Est GFR (CKD-EPI)NonAf >90 (>60 ml/min/1.73 sqM) Glucose 123 H (74-99) mg/dL Calcium 8.9 (8.4-10.2) mg/dL Total Bilirubin 0.2 (0.2-1.3) mg/dL AST 34 (14-36) U/L ALT 47 (9-52) U/L Alkaline Phosphatase 63 (38-126) U/L Total Protein 7.0 (6.3-8.2) g/dL Albumin 4.0 (3.5-5.0) g/dL Urine Color Urine Appearance (Clear) Urine pH (5.0-8.0) Ur Specific [place] (1.001-1.035) Urine Protein (Negative) Urine Glucose (UA) (Negative) Urine Ketones (Negative) Urine Blood (Negative) Urine Nitrite (Negative) Urine Bilirubin (Negative) Urine Urobilinogen (<2.0) mg/dL Ur Leukocyte Esterase (Negative) Urine RBC (0-5) /hpf Urine WBC (0-5) /hpf Ur Squamous Epith Cells (0-4) /hpf Urine Bacteria (None) /hpf Hyaline Casts (0-2) /lpf Urine Mucus (None) /hpf Urine HCG, Qual (Not Detectd) Disposition Clinical Impression: Renal colic Disposition: HOME SELF-CARE Condition: Stable Instructions (If sedation given, give patient instructions): Kidney Stones (ED), Flank Pain (ED) Additional Instructions: Patient to adhere to previously discussed treatment plan and will take medication(s) as directed. Patient to follow up with PCP in 1-2 days. Patient to return to ED if symptoms do not improve. Follow-up with primary care provider and urologist tomorrow. Return to ER condition worsens. Prescriptions: Tamsulosin [Flomax] 0.4 mg PO DAILY #10 cap Is patient prescribed a controlled substance at d/c from ED?: No Referrals: Shawna Biswas MD [Primary Care Provider] - 1-2 days Luis Antonio Cullen MD [STAFF PHYSICIAN] - 1-2 days
[2019-01-09] MEDS ORDERED: ACET/COD 300 MG/30 MG STARTER PACK 6 TAB BTL PO STA (23:41)
[2019-01-10 00:04] VITALS: BP 124/68; PULSE 63; RESP 18; TEMP 98.8
== END 2019-01-10 00:11 | disposition home or self-care (01) ==
LOC: EC 20:50
DX: N20.0 Calculus of kidney (principal); F32.9 Major depressive disorder, single episode, unspecified; F41.9 Anxiety disorder, unspecified; Z87.891 Personal history of nicotine dependence; Z88.1 Allergy status to other antibiotic agents; Z88.2 Allergy status to sulfonamides; Z79.899 Other long term (current) drug therapy; Z90.49 Acquired absence of other specified parts of digestive tract; Z98.51 Tubal ligation status; Z98.890 Other specified postprocedural states
CPT/HCPCS: 99285; 96374; 96375 ×2; 96376; 96361; 36415; 80053; 85025; 81001; 81025; 76770; J2270; J2405; J1885

== ENCOUNTER 2019-08-19 13:41 | Emergency (ER) | payer OTHER ==
[2019-08-19 13:45] VITALS: BP 135/85; RESP 18; TEMP 98.8
[2019-08-19] MEDS ORDERED: predniSONE 50 MG TAB PO STA (14:12)
[2019-08-19] MEDS ORDERED: FAMOTIDINE 20 MG TAB PO STA (14:12)
[2019-08-19] MEDS ORDERED: IPRATROPIUM-ALBUTEROL 3 ML NEB INHALATION STA (14:13)
--- NOTE | 2019-08-19 14:18 | ED ---
General Adult HPI - General Chief complaint: Upper Respiratory Infection Stated complaint: Cough, Sore Throat Time Seen by Provider: 08/19/19 13:50 Source: patient Mode of arrival: ambulatory Limitations: no limitations - History of Present Illness Initial comments: Patient is a 39-year-old female presenting to emergency for with chief complaint of cough and fever. Patient states she developed a cough that is nonproductive in nature but she days ago. Patient also reports upper respiratory symptoms such as bilateral ear fullness and rhinorrhea. Does report occasional sore throat after coughing fits. Denies any nausea vomiting diarrhea. States she had a fever at home but never actually obtained a temperature. Denies any history of asthma or smoking. Denies taking any other medication to relieve the symptoms. Denies any chest pain but does report dyspnea on exertion. Denies any unilateral leg swelling. Denies hormone replacement. Denies previous history of DVT or PE. Denies any current melena cancers or chemotherapy is. Denies unilateral leg swelling. Denies any hemoptysis. - Related Data Home Medications Medication Instructions Recorded Confirmed rOPINIRole HCL [Requip] 0.5 mg PO HS 03/06/17 05/13/18 clonazePAM [KlonoPIN] 0.5 mg PO HS 07/31/17 05/13/18 Sertraline [Zoloft] 100 mg PO HS 09/04/17 05/13/18 Previous Rx's Medication Instructions Recorded HYDROcodone/APAP 7.5-325MG [[place] 1 tab PO Q6HR PRN 3 Days #12 tab 10/10/18 7.5-325] Tamsulosin [Flomax] 0.4 mg PO DAILY #7 cap 10/10/18 Tamsulosin [Flomax] 0.4 mg PO DAILY #10 cap 01/09/19 Albuterol Inhaler [Ventolin Hfa 1 - 2 puff INHALATION RT-Q6H PRN 08/19/19 Inhaler] #1 inhaler Azithromycin [Zithromax Z-pack] 0 mg PO DIRECTED #1 pack 08/19/19 Dextromethorphan Polistirex 30 mg PO Q6HR PRN #1 bottle 08/19/19 [Delsym] predniSONE 50 mg PO DAILY #5 tab 08/19/19 Allergies Allergy/AdvReac Type Severity Reaction Status Date / Time erythromycin base Allergy Rash/Hives Verified 08/19/19 13:45 sulfamethoxazole Allergy Rash/Hives Verified 08/19/19 13:45 [From Bactrim] trimethoprim [From Bactrim] Allergy Rash/Hives Verified 08/19/19 13:45 Review of Systems ROS Statement: Those systems with pertinent positive or pertinent negative responses have been documented in the HPI. ROS Other: All systems not noted in ROS Statement are negative. Past Medical History Past Medical History: Asthma, GERD/Reflux, Skin Disorder Additional Past Medical History / Comment(s): childhood asthma, heartburn and epigastric pain, eczema, kidney stones History of Any Multi-Drug Resistant Organisms: None Reported Past Surgical History: Section, Cholecystectomy, Orthopedic Surgery, Tonsillectomy, Tubal Ligation Additional Past Surgical History / Comment(s): LEFT KNEE ARTHROSCOPY, CYSTOSCOPY, LITHOTRIPSY Past Anesthesia/Blood Transfusion Reactions: Previous Problems w/ Anesthesia, Postoperative Nausea & Vomiting (PONV) Additional Past Anesthesia/Blood Transfusion Reaction / Comment(s): woke up crying one time Past Psychological History: Anxiety, Depression Smoking Status: Former smoker Past Alcohol Use History: None Reported Past Drug Use History: Marijuana - Past Family History Mother Family Medical History: Cancer General Exam Limitations: no limitations General appearance: alert, in no apparent distress Head exam: Present: atraumatic, normocephalic, normal inspection Eye exam: Present: normal appearance, PERRL Pupils: Present: normal accommodation ENT exam: Present: normal exam Neck exam: Present: normal inspection, full ROM Respiratory exam: Present: wheezes (Bilateral) Cardiovascular Exam: Present: regular rate, normal rhythm, normal heart sounds Extremities exam: Present: normal inspection, full ROM Back exam: Present: normal inspection, full ROM Neurological exam: Present: alert, oriented X3 Psychiatric exam: Present: normal affect, normal mood Skin exam: Present: warm, dry, intact, normal color Course Vital Signs 08/19/19 08/19/19 08/19/19 13:42 13:51 14:32 Temperature 98.8 F Pulse Rate 80 76 Respiratory 18 18 Rate Blood Pressure 135/85 O2 Sat by Pulse 98 Oximetry 08/19/19 14:39 Temperature Pulse Rate 80 Respiratory Rate Blood Pressure O2 Sat by Pulse Oximetry Medical Decision Making - Medical Decision Making Patient is a 39-year-old female presenting to emergency Department with a chief complaint of cough with fever. Patient reported fever at home. Patient afebrile in the ED. Patient does have bilateral wheezing. Patient given steroids and DuoNeb treatment. Reevaluation patient reports some resolution in symptoms. She is still wheezing, however it has decreased in severity. Patient is perc negative. Chest x-ray was unremarkable. Influenza negative. No exposure to coronavirus confrontations. Patient will be discharged with an antitussive, albuterol and prednisone. Also pr advised to follow with primary care. prescribed azithromycin and advised the patient to use the medication based on watching wait basis. I suspect the patient has bronchitis. No history of asthma or smoking. Return parameters thoroughly discussed with patient was understanding and agreeable. Case discussed with physician. - Lab Data Lab Results 08/19/19 Range/Units 14:19 Influenza Type A RNA Not Detected (Not Detectd) Influenza Type B (PCR) Not Detected (Not Detectd) Disposition Clinical Impression: Bronchitis, Wheezing Disposition: HOME SELF-CARE Condition: Good Instructions (If sedation given, give patient instructions): Acute Bronchitis (ED) Additional Instructions: Take prescribed medication as directed. Return to emergency department if symptoms worsen. Follow-up with primary care. Alternate between Tylenol and Motrin if she developed a fever. Prescriptions: Dextromethorphan Polistirex [Delsym] 30 mg PO Q6HR PRN #1 bottle PRN Reason: Cough predniSONE 50 mg PO DAILY #5 tab Albuterol Inhaler [Ventolin Hfa Inhaler] 1 - 2 puff INHALATION RT-Q6H PRN #1 inhaler PRN Reason: Wheezing Azithromycin [Zithromax Z-pack] 0 mg PO DIRECTED #1 pack Is patient prescribed a controlled substance at d/c from ED?: No Referrals: Shawna Biswas MD [Primary Care Provider] - 1-2 days Time of Disposition: 15:14
[2019-08-19 14:40] VITALS: PULSE 80
--- NOTE | 2019-08-19 14:41 | XR ---
EXAMINATION TYPE: XR chest 2V DATE OF EXAM: 08/19/2019 COMPARISON: 05/13/18 HISTORY: Cough, congestion, and fever TECHNIQUE: Frontal and lateral views of the chest are obtained. FINDINGS: There is no focal air space opacity, pleural effusion, or pneumothorax seen. The cardiac silhouette size is within normal limits. The osseous structures are intact. IMPRESSION: No acute cardiopulmonary process.
== END 2019-08-19 15:20 | disposition home or self-care (01) ==
LOC: EC 13:41
DX: J40 Bronchitis, not specified as acute or chronic (principal); F41.9 Anxiety disorder, unspecified; F32.9 Major depressive disorder, single episode, unspecified; Z79.899 Other long term (current) drug therapy; Z87.891 Personal history of nicotine dependence; Z88.1 Allergy status to other antibiotic agents; Z88.2 Allergy status to sulfonamides
CPT/HCPCS: 94640; 87502; 71046; 99284; J7512

== ENCOUNTER → 2019-12-01 | Outpatient (CLI) | payer OTHER ==
--- NOTE | 2019-12-01 16:31 | XR ---
Left foot HISTORY: Left foot pain 3 views the left foot Bone mineralization, joint spaces and alignment are maintained. There is enthesophyte at insertion of the Achilles tendon. Some degenerative change present at the intertarsal joints. IMPRESSION: No fracture or dislocation.
== END | disposition home or self-care (01) ==
LOC: RADXRMAIN 16:05
PROVIDERS: ATTEND Family Medicine
DX: M79.672 Pain in left foot (principal)

== ENCOUNTER 2020-05-28 02:43 | Emergency (ER) | payer OTHER ==
[2020-05-28 02:51] VITALS: BP 139/82; PULSE 72; RESP 18; TEMP 98.1
[2020-05-28] MEDS ORDERED: KETOROLAC 15 MG/ML 1 ML VIAL IVP STA (03:10)
[2020-05-28] MEDS ORDERED: HYDROmorphone 0.5 MG/0.5 ML SYRINGE IVP STA (03:11)
--- NOTE | 2020-05-28 03:15 | ED ---
Abdominal Pain HPI - General Chief Complaint: Abdominal Pain Stated Complaint: Left flank pain Time Seen by Provider: 05/28/20 03:02 Source: patient Mode of arrival: ambulatory Limitations: no limitations - History of Present Illness Initial Comments: This patient is 39-year-old woman with history of kidney stones who complains of having left flank pain. She states she was having some pinching there are approximately a week ago. She developed emre pain starting about 24 hours ago. She states she also feels like she is having urinating more frequently. She denies any dysuria or hematuria. No other abdominal symptoms. Currently having menses. MD Complaint: flank pain -: days(s) Location: L flank Radiation: LLQ Migration to: no migration Severity: severe Quality: sharp Consistency: constant Improves With: nothing Worsens With: nothing Associated Symptoms: denies other symptoms - Related Data LMP (females 10-50): this week Patient : No Home Medications Medication Instructions Recorded Confirmed rOPINIRole HCL [Requip] 0.5 mg PO HS 03/06/17 05/13/18 clonazePAM [KlonoPIN] 0.5 mg PO HS 07/31/17 05/13/18 Sertraline [Zoloft] 100 mg PO HS 09/04/17 05/13/18 Previous Rx's Medication Instructions Recorded HYDROcodone/APAP 7.5-325MG [[place] 1 tab PO Q6HR PRN 3 Days #12 tab 10/10/18 7.5-325] Tamsulosin [Flomax] 0.4 mg PO DAILY #7 cap 10/10/18 Tamsulosin [Flomax] 0.4 mg PO DAILY #10 cap 01/09/19 Albuterol Inhaler (Mhu) [Ventolin 1 - 2 puff INHALATION RT-Q6H PRN 08/19/19 Hfa Inhaler (Mhu)] #1 inhaler Azithromycin [Zithromax Z-pack (6 0 mg PO DIRECTED #1 pack 08/19/19 tabs)] Dextromethorphan Polistirex 30 mg PO Q6HR PRN #1 bottle 08/19/19 [Delsym] predniSONE 50 mg PO DAILY #5 tab 08/19/19 Dicyclomine [Bentyl] 20 mg PO QID #15 tablet 05/28/20 Ondansetron Odt [Zofran ODT] 4 mg PO Q8HR PRN #10 tab 05/28/20 Allergies Allergy/AdvReac Type Severity Reaction Status Date / Time erythromycin base Allergy Rash/Hives Verified 05/28/20 02:50 sulfamethoxazole Allergy Rash/Hives Verified 05/28/20 02:50 [From Bactrim] trimethoprim [From Bactrim] Allergy Rash/Hives Verified 05/28/20 02:50 Review of Systems ROS Statement: Those systems with pertinent positive or pertinent negative responses have been documented in the HPI. ROS Other: All systems not noted in ROS Statement are negative. Constitutional: Denies: fever, chills Respiratory: Denies: cough, dyspnea Cardiovascular: Denies: chest pain, palpitations, edema Gastrointestinal: Reports: abdominal pain. Denies: nausea, vomiting, diarrhea, constipation Genitourinary: Reports: frequency. Denies: urgency, dysuria, hematuria, discharge, abnormal menses Musculoskeletal: Denies: back pain Skin: Denies: rash Neurological: Denies: headache, weakness, numbness Past Medical History Past Medical History: Asthma, GERD/Reflux, Skin Disorder Additional Past Medical History / Comment(s): childhood asthma, heartburn and epigastric pain, eczema, kidney stones History of Any Multi-Drug Resistant Organisms: None Reported Past Surgical History: Section, Cholecystectomy, Orthopedic Surgery, Tonsillectomy, Tubal Ligation Additional Past Surgical History / Comment(s): LEFT KNEE ARTHROSCOPY, CYSTOSCOPY, LITHOTRIPSY Past Anesthesia/Blood Transfusion Reactions: Previous Problems w/ Anesthesia, Postoperative Nausea & Vomiting (PONV) Additional Past Anesthesia/Blood Transfusion Reaction / Comment(s): woke up crying one time Past Psychological History: Anxiety, Depression Smoking Status: Never smoker Past Alcohol Use History: None Reported Past Drug Use History: Marijuana - Past Family History Mother Family Medical History: Cancer General Exam Limitations: no limitations General appearance: alert, in no apparent distress Head exam: Present: atraumatic, normocephalic Eye exam: Present: normal appearance. Absent: scleral icterus, conjunctival injection Neck exam: Present: normal inspection Respiratory exam: Present: normal lung sounds bilaterally. Absent: respiratory distress, wheezes, rales, rhonchi, stridor Cardiovascular Exam: Present: regular rate, normal rhythm, normal heart sounds. Absent: systolic murmur, diastolic murmur, rubs, gallop GI/Abdominal exam: Present: soft. Absent: distended, tenderness, guarding, rebound, rigid, mass Extremities exam: Present: normal inspection, normal capillary refill. Absent: pedal edema, calf tenderness Back exam: Present: normal inspection. Absent: CVA tenderness (R), CVA tenderness (L) Neurological exam: Present: alert Skin exam: Present: warm, dry, intact, normal color. Absent: rash Course Vital Signs 05/28/20 02:46 Temperature 98.1 F Pulse Rate 72 Respiratory 18 Rate Blood Pressure 139/82 O2 Sat by Pulse 97 Oximetry Medical Decision Making - Medical Decision Making This patient is 39-year-old woman presenting with flank and left abdominal pain. She initially had a feeling that was identical to previous stone pain but then stated that the character is different CT added. There is is not a definite etiology from the CT, the patient feeling better following analgesic medicine. Will have patient follow with her physician and possibly gastroenterology . Consider colonoscopy. Appropriate further care and follow-up discussed as well as return parameters - Lab Data Result diagrams: 05/28/20 03:11 05/28/20 03:11 Lab Results 05/28/20 05/28/20 05/28/20 Range/Units 03:11 03:11 03:12 WBC 10.5 (3.8-10.6) k/uL RBC 4.81 (3.80-5.40) m/uL Hgb 13.9 (11.4-16.0) gm/dL Hct 41.0 (34.0-46.0) % MCV 85.2 (80.0-100.0) fL MCH 29.0 (25.0-35.0) pg MCHC 34.0 (31.0-37.0) g/dL RDW 13.3 (11.5-15.5) % Plt Count 252 (150-450) k/uL MPV 7.2 Neutrophils % 62 % Lymphocytes % 27 % Monocytes % 6 % Eosinophils % 3 % Basophils % 1 % Neutrophils # 6.5 (1.3-7.7) k/uL Lymphocytes # 2.9 (1.0-4.8) k/uL Monocytes # 0.6 (0-1.0) k/uL Eosinophils # 0.3 (0-0.7) k/uL Basophils # 0.1 (0-0.2) k/uL Sodium 138 (137-145) mmol/L Potassium 4.2 (3.5-5.1) mmol/L Chloride 107 (98-107) mmol/L Carbon Dioxide 25 (22-30) mmol/L Anion Gap 6 mmol/L BUN 15 (7-17) mg/dL Creatinine 0.71 (0.52-1.04) mg/dL Est GFR (CKD-EPI)AfAm >90 (>60 ml/min/1.73 sqM) Est GFR (CKD-EPI)NonAf >90 (>60 ml/min/1.73 sqM) Glucose 126 H (74-99) mg/dL Calcium 9.0 (8.4-10.2) mg/dL Total Bilirubin 0.3 (0.2-1.3) mg/dL AST 24 (14-36) U/L ALT 38 H (4-34) U/L Alkaline Phosphatase 64 (38-126) U/L Total Protein 6.7 (6.3-8.2) g/dL Albumin 3.6 (3.5-5.0) g/dL Amylase 60 (30-110) U/L Lipase 146 (23-300) U/L Urine Color Light Yellow Urine Appearance Clear (Clear) Urine pH 6.5 (5.0-8.0) Ur Specific [place] 1.016 (1.001-1.035) Urine Protein Negative (Negative) Urine Glucose (UA) Negative (Negative) Urine Ketones Negative (Negative) Urine Blood Moderate H (Negative) Urine Nitrite Negative (Negative) Urine Bilirubin Negative (Negative) Urine Urobilinogen <2.0 (<2.0) mg/dL Ur Leukocyte Esterase Negative (Negative) Urine RBC 46 H (0-5) /hpf Urine WBC <1 (0-5) /hpf Urine Mucus Rare H (None) /hpf Urine HCG, Qual (Not Detectd) 05/28/20 Range/Units 03:12 WBC (3.8-10.6) k/uL RBC (3.80-5.40) m/uL Hgb (11.4-16.0) gm/dL Hct (34.0-46.0) % MCV (80.0-100.0) fL MCH (25.0-35.0) pg MCHC (31.0-37.0) g/dL RDW (11.5-15.5) % Plt Count (150-450) k/uL MPV Neutrophils % % Lymphocytes % % Monocytes % % Eosinophils % % Basophils % % Neutrophils # (1.3-7.7) k/uL Lymphocytes # (1.0-4.8) k/uL Monocytes # (0-1.0) k/uL Eosinophils # (0-0.7) k/uL Basophils # (0-0.2) k/uL Sodium (137-145) mmol/L Potassium (3.5-5.1) mmol/L Chloride (98-107) mmol/L Carbon Dioxide (22-30) mmol/L Anion Gap mmol/L BUN (7-17) mg/dL Creatinine (0.52-1.04) mg/dL Est GFR (CKD-EPI)AfAm (>60 ml/min/1.73 sqM) Est GFR (CKD-EPI)NonAf (>60 ml/min/1.73 sqM) Glucose (74-99) mg/dL Calcium (8.4-10.2) mg/dL Total Bilirubin (0.2-1.3) mg/dL AST (14-36) U/L ALT (4-34) U/L Alkaline Phosphatase (38-126) U/L Total Protein (6.3-8.2) g/dL Albumin (3.5-5.0) g/dL Amylase (30-110) U/L Lipase (23-300) U/L Urine Color Urine Appearance (Clear) Urine pH (5.0-8.0) Ur Specific [place] (1.001-1.035) Urine Protein (Negative) Urine Glucose (UA) (Negative) Urine Ketones (Negative) Urine Blood (Negative) Urine Nitrite (Negative) Urine Bilirubin (Negative) Urine Urobilinogen (<2.0) mg/dL Ur Leukocyte Esterase (Negative) Urine RBC (0-5) /hpf Urine WBC (0-5) /hpf Urine Mucus (None) /hpf Urine HCG, Qual Not Detected (Not Detectd) Disposition Clinical Impression: Abdominal pain Disposition: HOME SELF-CARE Condition: Good Instructions (If sedation given, give patient instructions): Abdominal Pain (ED) Prescriptions: Dicyclomine [Bentyl] 20 mg PO QID #15 tablet Ondansetron Odt [Zofran ODT] 4 mg PO Q8HR PRN #10 tab PRN Reason: Nausea Is patient prescribed a controlled substance at d/c from ED?: No Referrals: Shawna Biswas MD [Primary Care Provider] - 1-2 days Siomara Escoto MD [STAFF PHYSICIAN] - 1-2 days
[2020-05-28 03:32] LABS: Basophils # (A) 0.1 k/uL (0-0.2); Basophils % (A) 1 %; Eosinophils # (A) 0.3 k/uL (0-0.7); Eosinophils % (A) 3 %; HGB 13.9 gm/dL (11.4-16.0); Lymphocytes # (A) 2.9 k/uL (1.0-4.8); Lymphocytes % (A) 27 %; MCV 85.2 fL (80.0-100.0); Mean Platelet Volume 7.2; Monocytes # (A) 0.6 k/uL (0-1.0); Monocytes % (A) 6 %; Neutrophils # (A) 6.5 k/uL (1.3-7.7); Neutrophils % (A) 62 %; Platelet Count 252 k/uL (150-450); RBC 4.81 m/uL (3.80-5.40); RDW 13.3 % (11.5-15.5); WBC 10.5 k/uL (3.8-10.6)
[2020-05-28] MEDS ORDERED: ONDANSETRON 4 MG/2 ML VIAL IVP STA ×2 (03:37→03:58)
[2020-05-28 03:43] LABS: ALT 38 U/L (4-34); AST 24 U/L (14-36); African American GFR (CKD) >90 (>60 ml/min/1.73 sqM); Albumin 3.6 g/dL (3.5-5.0); Alkaline Phosphatase 64 U/L (38-126); Amylase 60 U/L (30-110); Anion Gap 6 mmol/L; Blood Urea Nitrogen 15 mg/dL (7-17); Carbon Dioxide 25 mmol/L (22-30); Chloride 107 mmol/L (98-107); Glucose 126 mg/dL (74-99); Lipase 146 U/L (23-300); Non-African American GFR(CKD) >90 (>60 ml/min/1.73 sqM); Potassium 4.2 mmol/L (3.5-5.1); Sodium 138 mmol/L (137-145); Total Bilirubin 0.3 mg/dL (0.2-1.3); Total Protein 6.7 g/dL (6.3-8.2)
[2020-05-28 03:50] LABS: Appearance,Urine Clear (Clear); Bilirubin,Urine Negative (Negative); Blood,Urine Moderate (Negative); Color,Urine Light Yellow; Glucose,Urine (UA) Negative (Negative); Ketones,Urine Negative (Negative); Leukocyte Esterase,Urine Negative (Negative); Mucus,Urine Rare /hpf; Nitrite,Urine Negative (Negative); PH, Urine 6.5 (5.0-8.0); Protein,Urine Negative (Negative); RBC,Urine 46 /hpf (0-5); Specific Gravity,Urine 1.016 (1.001-1.035); Urobilinogen,Urine <2.0 mg/dL (<2.0); WBC,Urine <1 /hpf (0-5)
[2020-05-28] MEDS ORDERED: HYDROmorphone 1 MG/ML 1 ML SYRINGE IVP STA (03:58)
[2020-05-28] MEDS ORDERED: TAMSULOSIN 0.4 MG CAP.ER.24H PO STA (03:58)
--- NOTE | 2020-05-28 05:29 | CT ---
EXAM: CT Abdomen and Pelvis Without Intravenous Contrast CLINICAL HISTORY: ITS.REASON CT Reason: stone protocol TECHNIQUE: Axial computed tomography images of the abdomen and pelvis without intravenous contrast. CTDI is 25.57 mGy and DLP is 1469.4 mGy-cm. This CT exam was performed using one or more of the following dose reduction techniques: automated exposure control, adjustment of the mA and/or kV according to patient size, and/or use of iterative reconstruction technique. COMPARISON: No relevant prior studies available. FINDINGS: Lung bases: Unremarkable. No mass. No consolidation. ABDOMEN: Liver: There is fatty infiltration of the liver and hepatomegaly with the liver measuring 21.6 cm craniocaudad. No focal liver lesion is seen. Gallbladder and bile ducts: Previous cholecystectomy. No biliary duct dilation is seen. Pancreas: Unremarkable. No ductal dilation. Spleen: Unremarkable. No splenomegaly. Adrenals: Unremarkable. No mass. Kidneys and ureters: There are two 2 mm nonobstructing calyceal calculi in the mid left kidney. No hydronephrosis or ureterolithiasis is seen involving either kidney. Stomach and bowel: There is a moderate to large amount of stool in the cecum or right colon measuring up to 5.6 cm which is within normal limits. No acute inflammatory changes are seen involving the bowel. No mucosal thickening. PELVIS: Appendix: No findings to suggest acute appendicitis. Bladder: Unremarkable. No stones. Reproductive: Unremarkable as visualized. ABDOMEN and PELVIS: Intraperitoneal space: Unremarkable. No free air. No significant fluid collection. Bones/joints: No acute fracture. No dislocation. Soft tissues: Unremarkable. Vasculature: Unremarkable. No abdominal aortic aneurysm. Lymph nodes: Unremarkable. No enlarged lymph nodes. IMPRESSION: 1. There are two 2 mm nonobstructing calyceal calculi in the mid left kidney. No hydronephrosis or ureterolithiasis is seen involving either kidney. 2. There is a moderate to large amount of stool in the cecum or right colon measuring up to 5.6 cm which is within normal limits. No acute inflammatory changes are seen involving the bowel.
== END 2020-05-28 06:11 | disposition home or self-care (01) ==
LOC: EC 02:43
DX: R10.9 Unspecified abdominal pain (principal); F41.9 Anxiety disorder, unspecified; F32.9 Major depressive disorder, single episode, unspecified; Z79.899 Other long term (current) drug therapy; Z88.2 Allergy status to sulfonamides; Z88.1 Allergy status to other antibiotic agents; Z90.49 Acquired absence of other specified parts of digestive tract; Z87.442 Personal history of urinary calculi
CPT/HCPCS: 36415; 80053; 82150; 83690; 85025; 81001; 81025; 74176; 99284; 96374; 96375 ×2; 96376 ×2; J2405; J1170 ×2; J1885

== ENCOUNTER 2020-06-30 10:45 | Day surgery (SDC) | payer OTHER ==
[2020-06-28 13:01] VITALS: BMI 42.0
[2020-06-30 11:30] VITALS: TEMP 97.9
[2020-06-30] MEDS ORDERED: LACTATED RINGERS 1,000 ML IV ONE (11:37)
[2020-06-30] MEDS ORDERED: LIDOCAINE 1% (10MG/ML) FOR IV START INTRADERMA ONE (11:37)
[2020-06-30] MEDS ORDERED: PROPOFOL 10 MG/ML 20 ML VIAL IV ONE (11:57)
--- NOTE | 2020-06-30 12:12 | P.PCN ---
Date of Procedure: 06/30/20 Procedure(s) Performed: BRIEF HISTORY: Patient is a 39-year-old pleasant female scheduled for an elective colonoscopy as a part of evaluation of prior history of colon polyps and intermittent lower abdominal pain with diarrhea for the last 1 month duration. PROCEDURE PERFORMED: Colonoscopy. PREOPERATIVE DIAGNOSIS: Lower abdominal pain/diarrhea and prior history of colon polyps. IV sedation per Anesthesia. PROCEDURE: After informed consent was obtained, the patient, was brought into the endoscopy unit. IV sedation was administered by Anesthesia under continuous monitoring. Digital rectal examination was normal. Initially the Olympus CF-160 flexible video colonoscope was then inserted in the rectum, gradually advanced into the cecum without any difficulty. Careful examination was performed as the scope was gradually being withdrawn. Ileocecal valve and the appendiceal orifice were visualized and appeared normal. Terminal ileum was intubated and 20 cm of the terminal ileum was excised appeared normal. Prep was excellent. Mucosa of the cecum, ascending colon, transverse colon, descending colon, sigmoid colon, and rectum appeared normal. Retroflexion was performed in the rectum and no lesions were seen. The patient tolerated the procedure well. IMPRESSION: Normal-appearing colon from rectum to cecum with no evidence of colitis or colorectal neoplasia.. Normal-appearing terminal ileum. RECOMMENDATIONS: Findings of this examination were discussed with the patient as well as a family. She was advised to be a high-fiber diet and take fiber supplements a regular basis. She can have a repeat screening colonoscopy at age 52.
[2020-06-30 12:19] VITALS: RESP 16
[2020-06-30 12:30] VITALS: BP 117/69; PULSE 71
== END 2020-06-30 12:50 | disposition home or self-care (01) ==
LOC: ORWHC2ENDO 10:45
PROVIDERS: ATTEND Internal Medicine Gastroenterology
DX: R10.30 Lower abdominal pain, unspecified (principal); R19.7 Diarrhea, unspecified; Z86.010 Personal history of colon polyps; J45.909 Unspecified asthma, uncomplicated; Z87.442 Personal history of urinary calculi; Z98.891 History of uterine scar from previous surgery; Z90.49 Acquired absence of other specified parts of digestive tract; Z98.890 Other specified postprocedural states; Z79.899 Other long term (current) drug therapy; Z88.1 Allergy status to other antibiotic agents; Z88.2 Allergy status to sulfonamides
CPT/HCPCS: 81025; 45378; J2704

== ENCOUNTER 2020-08-27 08:26 | Emergency (ER) | payer OTHER ==
[2020-08-27 08:42] VITALS: RESP 18; TEMP 98.1
[2020-08-27] MEDS ORDERED: KETOROLAC 15 MG/ML 1 ML VIAL IVP STA (09:14)
[2020-08-27] MEDS ORDERED: SODIUM CHLORIDE 0.9% 1,000 ML IV STA (09:14)
[2020-08-27] MEDS ORDERED: METOCLOPRAMIDE 5 MG/ML 2 ML VIAL IVP STA (09:16)
--- NOTE | 2020-08-27 09:16 | ED ---
General Adult HPI - General Chief complaint: Urogenital Stated complaint: KIDNEY STONE Time Seen by Provider: 08/27/20 08:55 Source: patient, RN notes reviewed Mode of arrival: ambulatory Limitations: no limitations - History of Present Illness Initial comments: Patient is a pleasant 40-year-old female presenting to the emergency Department with right flank pain. Onset of symptoms was last night. Discomfort has been waxing and waning and is severe this morning. Patient has some mild nausea. No vomiting. Patient has urgency to urinate. No dysuria. No fevers. Patient does have history of similar symptoms several times previously associated with kidney stones. Discomfort is not positional. Patient has difficulty finding a position of comfort. - Related Data Home Medications Medication Instructions Recorded Confirmed Clobetasol Propionate [Temovate 1 applic TOPICAL BID PRN 08/27/20 08/27/20 0.05% Oint] Allergies Allergy/AdvReac Type Severity Reaction Status Date / Time erythromycin base Allergy Rash/Hives Verified 08/27/20 10:17 sulfamethoxazole Allergy Rash/Hives Verified 08/27/20 10:17 [From Bactrim] trimethoprim [From Bactrim] Allergy Rash/Hives Verified 08/27/20 10:17 Review of Systems ROS Statement: Those systems with pertinent positive or pertinent negative responses have been documented in the HPI. ROS Other: All systems not noted in ROS Statement are negative. Constitutional: Denies: fever Eyes: Denies: eye pain ENT: Denies: ear pain Respiratory: Denies: cough Cardiovascular: Denies: chest pain Endocrine: Denies: fatigue Gastrointestinal: Reports: as per HPI, nausea. Denies: vomiting Genitourinary: Reports: urgency. Denies: dysuria Musculoskeletal: Denies: arthralgia Skin: Denies: rash Neurological: Denies: weakness Past Medical History Past Medical History: Asthma, GERD/Reflux, Skin Disorder Additional Past Medical History / Comment(s): childhood asthma, heartburn and epigastric pain, eczema, kidney stones History of Any Multi-Drug Resistant Organisms: None Reported Past Surgical History: Section, Cholecystectomy, Orthopedic Surgery, Tonsillectomy, Tubal Ligation Additional Past Surgical History / Comment(s): LEFT KNEE ARTHROSCOPY, CYSTOSCOPY, LITHOTRIPSY Past Anesthesia/Blood Transfusion Reactions: Previous Problems w/ Anesthesia, Postoperative Nausea & Vomiting (PONV) Additional Past Anesthesia/Blood Transfusion Reaction / Comment(s): woke up crying one time Past Psychological History: Anxiety, Depression Smoking Status: Former smoker Past Alcohol Use History: None Reported Past Drug Use History: Marijuana - Past Family History Mother Family Medical History: Cancer General Exam Limitations: no limitations General appearance: alert, in no apparent distress Head exam: Present: normocephalic Eye exam: Present: normal appearance Respiratory exam: Present: normal lung sounds bilaterally Cardiovascular Exam: Present: regular rate, normal rhythm Expanded Peripheral pulses: 2+: Dorsalis Pedis (R), Dorsalis Pedis (L) GI/Abdominal exam: Present: soft. Absent: distended, tenderness, guarding, rebound, rigid Extremities exam: Present: normal inspection Back exam: Present: normal inspection. Absent: tenderness, CVA tenderness (R) Neurological exam: Present: alert Psychiatric exam: Present: normal affect, normal mood Skin exam: Present: normal color Course Vital Signs 08/27/20 08:39 Temperature 98.1 F Pulse Rate 88 Respiratory 18 Rate Blood Pressure 134/89 O2 Sat by Pulse 97 Oximetry Medical Decision Making - Medical Decision Making Patient reevaluated and resting comfortably in bed. Patient states she is feeling much better. Patient updated on results and need for follow-up as well as need to return if symptoms worsen. Patient is made aware of nonvisualization of the appendix. Of note there is no inflammatory changes, no fever or blood cell count elevation. Patient does not have a history consistent with concern for appendicitis - Lab Data Result diagrams: 08/27/20 09:37 08/27/20 09:37 Lab Results 08/27/20 08/27/20 08/27/20 Range/Units 09:37 09:37 09:37 WBC 10.0 (3.8-10.6) k/uL RBC 5.00 (3.80-5.40) m/uL Hgb 14.4 (11.4-16.0) gm/dL Hct 42.1 (34.0-46.0) % MCV 84.1 (80.0-100.0) fL MCH 28.8 (25.0-35.0) pg MCHC 34.2 (31.0-37.0) g/dL RDW 13.0 (11.5-15.5) % Plt Count 283 (150-450) k/uL MPV 7.3 Neutrophils % 64 % Lymphocytes % 26 % Monocytes % 4 % Eosinophils % 3 % Basophils % 1 % Neutrophils # 6.4 (1.3-7.7) k/uL Lymphocytes # 2.6 (1.0-4.8) k/uL Monocytes # 0.4 (0-1.0) k/uL Eosinophils # 0.3 (0-0.7) k/uL Basophils # 0.1 (0-0.2) k/uL PT 9.8 (9.0-12.0) sec INR 0.9 (<1.2) APTT 22.6 (22.0-30.0) sec Sodium (137-145) mmol/L Potassium (3.5-5.1) mmol/L Chloride (98-107) mmol/L Carbon Dioxide (22-30) mmol/L Anion Gap mmol/L BUN (7-17) mg/dL Creatinine (0.52-1.04) mg/dL Est GFR (CKD-EPI)AfAm (>60 ml/min/1.73 sqM) Est GFR (CKD-EPI)NonAf (>60 ml/min/1.73 sqM) Glucose (74-99) mg/dL Calcium (8.4-10.2) mg/dL Total Bilirubin (0.2-1.3) mg/dL AST (14-36) U/L ALT (4-34) U/L Alkaline Phosphatase (38-126) U/L Total Protein (6.3-8.2) g/dL Albumin (3.5-5.0) g/dL Amylase (30-110) U/L Lipase (23-300) U/L Urine Color Yellow Urine Appearance Clear (Clear) Urine pH 5.5 (5.0-8.0) Ur Specific [place] 1.024 (1.001-1.035) Urine Protein Trace H (Negative) Urine Glucose (UA) Negative (Negative) Urine Ketones Negative (Negative) Urine Blood Negative (Negative) Urine Nitrite Negative (Negative) Urine Bilirubin Negative (Negative) Urine Urobilinogen <2.0 (<2.0) mg/dL Ur Leukocyte Esterase Trace H (Negative) Urine RBC 2 (0-5) /hpf Urine WBC 2 (0-5) /hpf Ur Squamous Epith Cells 3 (0-4) /hpf Urine Mucus Rare H (None) /hpf 08/27/20 Range/Units 09:37 WBC (3.8-10.6) k/uL RBC (3.80-5.40) m/uL Hgb (11.4-16.0) gm/dL Hct (34.0-46.0) % MCV (80.0-100.0) fL MCH (25.0-35.0) pg MCHC (31.0-37.0) g/dL RDW (11.5-15.5) % Plt Count (150-450) k/uL MPV Neutrophils % % Lymphocytes % % Monocytes % % Eosinophils % % Basophils % % Neutrophils # (1.3-7.7) k/uL Lymphocytes # (1.0-4.8) k/uL Monocytes # (0-1.0) k/uL Eosinophils # (0-0.7) k/uL Basophils # (0-0.2) k/uL PT (9.0-12.0) sec INR (<1.2) APTT (22.0-30.0) sec Sodium 139 (137-145) mmol/L Potassium 4.5 (3.5-5.1) mmol/L Chloride 107 (98-107) mmol/L Carbon Dioxide 25 (22-30) mmol/L Anion Gap 7 mmol/L BUN 10 (7-17) mg/dL Creatinine 0.67 (0.52-1.04) mg/dL Est GFR (CKD-EPI)AfAm >90 (>60 ml/min/1.73 sqM) Est GFR (CKD-EPI)NonAf >90 (>60 ml/min/1.73 sqM) Glucose 116 H (74-99) mg/dL Calcium 9.0 (8.4-10.2) mg/dL Total Bilirubin 0.3 (0.2-1.3) mg/dL AST 35 (14-36) U/L ALT 48 H (4-34) U/L Alkaline Phosphatase 76 (38-126) U/L Total Protein 7.0 (6.3-8.2) g/dL Albumin 3.9 (3.5-5.0) g/dL Amylase 63 (30-110) U/L Lipase 84 (23-300) U/L Urine Color Urine Appearance (Clear) Urine pH (5.0-8.0) Ur Specific [place] (1.001-1.035) Urine Protein (Negative) Urine Glucose (UA) (Negative) Urine Ketones (Negative) Urine Blood (Negative) Urine Nitrite (Negative) Urine Bilirubin (Negative) Urine Urobilinogen (<2.0) mg/dL Ur Leukocyte Esterase (Negative) Urine RBC (0-5) /hpf Urine WBC (0-5) /hpf Ur Squamous Epith Cells (0-4) /hpf Urine Mucus (None) /hpf - Radiology Data Radiology results: report reviewed (Abdomen pelvis CT reveals no acute process), image reviewed (1 view abdomen x-ray reveals nonobstructive pattern) Disposition Clinical Impression: Abdominal pain Disposition: HOME SELF-CARE Condition: Stable Instructions (If sedation given, give patient instructions): Abdominal Pain (ED) Additional Instructions: Please do follow-up with primary care physician in the next couple days for recheck. Return for fevers, increased pain, worsening or change in symptoms, or any other concerns. Is patient prescribed a controlled substance at d/c from ED?: No Referrals: Shawna Biswas MD [Primary Care Provider] - 1-2 days Time of Disposition: 11:21
[2020-08-27 10:00] LABS: Basophils # (A) 0.1 k/uL (0-0.2); Basophils % (A) 1 %; Eosinophils # (A) 0.3 k/uL (0-0.7); Eosinophils % (A) 3 %; HCT 42.1 % (34.0-46.0); HGB 14.4 gm/dL (11.4-16.0); Lymphocytes # (A) 2.6 k/uL (1.0-4.8); Lymphocytes % (A) 26 %; MCH 28.8 pg (25.0-35.0); MCHC 34.2 g/dL (31.0-37.0); MCV 84.1 fL (80.0-100.0); Mean Platelet Volume 7.3; Monocytes # (A) 0.4 k/uL (0-1.0); Monocytes % (A) 4 %; Neutrophils # (A) 6.4 k/uL (1.3-7.7); Neutrophils % (A) 64 %; Platelet Count 283 k/uL (150-450)
[2020-08-27 10:06] LABS: Appearance,Urine Clear (Clear); Bilirubin,Urine Negative (Negative); Blood,Urine Negative (Negative); Color,Urine Yellow; Glucose,Urine (UA) Negative (Negative); Ketones,Urine Negative (Negative); Leukocyte Esterase,Urine Trace (Negative); Mucus,Urine Rare /hpf; Nitrite,Urine Negative (Negative); PH, Urine 5.5 (5.0-8.0); Protein,Urine Trace (Negative); RBC,Urine 2 /hpf (0-5); Specific Gravity,Urine 1.024 (1.001-1.035); Squamous Epithelial Cell,Urine 3 /hpf (0-4); Urobilinogen,Urine <2.0 mg/dL (<2.0); WBC,Urine 2 /hpf (0-5)
[2020-08-27 10:12] LABS: ALT 48 U/L (4-34); AST 35 U/L (14-36); African American GFR (CKD) >90 (>60 ml/min/1.73 sqM); Albumin 3.9 g/dL (3.5-5.0); Alkaline Phosphatase 76 U/L (38-126); Amylase 63 U/L (30-110); Anion Gap 7 mmol/L; Blood Urea Nitrogen 10 mg/dL (7-17); Carbon Dioxide 25 mmol/L (22-30); Chloride 107 mmol/L (98-107); Glucose 116 mg/dL (74-99); Lipase 84 U/L (23-300); Non-African American GFR(CKD) >90 (>60 ml/min/1.73 sqM); Potassium 4.5 mmol/L (3.5-5.1); Sodium 139 mmol/L (137-145); Total Bilirubin 0.3 mg/dL (0.2-1.3)
[2020-08-27 10:14] LABS: INR 0.9 (<1.2); Partial Thromboplastin Time 22.6 sec (22.0-30.0); Prothrombin Time 9.8 sec (9.0-12.0)
--- NOTE | 2020-08-27 10:23 | XR ---
EXAMINATION TYPE: XR KUB DATE OF EXAM: 08/27/2020 COMPARISON: NONE HISTORY: Pain TECHNIQUE: Single supine KUB image of the abdomen is obtained FINDINGS: Small bowel demonstrates no evidence for dilatation or air fluid levels. Gas and fecal material is seen in non-distended colon. No convincing evidence for pneumoperitoneum. No unusual calcifications. The lung bases are clear. The osseous structures are intact. IMPRESSION: 1. Overall nonobstructive bowel gas pattern.
--- NOTE | 2020-08-27 11:12 | CT ---
EXAMINATION TYPE: CT abdomen pelvis wo con DATE OF EXAM: 08/27/2020 COMPARISON: 05/28/2020 HISTORY: Right sided pain with history of stones. CT DLP: 1616.4 mGycm Examination of the solid and hollow viscera is limited given the lack of contrast. FINDINGS: LUNG BASES: No evidence for nodule. No evidence for infiltrate. LIVER/GB: The gallbladder is unremarkable. No space-occupying hepatic lesion. PANCREAS: No pancreatic mass identified. No inflammatory process seen. SPLEEN: No evidence for splenomegaly. No intrasplenic lesions seen. ADRENALS: No adrenal nodules identified. No evidence for thickening. KIDNEYS: No evidence for renal mass. Nonobstructing tiny calculi left kidney. No hydronephrosis. BOWEL: Poor visualization of the appendix. No inflammatory process right lower quadrant. No evidence of bowel obstruction. No inflammatory process. Lymph nodes: No evidence for adenopathy greater than 1 cm. Abdominal aorta: Atheromatous changes seen. No evidence for aneurysm. Genital organs: No significant abnormality. Other: No significant abnormality. IMPRESSION: Nonobstructing tiny calculi left kidney.
[2020-08-27 11:32] VITALS: BP 102/59; PULSE 56
== END 2020-08-27 11:32 | disposition home or self-care (01) ==
LOC: EC 08:26
DX: R10.9 Unspecified abdominal pain (principal); Z88.1 Allergy status to other antibiotic agents; Z88.2 Allergy status to sulfonamides; Z90.49 Acquired absence of other specified parts of digestive tract; Z98.51 Tubal ligation status; Z87.891 Personal history of nicotine dependence; Z87.442 Personal history of urinary calculi
CPT/HCPCS: 36415; 80053; 82150; 83690; 85025; 85610; 85730; 81001; 74018; 74176; 99284; 96374; 96375; 96361 ×2; J2765; J1885

== ENCOUNTER 2021-02-13 09:32 | Emergency (ER) | payer OTHER ==
[2021-02-13 09:38] VITALS: TEMP 97.4
[2021-02-13] MEDS ORDERED: HYDROmorphone 0.5 MG/0.5 ML SYRINGE IVP STA (10:14)
[2021-02-13] MEDS ORDERED: SODIUM CHLORIDE 0.9% 2,000 ML IV STA (10:14)
[2021-02-13] MEDS ORDERED: ONDANSETRON 4 MG/2 ML VIAL IVP STA (10:14)
[2021-02-13] MEDS ORDERED: KETOROLAC 15 MG/ML 1 ML VIAL IVP STA ×2 (10:14→11:31)
[2021-02-13 10:28] LABS: Basophils % (A) 0 %; Eosinophils # (A) 0.3 k/uL (0-0.7); Eosinophils % (A) 3 %; HCT 43.9 % (34.0-46.0); Lymphocytes # (A) 2.7 k/uL (1.0-4.8); Lymphocytes % (A) 29 %; MCH 29.1 pg (25.0-35.0); MCHC 34.2 g/dL (31.0-37.0); MCV 84.9 fL (80.0-100.0); Mean Platelet Volume 7.4; Monocytes # (A) 0.4 k/uL (0-1.0); Monocytes % (A) 5 %; Neutrophils # (A) 5.8 k/uL (1.3-7.7); Neutrophils % (A) 62 %; Platelet Count 282 k/uL (150-450); RBC 5.17 m/uL (3.80-5.40); WBC 9.3 k/uL (3.8-10.6)
[2021-02-13 10:29] LABS: Appearance,Urine Clear (Clear); Bacteria,Urine Rare /hpf; Bilirubin,Urine Negative (Negative); Blood,Urine Negative (Negative); Color,Urine Light Yellow; Glucose,Urine (UA) Negative (Negative); Ketones,Urine Negative (Negative); Leukocyte Esterase,Urine Small (Negative); Mucus,Urine Rare /hpf; Nitrite,Urine Negative (Negative); PH, Urine 6.5 (5.0-8.0); Protein,Urine Negative (Negative); RBC,Urine <1 /hpf (0-5); Specific Gravity,Urine 1.013 (1.001-1.035); Squamous Epithelial Cell,Urine 3 /hpf (0-4); Urobilinogen,Urine <2.0 mg/dL (<2.0); WBC,Urine 3 /hpf (0-5)
--- NOTE | 2021-02-13 10:34 | ED ---
Abdominal Pain HPI - General Chief Complaint: Abdominal Pain Stated Complaint: Kidney Stones Time Seen by Provider: 02/13/21 09:49 Source: patient, RN notes reviewed Mode of arrival: ambulatory Limitations: no limitations - History of Present Illness Initial Comments: 32-year-old female presents emergency with chief complaint of left flank pain. Patient has a history of kidney stone states it feels exactly same. She has seen urology in the past. Patient denies any nausea vomiting no dysuria no noted hematuria. Patient states that nothing makes the pain feel better or worse. - Related Data Home Medications Medication Instructions Recorded Confirmed Clobetasol Propionate [Temovate 1 applic TOPICAL BID PRN 08/27/20 08/27/20 0.05% Oint] Previous Rx's Medication Instructions Recorded Ketorolac [Toradol] 10 mg PO Q8HR #15 tab 02/13/21 Ondansetron Odt [Zofran Odt] 4 mg PO Q8HR PRN #10 tab 02/13/21 Tamsulosin [Flomax] 0.4 mg PO DAILY #7 cap 02/13/21 Allergies Allergy/AdvReac Type Severity Reaction Status Date / Time erythromycin base Allergy Rash/Hives Verified 02/13/21 09:38 sulfamethoxazole Allergy Rash/Hives Verified 02/13/21 09:38 [From Bactrim] trimethoprim [From Bactrim] Allergy Rash/Hives Verified 02/13/21 09:38 Review of Systems ROS Statement: Those systems with pertinent positive or pertinent negative responses have been documented in the HPI. ROS Other: All systems not noted in ROS Statement are negative. Past Medical History Past Medical History: Asthma, GERD/Reflux, Skin Disorder Additional Past Medical History / Comment(s): childhood asthma, heartburn and ep igastric pain, eczema, kidney stones History of Any Multi-Drug Resistant Organisms: None Reported Past Surgical History: Section, Cholecystectomy, Orthopedic Surgery, Tonsillectomy, Tubal Ligation Additional Past Surgical History / Comment(s): LEFT KNEE ARTHROSCOPY, CYSTOSCOPY, LITHOTRIPSY Past Anesthesia/Blood Transfusion Reactions: Previous Problems w/ Anesthesia, Postoperative Nausea & Vomiting (PONV) Additional Past Anesthesia/Blood Transfusion Reaction / Comment(s): woke up crying one time Past Psychological History: Anxiety, Depression Smoking Status: Former smoker Past Alcohol Use History: None Reported Past Drug Use History: Marijuana - Past Family History Mother Family Medical History: Cancer General Exam Limitations: no limitations General appearance: alert, in no apparent distress Head exam: Present: atraumatic, normocephalic, normal inspection Eye exam: Present: normal appearance, PERRL, EOMI. Absent: scleral icterus, conjunctival injection, periorbital swelling ENT exam: Present: normal exam, normal oropharynx, mucous membranes moist Neck exam: Present: normal inspection, full ROM. Absent: tenderness, meningismus, lymphadenopathy Respiratory exam: Present: normal lung sounds bilaterally. Absent: respiratory distress, wheezes, rales, rhonchi, stridor Cardiovascular Exam: Present: regular rate, normal rhythm, normal heart sounds. Absent: systolic murmur, diastolic murmur, rubs, gallop, clicks GI/Abdominal exam: Present: soft, normal bowel sounds. Absent: distended, tenderness, guarding, rebound, rigid Back exam: Absent: CVA tenderness (R), CVA tenderness (L) Course Vital Signs 02/13/21 09:35 Temperature 97.4 F L Pulse Rate 55 L Respiratory 20 Rate Blood Pressure 140/84 O2 Sat by Pulse 99 Oximetry Medical Decision Making - Medical Decision Making 40-year-old female presents emergency department for left flank pain. Patient has history kidney stones patient states pain similar. Patient's pain is improving discharged with antiemetics, pain control follow-up with her urologist . - Lab Data Result diagrams: 02/13/21 10:19 02/13/21 10:19 Lab Results 02/13/21 02/13/21 02/13/21 Range/Units 10:04 10:19 10:19 WBC 9.3 (3.8-10.6) k/uL RBC 5.17 (3.80-5.40) m/uL Hgb 15.0 (11.4-16.0) gm/dL Hct 43.9 (34.0-46.0) % MCV 84.9 (80.0-100.0) fL MCH 29.1 (25.0-35.0) pg MCHC 34.2 (31.0-37.0) g/dL RDW 13.0 (11.5-15.5) % Plt Count 282 (150-450) k/uL MPV 7.4 Neutrophils % 62 % Lymphocytes % 29 % Monocytes % 5 % Eosinophils % 3 % Basophils % 0 % Neutrophils # 5.8 (1.3-7.7) k/uL Lymphocytes # 2.7 (1.0-4.8) k/uL Monocytes # 0.4 (0-1.0) k/uL Eosinophils # 0.3 (0-0.7) k/uL Basophils # 0.0 (0-0.2) k/uL Sodium 139 (137-145) mmol/L Potassium 4.2 (3.5-5.1) mmol/L Chloride 106 (98-107) mmol/L Carbon Dioxide 25 (22-30) mmol/L Anion Gap 8 mmol/L BUN 9 (7-17) mg/dL Creatinine 0.66 (0.52-1.04) mg/dL Est GFR (CKD-EPI)AfAm >90 (>60 ml/min/1.73 sqM) Est GFR (CKD-EPI)NonAf >90 (>60 ml/min/1.73 sqM) Glucose 101 H (74-99) mg/dL Calcium 9.2 (8.4-10.2) mg/dL Total Bilirubin 0.5 (0.2-1.3) mg/dL AST 33 (14-36) U/L ALT 38 H (4-34) U/L Alkaline Phosphatase 80 (38-126) U/L Total Protein 7.0 (6.3-8.2) g/dL Albumin 3.9 (3.5-5.0) g/dL Lipase 72 (23-300) U/L Urine Color Light Yellow Urine Appearance Clear (Clear) Urine pH 6.5 (5.0-8.0) Ur Specific [place] 1.013 (1.001-1.035) Urine Protein Negative (Negative) Urine Glucose (UA) Negative (Negative) Urine Ketones Negative (Negative) Urine Blood Negative (Negative) Urine Nitrite Negative (Negative) Urine Bilirubin Negative (Negative) Urine Urobilinogen <2.0 (<2.0) mg/dL Ur Leukocyte Esterase Small H (Negative) Urine RBC <1 (0-5) /hpf Urine WBC 3 (0-5) /hpf Ur Squamous Epith Cells 3 (0-4) /hpf Urine Bacteria Rare H (None) /hpf Urine Mucus Rare H (None) /hpf Disposition Clinical Impression: Flank pain, History of kidney stones Disposition: HOME SELF-CARE Condition: Stable Instructions (If sedation given, give patient instructions): Kidney Stones (ED) Additional Instructions: Please return to the Emergency Department if symptoms worsen or any other concerns. Prescriptions: Tamsulosin [Flomax] 0.4 mg PO DAILY #7 cap Ketorolac [Toradol] 10 mg PO Q8HR #15 tab Ondansetron Odt [Zofran Odt] 4 mg PO Q8HR PRN #10 tab PRN Reason: Nausea Is patient prescribed a controlled substance at d/c from ED?: No Referrals: Shawna Biswas MD [Primary Care Provider] - 1-2 days Walter Angulo MD [STAFF PHYSICIAN] - 1-2 days Time of Disposition: 11:46
[2021-02-13 10:43] LABS: ALT 38 U/L (4-34); AST 33 U/L (14-36); African American GFR (CKD) >90 (>60 ml/min/1.73 sqM); Albumin 3.9 g/dL (3.5-5.0); Alkaline Phosphatase 80 U/L (38-126); Anion Gap 8 mmol/L; Blood Urea Nitrogen 9 mg/dL (7-17); Calcium 9.2 mg/dL (8.4-10.2); Carbon Dioxide 25 mmol/L (22-30); Chloride 106 mmol/L (98-107); Glucose 101 mg/dL (74-99); Lipase 72 U/L (23-300); Non-African American GFR(CKD) >90 (>60 ml/min/1.73 sqM); Potassium 4.2 mmol/L (3.5-5.1); Sodium 139 mmol/L (137-145); Total Bilirubin 0.5 mg/dL (0.2-1.3)
[2021-02-13] MEDS ORDERED: HYDROmorphone 1 MG/ML 1 ML SYRINGE IVP STA (11:31)
[2021-02-13] MEDS ORDERED: TAMSULOSIN 0.4 MG CAP.ER.24H PO STA (11:31)
[2021-02-13] MEDS ORDERED: ACET/COD 300 MG/30 MG STARTER PACK 6 TAB BTL PO STA (11:44)
--- NOTE | 2021-02-13 11:57 | XR ---
KUB HISTORY: Abdominal pain Frontal KUB on 2 images correlated prior KUB and CT 08/27/2020 Degenerative disc changes again noted in the visualized spine. Lung bases are clear. There is a spina l curvature. No evident bowel obstruction or pneumoperitoneum. No pathologic calcification evident, p unctate nonobstructive calcifications within the left kidney seen on prior CT are not well seen on pl ain film.. IMPRESSION: No acute abnormality evident.
[2021-02-13 11:59] VITALS: BP 134/80; PULSE 52; RESP 18
== END 2021-02-13 13:02 | disposition home or self-care (01) ==
LOC: EC 09:32
DX: R10.9 Unspecified abdominal pain (principal); Z87.442 Personal history of urinary calculi; K21.9 Gastro-esophageal reflux disease without esophagitis; F12.90 Cannabis use, unspecified, uncomplicated; Z87.891 Personal history of nicotine dependence
CPT/HCPCS: 36415; 80053; 83690; 85025; 81001; 74018; 96374; 96375 ×2; 96376 ×2; 96361 ×2; 99284; J2405; J1170 ×2; J1885

== ENCOUNTER 2021-12-14 10:15 | Day surgery (SDC) | payer OTHER ==
[~2021-12-14 10:15] MED LIST changes: +DEXAMETHASONE SOD PHOSPHATE 4 MG/ML 1 ML VIAL IV ONE; +MIDAZOLAM 2 MG/2 ML VIAL IV PRN; +Pre Op ABX Message 1 EACH MISC MISCELLANE ONE; +SCOPOLAMINE 1 MG/72 HR PATCH TRANSDERM ONE
[2021-12-14 10:49] LABS: Glucose,Whole Blood 86 mg/dL (70-110)
[2021-12-14] MEDS: ONDANSETRON 4 MG/2 ML VIAL IVP ONE ×2 (10:49→13:38)
[2021-12-14] MEDS ORDERED: SODIUM CHLORIDE 0.9% 100 ML with ceFAZolin 2,000 MG IV ONE ×2 (11:54)
[2021-12-14] MEDS ORDERED: BUPIVACAINE (PF) 0.25% 30 ML VIAL SQ ONE (11:57)
[2021-12-14 12:37] VITALS: RESP 16; TEMP 97.1
--- NOTE | 2021-12-14 12:38 | P.OP ---
Date of Procedure: 12/14/21 Preoperative Diagnosis: 1. Plantar fasciitis left foot 2. Calcaneal spur left foot Postoperative Diagnosis: 1. Plantar fasciitis left foot Procedure(s) Performed: Plantar fasciotomy left foot Implants: None Anesthesia: TL Surgeon: Sly Garcia Estimated Blood Loss (ml): 0 Pathology: none sent Condition: stable Disposition: PACU Description of Procedure: The patient was brought into the operating room and placed on the table in the supine position. Timeout was taken to confirm correct patient identifiers, correct laterality of surgery, and correct procedure. When all staff in the room were in agreement with the timeout, the patient was induced and placed under general anesthesia. A well-padded tourniquet was placed on the left calf approximately 3-4 inches distal to the fibular neck. And then 20 mL of 0.25% Marcaine was injected as a left ankle block. The left leg was prepped and draped in the usual manner. The leg was exsanguinated and the tourniquet inflated to 250 mmHg. Utilizing the lateral view of the foot on direct fluoroscopic visualization, a metallic pointer was used to identify the insertion of the plantar fascia. During this time was noted that there was not a calcaneal spur present. The metallic marker was used to indicate with the skin incision would be placed. Skin was opened and deepened to the subcutaneous layer, careful to identify, avoid, and retract any neurovascular structures and cauterize any bleeding vessels. A soft tissue elevator was then used to separate the plantar fascia from the underlying adipose tissue and the overlying muscular structures. Once completed sharp scissors were used to resect the plantar fascial insertion and this was continued laterally until reaching the midline of the calcaneus. While doing this procedure the great toe was dorsiflexed so that the palpable release could be felt once completed. Once the fascia was released the wound is irrigated thoroughly with sterile saline. The incision was closed with 3-0 nylon. Nonadherent gauze and a bulky dry dressing applied to left foot. The tourniquet was released and capillary refill return to all digits on the left foot. The patient tolerated the above procedure and anesthesia well. The patient went to recovery with vital signs stable.
[2021-12-14] MEDS: HYDROmorphone 0.5 MG/0.5 ML SYRINGE IVP PRN ×2 (12:50→12:56)
[2021-12-14] MEDS ORDERED: ONDANSETRON 4 MG/2 ML VIAL ONE (13:38)
[2021-12-14 13:54] VITALS: BP 136/68; PULSE 63
[2021-12-14] MEDS ORDERED: HYDROcodone/APAP 5-325MG 1 EACH TAB ONE (13:57)
[2021-12-14] MEDS ORDERED: HYDROcodone/APAP 5-325MG 1 EACH TAB PO ONE (13:58)
== END 2021-12-14 15:08 | disposition home or self-care (01) ==
LOC: OR 10:15
PROVIDERS: ATTEND Podiatrist
DX: M72.2 Plantar fascial fibromatosis (principal); K21.9 Gastro-esophageal reflux disease without esophagitis; J45.909 Unspecified asthma, uncomplicated; Z88.2 Allergy status to sulfonamides; Z88.3 Allergy status to other anti-infective agents; Z87.891 Personal history of nicotine dependence; Z80.8 Family history of malignant neoplasm of other organs or systems; Z83.3 Family history of diabetes mellitus; Z82.49 Family history of ischemic heart disease and other diseases of the circulatory system
CPT/HCPCS: 81025; 28008; J1100; J2405; J0690; J1170

== ENCOUNTER → 2021-12-28 | Outpatient (CLI) | payer OTHER ==
--- NOTE | 2021-12-28 16:33 | XR ---
KUB HISTORY: Abdominal pain Frontal KUB on 2 images correlated prior KUB 02/13/2021, CT abdomen and pelvis 08/27/2020. Degenerative disc changes again noted in the visualized spine. Lung bases are clear. No evident shad l obstruction or gross pneumoperitoneum. No calcifications seen within the visualized kidneys however the transverse colon obscures this region bilaterally. Pelvis phlebolith in the left pelvis as demon strated on prior CT. IMPRESSION: No acute abnormality evident.
== END | disposition home or self-care (01) ==
LOC: RADXRMAIN 12:45
PROVIDERS: ATTEND Urology
DX: N20.0 Calculus of kidney (principal)
CPT/HCPCS: 74018

== ENCOUNTER 2022-09-06 16:05 | Emergency (ER) | payer OTHER ==
[2022-09-06 16:19] VITALS: TEMP 97.6
[2022-09-06] MEDS ORDERED: KETOROLAC 15 MG/ML 1 ML VIAL IM STA (16:45)
[2022-09-06] MEDS ORDERED: ORPHENADRINE 30 MG/ML 2 ML VIAL IM STA (16:45)
[2022-09-06 18:06] LABS: Appearance,Urine Clear (Clear); Bilirubin,Urine Negative (Negative); Blood,Urine Negative (Negative); Color,Urine Yellow; Glucose,Urine (UA) Negative (Negative); Ketones,Urine Negative (Negative); Leukocyte Esterase,Urine Negative (Negative); Nitrite,Urine Negative (Negative); PH, Urine 5.5 (5.0-8.0); Protein,Urine Trace (Negative); Specific Gravity,Urine 1.025 (1.001-1.035); Urobilinogen,Urine <2.0 mg/dL (<2.0)
[2022-09-06] MEDS ORDERED: HYDROmorphone 1 MG/ML 1 ML SYRINGE IM STA (18:10)
[2022-09-06] MEDS ORDERED: LIDOCAINE 5% PATCH TOPICAL STA (18:10)
--- NOTE | 2022-09-06 18:17 | ED ---
Back Pain HPI - General Chief Complaint: Back Pain/Injury Stated Complaint: KIDNEY STONE Time Seen by Provider: 09/06/22 16:31 Source: patient Limitations: no limitations - History of Present Illness Initial Comments: Patient is a 42-year-old female presenting with chief complaint of back pain. Patient states that she has had some left-sided mid back pain for the last week. Patient does have a history of kidney stones and states that she has been doing a lot of lifting at work. No dysuria or hematuria. She does have some urgency which she states that she has had for quite some time prior to symptoms. No chest pain or difficulty breathing. No abdominal pain. She admits to mild nausea with no vomiting. No diarrhea. She had an outpatient KUB performed today which shows no definitive nephrolithiasis. - Related Data Home Medications Medication Instructions Recorded Confirmed Clobetasol Propionate [Temovate 1 applic TOPICAL BID PRN 08/27/20 12/14/21 0.05% Oint] Previous Rx's Medication Instructions Recorded HYDROcodone/APAP 5-325MG [[place] 1 tab PO Q6HR PRN #28 tab 12/14/21 5-325] Allergies Allergy/AdvReac Type Severity Reaction Status Date / Time erythromycin base Allergy Rash/Hives Verified 09/06/22 16:19 sulfamethoxazole Allergy Rash/Hives Verified 09/06/22 16:19 [From Bactrim] trimethoprim [From Bactrim] Allergy Rash/Hives Verified 09/06/22 16:19 Review of Systems ROS Statement: Those systems with pertinent positive or pertinent negative responses have been documented in the HPI. ROS Other: All systems not noted in ROS Statement are negative. Past Medical History Past Medical History: Asthma, GERD/Reflux, Skin Disorder, Syncope Additional Past Medical History / Comment(s): childhood asthma, heartburn and epigastric pain, eczema, hx kidney stones. recent bronchitis 11/24/21 treated with steroid pack and augementin (completed) History of Any Multi-Drug Resistant Organisms: None Reported Past Surgical History: Section, Cholecystectomy, Orthopedic Surgery, Tonsillectomy, Tubal Ligation Additional Past Surgical History / Comment(s): LEFT KNEE ARTHROSCOPY, CYSTOSCOPY, LITHOTRIPSY Past Anesthesia/Blood Transfusion Reactions: Previous Problems w/ Anesthesia, Postoperative Nausea & Vomiting (PONV) Additional Past Anesthesia/Blood Transfusion Reaction / Comment(s): woke up crying one time Past Psychological History: Anxiety, Depression Smoking Status: Former smoker Past Alcohol Use History: None Reported Past Drug Use History: None Reported - Past Family History Mother Family Medical History: Cancer Additional Family Medical History / Comment(s): Melanoma Father Family Medical History: No Reported History General Exam Limitations: no limitations General appearance: alert, in no apparent distress Head exam: Present: atraumatic, normocephalic, normal inspection Eye exam: Present: normal appearance Neck exam: Present: normal inspection, full ROM Respiratory exam: Present: normal lung sounds bilaterally. Absent: respiratory distress, wheezes, rales, rhonchi, stridor Cardiovascular Exam: Present: regular rate, normal rhythm, normal heart sounds. Absent: systolic murmur, diastolic murmur, rubs, gallop, clicks Back exam: Present: normal inspection. Absent: CVA tenderness (R), CVA tenderness (L) Neurological exam: Present: alert, oriented X3, CN II-XII intact Psychiatric exam: Present: normal affect, normal mood Skin exam: Present: warm, dry, intact, normal color. Absent: rash Course Vital Signs 09/06/22 09/06/22 16:16 19:25 Temperature 97.6 F Pulse Rate 67 54 L Respiratory 20 18 Rate Blood Pressure 140/86 151/93 O2 Sat by Pulse 96 98 Oximetry Medical Decision Making - Medical Decision Making Was pt. sent in by a medical professional or institution ([facility]ure[facility], CRISIS SPECIALIST, urgent care, hospital, or senior living...) When possible be specific @ -No Did you speak to anyone other than the patient for history (EMS, parent, family, police, friend...)? What history was obtained from this source @ -No Did you review nursing and triage notes (agree or disagree)? Why? @ -I reviewed and agree with nursing and triage notes Were old charts reviewed (outside hosp., previous admission, EMS record, old EKG, old radiological studies, urgent care reports/EKG's, senior living records)? Report findings @ -No old charts were reviewed Differential Diagnosis (chest pain, altered mental status, abdominal pain women, abdominal pain men, vaginal bleeding, weakness, fever, dyspnea, syncope, headache, dizziness, GI bleed, back pain, seizure, CVA, palpatations, mental health, musculoskeletal)? @ - MDM Differential Back Pain: Strain, zoster, cauda equina syndrome, epidural abscess, vertebral osteomyelitis, discitis, fracture, subluxation, disc herniation, DJD, spinal stenosis, dissection, AAA, pancreatitis, peptic ulcer disease, pyelonephritis, kidney stone this is not meant to be an all-inclusive list. EKG interpreted by me (3pts min.). @ -As above X-rays interpreted by me (1pt min.). @ -None done CT interpreted by me (1pt min.). @ -None done U/S interpreted by me (1pt. min.). @ -None done What testing was considered but not performed or refused? (CT, X-rays, U/S, labs)? Why? @ -None What meds were considered but not given or refused? Why? @ -None Did you discuss the management of the patient with other professionals (professionals i.e. , PA, CRISIS SPECIALIST, lab, RT, psych nurse, clinical social work therapist, lawyers, teacher, occupational medicine officer, shoe parts caser)? Give summary @ -No Was smoking cessation discussed for >3mins.? @ -No Was critical care preformed (if so, how long)? @ -No Were there social determinants of health that impacted care today? How? (Homelessness, low income, unemployed, alcoholism, drug addiction, transportation, low edu. Level, literacy, decrease access to med. care, skilled nursing, rehab)? @ -No Was there de-escalation of care discussed even if they declined (Discuss DNR or withdrawal of care, Hospice)? DNR status @ -No What co-morbidities impacted this encounter? (DM, HTN, Smoking, COPD, CAD, Cancer, CVA, ARF, Chemo, Hep., AIDS, mental health diagnosis, sleep apnea, morbid obesity)? @ -None Was patient admitted / discharged? Hospital course, mention meds given and route, prescriptions, significant lab abnormalities, going to OR and other pertinent info. @ -Patient is a 42-year-old female presenting with chief complaint of back pain. She admits a history of kidney stones and also states that she has been lifting objects frequently at work. Urine shows no sign of bleeding or infectious process. Pain seems musculoskeletal in origin, patient is given analgesic medication and lidocaine patch. Educated on findings and treatment plan. Follow-up with PCP. Report back to ER with any new or worsening symptoms. Discussed return parameters and answered all questions. Patient conveyed verbal understanding and agreed to the plan. I discussed this case in detail with my attending Dr. Burnett Undiagnosed new problem with uncertain prognosis? @ -No Drug Therapy requiring intensive monitoring for toxicity (Heparin, Nitro, Insulin, Cardizem)? @ -No Were any procedures done? @ -No Diagnosis/symptom? @ -Mechanical back pain Acute, or Chronic, or Acute on Chronic? @ -Acute Uncomplicated (without systemic symptoms) or Complicated (systemic symptoms)? @ -Uncomplicated Side effects of treatment? @ -No Exacerbation, Progression, or Severe Exacerbation? @ -No Poses a threat to life or bodily function? How? (Chest pain, [place], [place], pneumonia, PE, COPD, DKA, ARF, appy, cholecystitis, CVA, Diverticulitis, Homicidal, Suicidal, threat to staff... and all critical care pts) @ -No - Lab Data Lab Results 09/06/22 Range/Units 17:42 Urine Color Yellow Urine Appearance Clear (Clear) Urine pH 5.5 (5.0-8.0) Ur Specific [place] 1.025 (1.001-1.035) Urine Protein Trace H (Negative) Urine Glucose (UA) Negative (Negative) Urine Ketones Negative (Negative) Urine Blood Negative (Negative) Urine Nitrite Negative (Negative) Urine Bilirubin Negative (Negative) Urine Urobilinogen <2.0 (<2.0) mg/dL Ur Leukocyte Esterase Negative (Negative) Disposition Clinical Impression: Mechanical back pain Disposition: HOME SELF-CARE Condition: Good Instructions (If sedation given, give patient instructions): Back Pain (ED) Additional Instructions: Follow-up with PCP. Report back to ER with any worsening symptoms. Take Motrin and Tylenol as needed for pain control. Is patient prescribed a controlled substance at d/c from ED?: No Referrals: Nicole Clark [Primary Care Provider] - 1-2 days Time of Disposition: 18:44
[2022-09-06 19:26] VITALS: BP 151/93; PULSE 54; RESP 18
== END 2022-09-06 19:26 | disposition home or self-care (01) ==
LOC: EC 16:05
DX: M54.50 Low back pain, unspecified (principal); J45.909 Unspecified asthma, uncomplicated; F41.9 Anxiety disorder, unspecified; F32.A Depression, unspecified; Z87.891 Personal history of nicotine dependence; Z88.6 Allergy status to analgesic agent; Z88.2 Allergy status to sulfonamides; X50.9XXA Other and unspecified overexertion or strenuous movements or postures, initial encounter
CPT/HCPCS: 81003; 99283; 96372 ×3; J2360; J1170; J1885

== ENCOUNTER → 2022-09-06 | Outpatient (CLI) | payer OTHER ==
--- NOTE | 2022-09-06 15:15 | XR ---
EXAMINATION TYPE: XR KUB DATE OF EXAM: 09/06/2022 3:01 PM CLINICAL HISTORY: Left-sided kidney stones and left flank pain for 2 weeks. TECHNIQUE: Two supine KUB images of the abdomen are obtained. COMPARISON: Abdominal x-rays December 28, 2021. FINDINGS: Gas is seen in a nondistended stomach. Scattered gas is seen in non-distended small bowel l oops. Gas and fecal material is seen in non-distended colon. Loss of haustration left lower quadrant. Sacralized L5 segment redemonstrated. No free air. Tiny left-sided pelvic phleboliths. Lung bases ar e clear. IMPRESSION: Overall nonobstructive bowel gas pattern. No definitive nephrolithiasis.
== END | disposition home or self-care (01) ==
LOC: RADXRMAIN 14:43
PROVIDERS: ATTEND Urology
DX: N20.0 Calculus of kidney (principal)
CPT/HCPCS: 74018

== ENCOUNTER 2022-09-08 17:44 | Emergency (ER) | payer OTHER ==
[2022-09-08] MEDS ORDERED: SODIUM CHLORIDE 0.9% 1,000 ML IV STA (18:56)
[2022-09-08] MEDS ORDERED: ONDANSETRON 4 MG/2 ML VIAL IVP STA (18:56)
[2022-09-08] MEDS ORDERED: HYDROmorphone 1 MG/ML 1 ML SYRINGE IVP STA (19:00)
[2022-09-08 19:45] LABS: Basophils % (A) 0 %; Eosinophils # (A) 0.4 k/uL (0-0.7); Eosinophils % (A) 3 %; HCT 42.1 % (34.0-46.0); HGB 14.2 gm/dL (11.4-16.0); Lymphocytes # (A) 2.8 k/uL (1.0-4.8); Lymphocytes % (A) 21 %; MCH 28.5 pg (25.0-35.0); MCHC 33.8 g/dL (31.0-37.0); MCV 84.3 fL (80.0-100.0); Mean Platelet Volume 7.4; Monocytes # (A) 0.6 k/uL (0-1.0); Monocytes % (A) 5 %; Neutrophils % (A) 69 %; Platelet Count 255 k/uL (150-450); RDW 13.4 % (11.5-15.5); WBC 12.9 k/uL (3.8-10.6)
[2022-09-08 20:01] LABS: Appearance,Urine Clear (Clear); Bacteria,Urine Rare /hpf; Bilirubin,Urine Negative (Negative); Blood,Urine Negative (Negative); Color,Urine Yellow; Glucose,Urine (UA) Negative (Negative); Ketones,Urine Negative (Negative); Leukocyte Esterase,Urine Trace (Negative); Mucus,Urine Rare /hpf; Nitrite,Urine Negative (Negative); PH, Urine 5.5 (5.0-8.0); Protein,Urine Negative (Negative); RBC,Urine 1 /hpf (0-5); Specific Gravity,Urine 1.015 (1.001-1.035); Squamous Epithelial Cell,Urine 5 /hpf (0-4); Urobilinogen,Urine <2.0 mg/dL (<2.0); WBC,Urine 3 /hpf (0-5)
[2022-09-08 20:04] LABS: ALT 24 U/L (4-34); AST 25 U/L (14-36); African American GFR (CKD) >90 (>60 ml/min/1.73 sqM); Alkaline Phosphatase 59 U/L (38-126); Anion Gap 8 mmol/L; Blood Urea Nitrogen 12 mg/dL (7-17); Carbon Dioxide 25 mmol/L (22-30); Chloride 108 mmol/L (98-107); Glucose 116 mg/dL (74-99); Lipase 68 U/L (23-300); Non-African American GFR(CKD) >90 (>60 ml/min/1.73 sqM); Potassium 4.2 mmol/L (3.5-5.1); Sodium 141 mmol/L (137-145); Total Bilirubin 0.4 mg/dL (0.2-1.3); Total Protein 7.3 g/dL (6.3-8.2)
--- NOTE | 2022-09-08 20:05 | CT ---
EXAMINATION TYPE: CT abdomen pelvis wo con CT DLP: 1319.4 mGycm, Automated exposure control for dose reduction was used. DATE OF EXAM: 09/08/2022 7:44 PM COMPARISON: CT abdomen pelvis most recent from 08/19/2020 CLINICAL INDICATION:Female, 42 years old with history of abdominal pain; flank pain, hx of stones TECHNIQUE: Axial CT of the abdomen and pelvis. Sagittal and coronal reformats were created on a [employer] workstation. Contrast used: None Oral contrast used: without Oral Contrast FINDINGS: LOWER CHEST: Unremarkable ABDOMEN LIVER: Unremarkable GALLBLADDER AND BILE DUCTS: Unremarkable. PANCREAS: Unremarkable. SPLEEN: Unremarkable. ADRENAL GLANDS: Unremarkable. KIDNEYS AND URETERS: Bilateral nonobstructing 2 mm renal calculi. No evidence for hydronephrosis. PELVIS BLADDER: Unremarkable REPRODUCTIVE: Unremarkable. ABDOMEN & PELVIS STOMACH AND BOWEL: No evidence of bowel obstruction. PERITONEUM/RETROPERITONEUM: No evidence of pneumoperitoneum or free fluid. VASCULATURE: No evidence of aortic aneurysm. MUSCULOSKELETAL: No acute osseous abnormalities, there is a transitional vertebrae present. LYMPH NODES: No gross evidence for lymphadenopathy. SOFT TISSUE/ABDOMINAL WALL: Small fat-containing umbilical hernia. IMPRESSION: Bilateral nonobstructing 2 mm renal calculi, no evidence of hydronephrosis. No acute abdominal proces s.
[2022-09-08] MEDS ORDERED: traMADol 50 MG STARTER PACK 3 TAB BTL PO STA (21:26)
[2022-09-08] MEDS ORDERED: IBUPROFEN 600 MG STARTER PACK 4 TAB BTL PO STA (21:26)
[2022-09-08] MEDS ORDERED: CYCLOBENZAPRINE 10MG STARTER 3 TAB BTL PO STA (21:26)
--- NOTE | 2022-09-08 21:31 | ED ---
General Adult HPI - General Chief complaint: Back Pain/Injury Stated complaint: back pain Time Seen by Provider: 09/08/22 18:05 Source: patient Mode of arrival: ambulatory - History of Present Illness Initial comments: 42-year-old female with past medical history of asthma since to the emergency department reporting left-sided flank pain. She does have a history of kidney stones and is concerned for similar. She was just seen in the emergency Department yesterday for same complaints. She had an outpatient KUB performed which did not demonstrate a kidney stone. Laboratory studies and urine were conducted which further did not have abnormal findings. She was treated as muscular skeletal pain and discharged home. States that she has been taking Tylenol without relief. Feels as of the pain has become more proximal. The pain does not wrap around to her abdomen or go to the groin. She has some increased frequency of urination. No fevers. She denies any trauma. No chest pain or shortness of breath no nausea or vomiting. Denies concern for as she has had a tubal ligation. No vaginal bleeding or discharge. Denies diarrhea, cuts patient, black or bloody stools. No other alleviating, precipitating or modifying factors - Related Data Home Medications Medication Instructions Recorded Confirmed Acetaminophen [Tylenol Extra 1,000 mg PO Q6H PRN 09/08/22 09/08/22 Strength] Clobetasol Propionate [Temovate 1 applic TOPICAL DAILY PRN 09/08/22 09/08/22 0.05% Cream] Ergocalciferol (Vitamin D2) 1,250 mcg PO SA 09/08/22 09/08/22 [Drisdol (50,000 Iu)] QUEtiapine FUMARATE [SEROquel] 25 mg PO HS 09/08/22 09/08/22 Previous Rx's Medication Instructions Recorded Cyclobenzaprine [Flexeril] 10 mg PO TID PRN #15 tab 09/08/22 Ibuprofen [Motrin] 600 mg PO Q8HR PRN #30 tab 09/08/22 traMADol HCl [Ultram] 50 mg PO Q6H PRN #12 tab 09/08/22 Allergies Allergy/AdvReac Type Severity Reaction Status Date / Time erythromycin base Allergy Rash/Hives Verified 09/08/22 19:56 sulfamethoxazole Allergy Rash/Hives Verified 09/08/22 19:56 [From Bactrim] trimethoprim [From Bactrim] Allergy Rash/Hives Verified 09/08/22 19:56 Review of Systems ROS Statement: Those systems with pertinent positive or pertinent negative responses have been documented in the HPI. ROS Other: All systems not noted in ROS Statement are negative. Past Medical History Past Medical History: Asthma, GERD/Reflux, Skin Disorder, Syncope Additional Past Medical History / Comment(s): childhood asthma, heartburn and epigastric pain, eczema, hx kidney stones. recent bronchitis 11/24/21 treated with steroid pack and augementin (completed) History of Any Multi-Drug Resistant Organisms: None Reported Past Surgical History: Section, Cholecystectomy, Orthopedic Surgery, Tonsillectomy, Tubal Ligation Additional Past Surgical History / Comment(s): LEFT KNEE ARTHROSCOPY, CYSTOSCOPY, LITHOTRIPSY Past Anesthesia/Blood Transfusion Reactions: Previous Problems w/ Anesthesia, Postoperative Nausea & Vomiting (PONV) Additional Past Anesthesia/Blood Transfusion Reaction / Comment(s): woke up crying one time Past Psychological History: Anxiety, Depression Smoking Status: Former smoker Past Alcohol Use History: None Reported Past Drug Use History: None Reported - Past Family History Mother Family Medical History: Cancer Additional Family Medical History / Comment(s): Melanoma Father Family Medical History: No Reported History General Exam General appearance: alert, in no apparent distress Head exam: Present: atraumatic, normocephalic, normal inspection Eye exam: Present: normal appearance, PERRL, EOMI. Absent: scleral icterus, conjunctival injection, periorbital swelling ENT exam: Present: normal exam, mucous membranes moist Neck exam: Present: normal inspection. Absent: tenderness, meningismus, lymphadenopathy Respiratory exam: Present: normal lung sounds bilaterally. Absent: respiratory distress, wheezes, rales, rhonchi, stridor Cardiovascular Exam: Present: regular rate, normal rhythm, normal heart sounds. Absent: systolic murmur, diastolic murmur, rubs, gallop, clicks GI/Abdominal exam: Present: soft, normal bowel sounds. Absent: distended, tenderness, guarding, rebound, rigid Extremities exam: Present: normal inspection, full ROM, normal capillary refill. Absent: tenderness, pedal edema, joint swelling, calf tenderness Back exam: Present: normal inspection Neurological exam: Present: alert, oriented X3, CN II-XII intact Psychiatric exam: Present: normal affect, normal mood Skin exam: Present: warm, dry, intact, normal color. Absent: rash Course Vital Signs 09/08/22 09/08/22 09/08/22 18:03 19:18 21:45 Temperature 97.5 F L 98.2 F Pulse Rate 66 63 52 L Respiratory 18 20 16 Rate Blood Pressure 159/95 146/85 144/84 O2 Sat by Pulse 99 100 Oximetry Medical Decision Making - Medical Decision Making Was pt. sent in by a medical professional or institution ([facility]ARNA Jauregui, [employer], urgent care, hospital, or fdc...) When possible be specific @ -No Did you speak to anyone other than the patient for history (EMS, parent, family, police, friend...)? What history was obtained from this source @ -No Did you review nursing and triage notes (agree or disagree)? Why? @ -I reviewed and agree with nursing and triage notes Were old charts reviewed (outside hosp., previous admission, EMS record, old EKG, old radiological studies, urgent care reports/EKG's, fdc records)? Report findings @ - old charts were reviewed - recent ED charting for same complaint Differential Diagnosis (chest pain, altered mental status, abdominal pain women, abdominal pain men, vaginal bleeding, weakness, fever, dyspnea, syncope, headache, dizziness, GI bleed, back pain, seizure, CVA, palpatations, mental health, musculoskeletal)? @ -acs, pleurisy, chest wall pain, nstemi, pe, kidney stone, msk pain, shingles EKG interpreted by me (3pts min.). @ -no X-rays interpreted by me (1pt min.). @ -no CT interpreted by me (1pt min.). @ -yes U/S interpreted by me (1pt. min.). @ -None done What testing was considered but not performed or refused? (CT, X-rays, U/S, labs)? Why? @ -None What meds were considered but not given or refused? Why? @ -None Did you discuss the management of the patient with other professionals (professionals i.e. APARNA Jauregui, [employer] INTER[employer], lab, RT, psych nurse, medical social worker, oracle erp architect, teacher, special skills officer, case liner)? Give summary @ -No Was smoking cessation discussed for >3mins.? @ -No Was critical care preformed (if so, how long)? @ -No Were there social determinants of health that impacted care today? How? (Homelessness, low income, unemployed, alcoholism, drug addiction, transportation, low edu. Level, literacy, decrease access to med. care, prison, rehab)? @ -No Was there de-escalation of care discussed even if they declined (Discuss DNR or withdrawal of care, Hospice)? DNR status @ -No What co-morbidities impacted this encounter? (DM, HTN, Smoking, COPD, CAD, Cancer, CVA, ARF, Chemo, Hep., AIDS, mental health diagnosis, sleep apnea, morbid obesity)? @ -Nnephrolitisis Was patient admitted / discharged? Hospital course, mention meds given and route, prescriptions, significant lab abnormalities, going to OR and other pertinent info. @ -On arrival the patient was placed into room 17. A thorough history and physical exam was performed. IV access established. Patient was given pain medications. Laboratory studies are conducted and reviewed. CT is performed after the risks of radiation exposure discussed with the patient. CT demonstrated some intrarenal calculi however no active hydronephrosis or ureteral stones. There are no other identifiable signs as why the patient is having the pain. Differentials discussed patient. At this time we did discuss pain control. She will be discharged home and needs to follow-up with her primary care doctor and may need further evaluation. Return for any new or worsening symptoms. Patient was agreeable to this was discharged home in stable condition Undiagnosed new problem with uncertain prognosis? @ -No Drug Therapy requiring intensive monitoring for toxicity (Heparin, Nitro, Insulin, Cardizem)? @ -No Were any procedures done? @ -No Diagnosis/symptom? @ -acute left sided flank pain, suspected msk strain Acute, or Chronic, or Acute on Chronic? @ -acute Uncomplicated (without systemic symptoms) or Complicated (systemic symptoms)? @ -complicated Side effects of treatment? @ -No Exacerbation, Progression, or Severe Exacerbation? @ -No Poses a threat to life or bodily function? How? (Chest pain, USA, MA, pneumonia, PE, COPD, DKA, ARF, appy, cholecystitis, CVA, Diverticulitis, Homicidal, Suicidal, threat to staff... and all critical care pts) @ -No - Lab Data Result diagrams: 04/09/23 19:25 09/08/22 19:25 Lab Results 09/08/22 09/08/22 09/08/22 Range/Units 19:25 19:25 19:25 WBC 12.9 H (3.8-10.6) k/uL RBC 5.00 (3.80-5.40) m/uL Hgb 14.2 (11.4-16.0) gm/dL Hct 42.1 (34.0-46.0) % MCV 84.3 (80.0-100.0) fL MCH 28.5 (25.0-35.0) pg MCHC 33.8 (31.0-37.0) g/dL RDW 13.4 (11.5-15.5) % Plt Count 255 (150-450) k/uL MPV 7.4 Neutrophils % 69 % Lymphocytes % 21 % Monocytes % 5 % Eosinophils % 3 % Basophils % 0 % Neutrophils # 9.0 H (1.3-7.7) k/uL Lymphocytes # 2.8 (1.0-4.8) k/uL Monocytes # 0.6 (0-1.0) k/uL Eosinophils # 0.4 (0-0.7) k/uL Basophils # 0.0 (0-0.2) k/uL Sodium 141 (137-145) mmol/L Potassium 4.2 (3.5-5.1) mmol/L Chloride 108 H (98-107) mmol/L Carbon Dioxide 25 (22-30) mmol/L Anion Gap 8 mmol/L BUN 12 (7-17) mg/dL Creatinine 0.65 (0.52-1.04) mg/dL Est GFR (CKD-EPI)AfAm >90 (>60 ml/min/1.73 sqM) Est GFR (CKD-EPI)NonAf >90 (>60 ml/min/1.73 sqM) Glucose 116 H (74-99) mg/dL Plasma Lactic Acid Randell (0.7-2.0) mmol/L Calcium 9.0 (8.4-10.2) mg/dL Total Bilirubin 0.4 (0.2-1.3) mg/dL AST 25 (14-36) U/L ALT 24 (4-34) U/L Alkaline Phosphatase 59 (38-126) U/L Total Protein 7.3 (6.3-8.2) g/dL Albumin 4.0 (3.5-5.0) g/dL Lipase 68 (23-300) U/L Urine Color Yellow Urine Appearance Clear (Clear) Urine pH 5.5 (5.0-8.0) Ur Specific [place] 1.015 (1.001-1.035) Urine Protein Negative (Negative) Urine Glucose (UA) Negative (Negative) Urine Ketones Negative (Negative) Urine Blood Negative (Negative) Urine Nitrite Negative (Negative) Urine Bilirubin Negative (Negative) Urine Urobilinogen <2.0 (<2.0) mg/dL Ur Leukocyte Esterase Trace H (Negative) Urine RBC 1 (0-5) /hpf Urine WBC 3 (0-5) /hpf Ur Squamous Epith Cells 5 H (0-4) /hpf Urine Bacteria Rare H (None) /hpf Urine Mucus Rare H (None) /hpf Urine HCG, Qual (Not Detectd) 09/08/22 09/08/22 Range/Units 19:25 19:25 WBC (3.8-10.6) k/uL RBC (3.80-5.40) m/uL Hgb (11.4-16.0) gm/dL Hct (34.0-46.0) % MCV (80.0-100.0) fL MCH (25.0-35.0) pg MCHC (31.0-37.0) g/dL RDW (11.5-15.5) % Plt Count (150-450) k/uL MPV Neutrophils % % Lymphocytes % % Monocytes % % Eosinophils % % Basophils % % Neutrophils # (1.3-7.7) k/uL Lymphocytes # (1.0-4.8) k/uL Monocytes # (0-1.0) k/uL Eosinophils # (0-0.7) k/uL Basophils # (0-0.2) k/uL Sodium (137-145) mmol/L Potassium (3.5-5.1) mmol/L Chloride (98-107) mmol/L Carbon Dioxide (22-30) mmol/L Anion Gap mmol/L BUN (7-17) mg/dL Creatinine (0.52-1.04) mg/dL Est GFR (CKD-EPI)AfAm (>60 ml/min/1.73 sqM) Est GFR (CKD-EPI)NonAf (>60 ml/min/1.73 sqM) Glucose (74-99) mg/dL Plasma Lactic Acid Randell 1.3 (0.7-2.0) mmol/L Calcium (8.4-10.2) mg/dL Total Bilirubin (0.2-1.3) mg/dL AST (14-36) U/L ALT (4-34) U/L Alkaline Phosphatase (38-126) U/L Total Protein (6.3-8.2) g/dL Albumin (3.5-5.0) g/dL Lipase (23-300) U/L Urine Color Urine Appearance (Clear) Urine pH (5.0-8.0) Ur Specific [place] (1.001-1.035) Urine Protein (Negative) Urine Glucose (UA) (Negative) Urine Ketones (Negative) Urine Blood (Negative) Urine Nitrite (Negative) Urine Bilirubin (Negative) Urine Urobilinogen (<2.0) mg/dL Ur Leukocyte Esterase (Negative) Urine RBC (0-5) /hpf Urine WBC (0-5) /hpf Ur Squamous Epith Cells (0-4) /hpf Urine Bacteria (None) /hpf Urine Mucus (None) /hpf Urine HCG, Qual Not Detected (Not Detectd) Disposition Clinical Impression: Back pain Disposition: HOME SELF-CARE Condition: Stable Instructions (If sedation given, give patient instructions): Acute Low Back Pain (ED) Additional Instructions: Alternate taking the tramadol with Motrin every 4 hours. You may substitute a muscle relaxer for the tramadol but DO NOT take the muscle relaxer and tramadol together. Follow-up with your doctor as you may need further testing. Return for any new or worsening symptoms Prescriptions: Cyclobenzaprine [Flexeril] 10 mg PO TID PRN #15 tab PRN Reason: Muscle Spasm Ibuprofen [Motrin] 600 mg PO Q8HR PRN #30 tab PRN Reason: Pain traMADol HCl [Ultram] 50 mg PO Q6H PRN #12 tab PRN Reason: Pain Is patient prescribed a controlled substance at d/c from ED?: Yes When asked, does pt state using other controlled substances?: No If prescribed controlled substance>3 days was MAPS reviewed?: Prescribed <3 Days Referrals: Nicole Clark [Primary Care Provider] - 1-2 days Time of Disposition: 21:31
[2022-09-08 21:47] VITALS: BP 144/84; PULSE 52; RESP 16; TEMP 98.2
== END 2022-09-08 21:45 | disposition home or self-care (01) ==
LOC: EC 17:44
DX: M54.9 Dorsalgia, unspecified (principal); N20.0 Calculus of kidney; J45.909 Unspecified asthma, uncomplicated; F41.9 Anxiety disorder, unspecified; F32.A Depression, unspecified; Z87.891 Personal history of nicotine dependence; Z88.2 Allergy status to sulfonamides; Z88.1 Allergy status to other antibiotic agents
CPT/HCPCS: 36415; 80053; 83605; 83690; 85025; 81001; 81025; 74176; 99284; 96374; 96375; 96361 ×2; J2405; J1170

== ENCOUNTER → 2023-01-27 | Outpatient (CLI) | payer OTHER ==
--- NOTE | 2023-01-27 12:43 | XR ---
EXAMINATION TYPE: XR KUB DATE OF EXAM: 01/27/2023 11:26 AM INDICATION: Patient age:Female; 42 years old; Reason for study: N20.0 CALCULUS OF KIDNEY; . COMPARISON: None. TECHNIQUE: One radiographic view of the abdomen was obtained. FINDINGS: The bowel gas pattern is nonspecific without dilated loops of small or large bowel. There i s no evidence for organomegaly or pneumoperitoneum. The osseous structures are intact. No abnormal calcifications are present. Fecal material and gas are demonstrated throughout the colon and rectum. IMPRESSION: 1. No renal calculi definitively visualized. 2. Nonspecific bowel gas pattern without radiographic evidence for acute process.
== END | disposition home or self-care (01) ==
LOC: RADXRMAIN 10:58
PROVIDERS: ATTEND Urology
DX: N20.0 Calculus of kidney (principal); R14.0 Abdominal distension (gaseous)
CPT/HCPCS: 74018

== ENCOUNTER → 2024-03-03 | Outpatient (CLI) | payer OTHER ==
--- NOTE | 2024-03-04 14:19 | MM ---
Reason for Exam: Screening (asymptomatic). Patient History: Menarche at age 18. First Full-Term at age 29. Maternal aunt had breast cancer, age 64. Last menstrual period: 02/25/2024 Risk Values: Esha 5 year model risk: 0.6%. NCI Lifetime model risk: 10.1%. Tissue Density: The breasts are almost entirely fatty. Findings: Analyzed By CAD. Right breast: There is no suspicious group of microcalcifications or new suspicious mass. Left breast: There is no suspicious group of microcalcifications or new suspicious mass. Overall Assessment: Negative, BI-RAD 1 Management: Screening Mammogram of both breasts in [address] [facility] will attempt to contact patient to return for supplemental views and ultrasound if indicated. Patient should continue monthly self-breast exams. A clinical breast exam by your physician is recommended on an annual basis. This exam should not preclude additional follow-up of suspicious palpable abnormalities. Note on Esha scores and lifetime risk: 1. A Esha score greater than 3% is considered moderate risk. If this is the case, consider specialist referral to assess eligibility for a risk reducing agent. 2. If overall lifetime risk for the development of breast cancer is 20% or higher, the patient may qualify for future screening with alternating mammogram and breast MRI. [facility], , 03/04/2024 2:17 PM. Electronically signed and approved by: Elliott Gao DO
== END | disposition home or self-care (01) ==
LOC: RADMAMWWP 09:16
PROVIDERS: ATTEND Family Medicine
DX: Z12.31 Encounter for screening mammogram for malignant neoplasm of breast
CPT/HCPCS: 77067

== ENCOUNTER → 2024-08-26 | Outpatient (CLI) | payer OTHER ==
[2024-08-26 19:10] LABS: Basophils # (A) 0.06 X 10*3/uL (0.00-0.10); Basophils % (A) 0.6 %; Eosinophils # (A) 0.19 X 10*3/uL (0.04-0.35); Eosinophils % (A) 1.9 %; HCT 42.4 % (37.2-46.3); HGB 13.9 g/dL (12.0-15.0); Lymphocytes % (A) 35.2 %; MCH 28.7 pg (27.0-32.0); MCHC 32.8 g/dL (32.0-37.0); MCV 87.4 FL (80.0-97.0); NRBC Per 100 WBC 0 X 10*3/uL (0.00-0.01); Neutrophils # (A) 5.67 X 10*3/uL (1.80-7.70); Platelet Count 277 X 10*3/uL (140-440); RBC 4.85 X 10*6/uL (4.10-5.20); RDW 13.1 % (11.5-14.5); WBC 9.95 X 10*3/uL (4.50-10.00)
[2024-08-26 19:11] LABS: ALT 29 U/L (8-44); AST 24 U/L (13-35)
== END | disposition home or self-care (01) ==
LOC: LABWHC1 15:02
PROVIDERS: ATTEND Dermatology MOHS-Micrographic Surgery
DX: L73.2 Hidradenitis suppurativa (principal); Z79.899 Other long term (current) drug therapy
CPT/HCPCS: 36415; 82565; 84450; 84460; 85025; 86480